=== PATIENT | male | born 1960 | race Caucasian/White ===

== ENCOUNTER 2017-05-15 17:47 | Emergency (ER) | payer MEDICARE, MEDICAID, SELFPAY ==
[2017-05-15 17:32] VITALS: BP 142/85; PULSE 79; RESP 18; O2SAT 99; BMI 23.6
--- NOTE | 2017-05-15 17:52 | XR_ITS ---
EXAM: XR cervical spine 5V HISTORY: Neck pain following injury ITS.REASON: fall ORDERING PHYSICIAN: Daneil Holman MD PATIENT AGE: 57 years COMPARISON: None FINDINGS: There is degenerative disc disease at C4-C5, C5-C6, and C6-C7. There is normal alignment. No fracture or dislocation. Foraminal narrowing is present on the left at C6-C7. Incidental carotid calcifications noted. IMPRESSION: 1. No acute fracture. 2. Cervical spondylosis with degenerative disc disease and foraminal narrowing
--- NOTE | 2017-05-15 17:52 | XR_ITS ---
XR shoulder RT min 2V HISTORY: Pain following injury ITS.REASON: fall ORDERING PHYSICIAN: Daniel Holman MD PATIENT AGE: 57 years COMPARISON: None FINDINGS: No fracture or dislocation. No lytic or blastic change. There is normal mineralization. The joint spaces are well-preserved. No significant degenerative/arthritic changes. No erosive changes evident. There is no fracture of the right fourth and fifth ribs posterior laterally IMPRESSION: No acute finding
--- NOTE | 2017-05-15 17:52 | XR_ITS ---
XR humerus RT CLINICAL INDICATION: Pain following injury ITS.REASON: fall ORDERING PHYSICIAN: Daniel Holman MD PATIENT AGE: 57 years COMPARISON: None FINDINGS: No fracture or dislocation IMPRESSION: Negative right humerus
--- NOTE | 2017-05-15 17:56 | HMH.EDFALL ---
ED Disposition Clinical Impression: Contusion of arm, right, Fall, DJD (degenerative joint disease) of cervical spine Disposition: Home, Self-Care Condition on Discharge: Fair Additional Instructions: 1- rest. 2- ice. 3- elevate. 4- use home pain medicine 5- follow up with pcp on final a xray reports. - Critical Care Critical Care Time: No Attestation: On , the high probability of a clinically significant, sudden or life threatening deterioration of the following system(s) required my full and direct attention, intervention and personal management. The time I documented below is in addition to time spent performing reported procedures but includes the following listed in this critical care notation. Medical Decision Making - Karel Inquiry Pt receiving controlled substance: No Karel was queried for this patient: No Vital Signs: 05/15/17 17:32 Temperature Source Oral Pulse Rate [Right Brachial] 79 Respiratory Rate 18 Blood Pressure [Right Arm] 142/85 Blood Pressure Mean [Right Arm] 104 Blood Pressure Source [Right Arm] Automatic Cuff Blood Pressure Position [Right Arm] Sitting 02 Sat by Pulse Oximetry 99 Oxygen Delivery Method Room Air Orders (Tests/Meds): ORDERS Category Date Time Status Cervical spine XR 5 views [XR cervical spine 5V] Stat Exams 05/15/17 17:52 Taken XR humerus RT Stat Exams 05/15/17 17:52 Taken XR shoulder RT min 2V Stat Exams 05/15/17 17:52 Taken - Radiology Data #1 Image(s): C-Spine, Shoulder, Humerus Image Reviewed: Yes I reviewed the patient's radiology image Preliminary Findings: Normal/NAD DJD of the cervical spine otherwise x-ray shows no fractures dislocation or subluxation. Fall HPI - General Chief Complaint: Fall Stated Complaint: fall with right arm injury Time Seen by Provider: 05/15/17 18:00 Mode of Arrival: EMS Limitations: No Limitations Description of Symptoms (Recalled from ER Triage Doc. by RN): fell yesterday and injured right elbow - History of Present Illness HPI Narrative: 57 years old male with history of coronary artery disease and chronic pain syndrome. Yesterday , the patient claims that he tripped over a box and hit his right arm on an arm chair. He denies being intoxicated, his right arm hurts when he uses it. He has a pain that radiates up to his right shoulder and tingling sensation that radiates down to the fourth and fifth digit. He has no loss of movement he has no loss of color or sensation. He denies loss of lower extremity power or loss of urine or bowel control. He denies head injury or neck pain. Onset (ago): day(s) (Fell yesterday.) Fall from: standing Fall witnessed: no Place fall occurred: home Loss of consciousness: none Prolonged down time: no Symptoms prior to fall: none Context: tripped/slipped Location of injury - extremities: Right: arm (Mid humerus pain and tenderness. ) Severity: mild Quality: dull Associated symptoms (after fall): denies - Related Data Allergies Allergy/AdvReac Type Severity Reaction Status Date / Time acetaminophen [From PERCOCET] Allergy Unknown Unverified 02/08/17 14:12 codeine [CODEINE] Allergy Unknown Unverified 02/08/17 14:12 meperidine [From DEMEROL] Allergy Unknown Unverified 02/08/17 14:12 oxycodone [From PERCOCET] Allergy Unknown Unverified 02/08/17 14:12 Penicillins [PENICILLINS] Allergy Unknown Unverified 02/08/17 14:12 sertraline [From ZOLOFT] Allergy Unknown Unverified 02/08/17 14:12 [facility] History I have reviewed the patient's past medical history: Yes - Social History Educational Level: Completed High School Smoking Status: Current some day smoker Alcohol Intake: never - Psychiatric History Expresses thoughts of harming self/others: None Suicide Plan Description: No Plan ROS Obtained: Yes All systems reviewed & no additional complaints Physical Exam - General General appearance: alert, in no apparent distress - Head Head exa
--- NOTE | 2017-05-15 17:59 | ED_ITS ---
ED Disposition Clinical Impression: Contusion of arm, right, Fall, DJD (degenerative joint disease) of cervical spine Disposition: Home, Self-Care Condition on Discharge: Fair Additional Instructions: 1- rest. 2- ice. 3- elevate. 4- use home pain medicine 5- follow up with pcp on final a xray reports. - Critical Care Critical Care Time: No Attestation: On , the high probability of a clinically significant, sudden or life threatening deterioration of the following system(s) required my full and direct attention, intervention and personal management. The time I documented below is in addition to time spent performing reported procedures but includes the following listed in this critical care notation. Medical Decision Making - Karel Inquiry Pt receiving controlled substance: No Karel was queried for this patient: No Vital Signs: 05/15/17 17:32 Temperature Source Oral Pulse Rate [Right Brachial] 79 Respiratory Rate 18 Blood Pressure [Right Arm] 142/85 Blood Pressure Mean [Right Arm] 104 Blood Pressure Source [Right Arm] Automatic Cuff Blood Pressure Position [Right Arm] Sitting 02 Sat by Pulse Oximetry 99 Oxygen Delivery Method Room Air Orders (Tests/Meds): ORDERS Category Date Time Status Cervical spine XR 5 views [XR cervical spine 5V] Stat Exams 05/15/17 17:52 Taken XR humerus RT Stat Exams 05/15/17 17:52 Taken XR shoulder RT min 2V Stat Exams 05/15/17 17:52 Taken - Radiology Data #1 Image(s): C-Spine, Shoulder, Humerus Image Reviewed: Yes I reviewed the patient's radiology image Preliminary Findings: Normal/NAD DJD of the cervical spine otherwise x-ray shows no fractures dislocation or subluxation. Fall HPI - General Chief Complaint: Fall Stated Complaint: fall with right arm injury Time Seen by Provider: 05/15/17 18:00 Mode of Arrival: EMS Limitations: No Limitations Description of Symptoms (Recalled from ER Triage Doc. by RN): fell yesterday and injured right elbow - History of Present Illness HPI Narrative: 57 years old male with history of coronary artery disease and chronic pain syndrome. Yesterday , the patient claims that he tripped over a box and hit his right arm on an arm chair. He denies being intoxicated, his right arm hurts when he uses it. He has a pain that radiates up to his right shoulder and tingling sensation that radiates down to the fourth and fifth digit. He has no loss of movement he has no loss of color or sensation. He denies loss of lower extremity power or loss of urine or bowel control. He denies head injury or neck pain. Onset (ago): day(s) (Fell yesterday.) Fall from: standing Fall witnessed: no Place fall occurred: home Loss of consciousness: none Prolonged down time: no Symptoms prior to fall: none Context: tripped/slipped Location of injury - extremities: Right: arm (Mid humerus pain and tenderness. ) Severity: mild Quality: dull Associated symptoms (after fall): denies - Related Data Allergies Allergy/AdvReac Type Severity Reaction Status Date / Time acetaminophen [From PERCOCET] Allergy Unknown Unverified 02/08/17 14:12 codeine [CODEINE] Allergy Unknown Unverified 02/08/17 14:12 meperidine [From DEMEROL] Allergy Unknown Unverified 02/08/17 14:12 oxycodone [From PERCOCET] Allergy Unknown Unverified 02/08/17 14
[2017-05-15 19:14] VITALS: BP 134/70; PULSE 80; RESP 20; TEMP 37.1; O2SAT 99
== END 2017-05-15 19:14 | disposition home or self-care (01) ==
PROVIDERS: Emergency Provider Emergency Medicine
DX: S40.021A Contusion of right upper arm, initial encounter (principal); Z88.6 Allergy status to analgesic agent; W01.0XXA Fall on same level from slipping, tripping and stumbling without subsequent striking against object, initial encounter
CPT/HCPCS: 72050; 73030; 73060; 99282

== ENCOUNTER 2017-11-13 23:34 | Observation (INO) ==
--- NOTE | 2017-11-14 03:11 | Emergency Department Note ---
ED Disposition Clinical Impression: Altered mental status, Dementia associated with alcoholism without behavioral disturbance Disposition: Admitted as Observation Condition on Discharge: Fair - Critical Care Critical Care Time: No Attestation: On 11/13/17, the high probability of a clinically significant, sudden or life threatening deterioration of the following system(s) required my full and direct attention, intervention and personal management. The time I documented below is in addition to time spent performing reported procedures but includes the following listed in this critical care notation. Comment: Patient discussed with Dr. Richards and admitted for further workup Medical Decision Making - Medical Records Medical records reviewed: Yes: I reviewed the patient's medical records. - Karel Inquiry Pt receiving controlled substance: No Karel was queried for this patient: No Vital Signs: 11/13/17 23:36 11/14/17 00:41 11/14/17 01:30 Temperature 97.9 F Temperature Source Oral Pulse Rate Pulse Rate [Right Brachial] 88 91 H 73 Respiratory Rate 18 18 14 Blood Pressure Blood Pressure [Right Arm] 169/101 160/90 148/99 Blood Pressure Mean [Right Arm] 123 113 115 Blood Pressure Source [Right Arm] Automatic Cuff Automatic Cuff Manual Cuff/ Doppler Blood Pressure Position [Right Arm] Sitting Sitting Sitting 02 Sat by Pulse Oximetry 100 95 100 Oxygen Delivery Method Room Air Room Air Room Air 11/14/17 03:30 11/14/17 06:57 Temperature 98.6 F Temperature Source Temporal Artery Scan Pulse Rate 85 Pulse Rate [Right Brachial] 70 Respiratory Rate 14 16 Blood Pressure 0/0 Blood Pressure [Right Arm] 150/70 Blood Pressure Mean [Right Arm] 96 Blood Pressure Source [Right Arm] Automatic Cuff Blood Pressure Position [Right Arm] Sitting 02 Sat by Pulse Oximetry 100 Oxygen Delivery Method Room Air - Lab Data Lab results reviewed: Yes: I reviewed the patient's lab results. Lab Results 11/14/17 00:38: POC Glucose 92 11/14/17 04:35: WBC 10.0, RBC 4.69, Hgb 14.5, Hct 45.3, MCV 96.5 H, MCH 31.0, MCHC 32.1, RDW 14.7, Plt Count 395, MPV 8.9, Neut % (Auto) 66.1, Lymph % (Auto) 23.1, [place] % (Auto) 7.3, Eos % (Auto) 2.4, Baso % (Auto) 1.1, Neut # (Auto) 6.6, Lymph # (Auto) 2.3, [place] # (Auto) 0.7, Eos # (Auto) 0.2, Baso # (Auto) 0.1 11/14/17 04:35: PT 10.7, INR 1.04, APTT 30.7 11/14/17 04:35: Sodium 144, Potassium 4.6, Chloride 107, Carbon Dioxide 30, Anion Gap 11.6, BUN 15, Creatinine 0.95, Estimated Creat Clear 94, Estimated GFR 82, Est GFR ( Amer) 99, Glucose 111 H, Calcium 9.4, Total Bilirubin 0.3, AST 16, ALT 24, Alkaline Phosphatase 86, Total Protein 7.2, Albumin 3.6, Globulin 3.6 H, Albumin/Globulin Ratio 1.0 L 11/14/17 05:30: Urine Opiates Screen Negative, Urine Methadone Screen Negative, Ur Barbituates Screen Negative, Ur Phencyclidine Scrn Negative, Ur Amphetamines Screen Negative, U Benzodiazepines Scrn Negative, Urine Cocaine Screen Negative, U Marijuana (THC) Screen Negative Result diagrams: 11/14/17 04:35 11/14/17 04:35 Orders (Tests/Meds): ED MEDICATIONS Generic Name Dose Route Start Last Admin Trade Name Freq PRN Reason Stop Dose Admin Diphenhydramine HCl 25 mg 11/14/17 06:49 Benadryl 50mg/1ml Vial IV 12/14/17 06:48 Q6 PRN Sleep Haloperidol Lactate 5 mg 11/14/17 06:49 Haldol 5mg/Ml Vial IV 12/14/17 06:48 Q4HP PRN Agitation Multivitamins 10 ml/ Thiamine 1,015 mls @ 125 mls/hr 11/14/17 09:00 HCl 100 mg/ Magnesium Sulfate IV 12/14/17 08:59 2 gm/ Lactated Ringer's DAILY KASH Lorazepam 4 mg 11/14/17 06:49 Ativan 2mg/Ml Vial IV 12/14/17 06:48 Q8 PRN Agitation Lorazepam 2 mg 11/14/17 06:49 Ativan 2mg/Ml Vial IV 12/14/17 06:48 Q6H PRN Agitation Discontinued Medications Generic Name Dose Route Start Last Admin Trade Name Freq PRN Reason Stop Dose Admin Diphenhydramine HCl 25 mg 11/14/17 06:15 11/14/17 06:17 Benadryl 50mg/1ml Vial IV 11/14/17 06:16 25 mg ONCE ONE Administration Folic Acid 1 mg 11/14/17 02:20 11/14/17 03:35 Folic Acid 1mg Tablet PO 11/14/17 02:21 Not Given ONCE ONE Haloperidol Lactate 5 mg 11/14/17 06:15 11/14/17 06:17 Haldol 5mg/Ml Vial IV 11/14/17 06:16 5 mg ONCE ONE Administration Multivitamins 10 ml/ Thiamine 1,015 mls @ 150 mls/hr 11/14/17 02:30 HCl 100 mg/ Magnesium Sulfate IV 11/14/17 09:15 2 gm/ Lactated Ringer's .Q6H46M KASH Lactated Ringer's 1,000 mls @ 999 mls/hr 11/14/17 04:30 11/14/17 04:27 Lactated Ringer's 1000 Ml Bag IV 11/14/17 05:30 999 mls/hr .Q1H1M KASH Administration Lorazepam 2 mg 11/14/17 04:25 11/14/17 04:27 Ativan 2mg/Ml Vial IV 11/14/17 04:26 2 mg ONCE ONE Administration Lorazepam 2 mg 11/14/17 06:15 11/14/17 06:17 Ativan 2mg/Ml Vial IV 11/14/17 06:16 2 mg ONCE ONE Administration Thiamine HCl 200 mg 11/14/17 03:27 11/14/17 03:28 Vitamin B-1 100mg Tablet PO 11/14/17 03:28 200 mg ONCE ONE Administration ORDERS Category Date Time Status CT head/brain wo con Stat Cat Scan 11/14/17 00:01 Taken Medical Decision Narrative: Confusion, dementia cannot rule out Wernicke's Korsakoff syndrome Patient continued to be confused pleasant but very forgetful unable to stay on the stretcher taking his clothes urinating on the floor. Patient clearly unable to take care of himself still disoriented to place and time. He will be admitted for further evaluation observation thiamine therapy. He needed a sedation with Ativan and Haldol Altered Mental Status HPI - General Chief Complaint: Overdose Stated Complaint: OD Time Seen by Provider: 11/13/17 23:40 Mode of Arrival: EMS Limitations: Altered Mental Status Description of Symptoms (Recalled from ER Triage Doc. by RN): Neighbors called 911 when the pt was found in the hallway and thought he was overdosing on drugs. - History of Present Illness HPI narrative: Patient is a well-known individual to this ER with history of multiple subdural hematomas altered mental status he was found laying outside and brought in patient is not in any acute distress but disoriented MD complaint: altered mental status - Related Data Home Medications Medication Instructions Recorded Confirmed Baclofen [Lioresal 10mg tablet] 10 mg PO BID 09/07/17 09/07/17 Butalb/Acetaminophen/Caffeine 1 each PO Q6 09/07/17 09/07/17 [Fiorcet Tablet] Cyclobenzaprine HCl [Flexeril 10mg 10 mg PO TID 09/07/17 09/07/17 tablet] Gabapentin [Neurontin 300mg 300 mg PO TID 09/07/17 09/07/17 capsule] Isosorbide Mononitrate [Imdur 30mg 30 mg PO DAILY 09/07/17 09/07/17 ER tablet] Quetiapine Fumarate [Seroquel 100 mg PO DAILY 09/07/17 09/07/17 100mg Tablet] RX: Bisoprolol Fumarate [Zebeta 5 mg PO DAILY 09/07/17 09/07/17 5mg tablet] buPROPion HCl [Wellbutrin Sr] 200 mg PO BID 09/07/17 09/07/17 Allergies Allergy/AdvReac Type Severity Reaction Status Date / Time acetaminophen [From PERCOCET] Allergy Unknown Verified 10/30/17 04:35 codeine [CODEINE] Allergy Unknown Verified 10/30/17 04:35 meperidine [From DEMEROL] Allergy Unknown Verified 10/30/17 04:35 oxycodone [From PERCOCET] Allergy Unknown Verified 10/30/17 04:35 Penicillins [PENICILLINS] Allergy Unknown Verified 10/30/17 04:35 sertraline [From ZOLOFT] Allergy Unknown Verified 10/30/17 04:35 [facility] History I have reviewed the patient's past medical history: Yes Medical History: Reports:: Dementia Denies:: Diabetes Mellitus Type 1, Diabetes Mellitus Type 2 Other Medical History: Reports: Other (alcoholism, bipora disorder) Amputation: No Fractures: No - Social History Smoking Status: Current every day smoker Tobacco Type: cigarettes Alcohol Intake: former Alcohol Intake Frequency:: a few times a month Substance Use Type: unknown - Psychiatric History Expresses thoughts of harming self/others: None Suicide Plan Description: No Plan ROS Obtained: Yes unobtainable due to mental status Patient is not a great historian is awake and alert but unable to give a good history Physical Exam - General General appearance: alert, in no apparent distress - Head Head exam: normocephalic, normal inspection, other (Multiple old scars of his f lucia and forehead) - Eye Eye exam: Present: normal appearance, PERRL, EOMI - ENT ENT exam: Present: normal exam, normal oropharynx, mucous membranes moist, TM's normal bilaterally, normal external ear exam - Neck Neck exam: Present: normal inspection, full ROM, trachea midline. Absent: meningismus, lymphadenopathy - Chest Chest inspection: Present: normal inspection, symmetric chest wall rise. Absent: tenderness - Respiratory Respiratory exam: Present: normal lung sounds bilaterally. Absent: respiratory distress - Cardiovascular Cardiovascular exam: Present: regular rate, normal rhythm. Absent: JVD - Abdominal Exam Abdominal exam: Present: soft, normal bowel sounds. Absent: distention, tenderness, guarding - Extremities Exam Extremities exam: Present: normal inspection, full ROM, normal capillary refill. Absent: calf tenderness - Back Exam Back exam: Present: normal inspection. Absent: tenderness - Neurological Exam Neurological exam: Present: alert, normal gait (Patient thinks he is at home but able to follow commands) - Psychiatric Psychiatric exam: Present: normal affect, normal mood - Skin Skin exam: Present: warm, dry, intact, normal color - Lymphatic Lymphatic Findings: no adenopathy
[2017-11-14 05:04] LABS: Activated Partial Thrombo Time 30.7 seconds (23.6-34.0); INR 1.04 (0.9-1.1); Prothrombin Time 10.7 seconds (9.4-11.8)
[2017-11-14 05:07] LABS: Albumin Level 3.6 gm/dL (3.4-5.0); Anion Gap 11.6 mEq/L (5-15); Bilirubin,Total 0.3 mg/dL (0.2-1.0); Calcium 9.4 mg/dL (8.5-10.1); Globulin 3.6 gm/dl (1.3-3.2); Potassium 4.6 mmoL/L (3.5-5.1); Total Protein,Serum 7.2 gm/dL (6.4-8.2)
[2017-11-14 05:10] LABS: Basophils # 0.1 K/mm3 (0-0.2); Basophils % 1.1 % (0.1-2.0); Eosinophils # 0.2 K/mm3 (0.0-0.4); Eosinophils % 2.4 % (0.1-12.0); Hematocrit 45.3 % (42.0-52.0); Hemoglobin 14.5 g/dL (14.1-18.0); Lymphocytes # 2.3 K/mm3 (0.7-4.5); Lymphocytes % 23.1 K/mm3 (10-50); Mean Corpuscular HGB Conc 32.1 g/dL (31.8-35.4); Mean Corpuscular Volume 96.5 fl (80-94); Mean Platelet Volume 8.9 fl (7.4-10.4); Monocytes # 0.7 K/mm3 (0.1-1.0); Monocytes % 7.3 % (1.7-9.3); Neutrophils # 6.6 K/mm3 (1.8-7.8); Neutrophils % 66.1 % (37.0-80.0); Platelet Count 395 K/mm3 (142-424); Red Blood Count 4.69 M/mm3 (4.60-6.20); Red Cell Distribution Width 14.7 % (11.5-17.5)
[2017-11-14 05:45] LABS: Amphetamine/Metha Screen,Urine Negative ng/mL (<1000); Barbiturates Screen,Urine Negative ng/mL (<200); Benzodiazepines Screen,Urine Negative ng/mL (<200); Cannabinoid Screen,Urine Negative ng/mL (<50); Cocaine Screen,Urine Negative ng/mL (<300); Methadone Screen,Urine Negative ng/mL (<300); Opiate Screen,Urine Negative ng/mL (<300); Phencyclidine Screen,Urine Negative ng/mL (<25)
--- NOTE | 2017-11-14 07:34 | Pharmacy Consult Notes ---
[facility] Pharmacy VTE Monitoring - Patient Demographics Admission date: 11/14/17 Report Date: 11/14/17 Time: 07:34 Allergies/Adverse Reactions: Patient Allergies acetaminophen [From PERCOCET] Allergy (Unknown, Verified 10/30/17 04:35) codeine [CODEINE] Allergy (Unknown, Verified 10/30/17 04:35) meperidine [From DEMEROL] Allergy (Unknown, Verified 10/30/17 04:35) oxycodone [From PERCOCET] Allergy (Unknown, Verified 10/30/17 04:35) Penicillins [PENICILLINS] Allergy (Unknown, Verified 10/30/17 04:35) sertraline [From ZOLOFT] Allergy (Unknown, Verified 10/30/17 04:35) Height: 1.8 m Weight: 77.111 kg Patient Problems: Current Active Problems Altered mental status (Acute) Dementia associated with alcoholism without behavioral disturbance (Acute) - VTE Risk Labs: VTE Related Lab Results Hgb 14.5 g/dL (14.1-18.0) 11/14/17 04:35 Hct 45.3 % (42.0-52.0) 11/14/17 04:35 Plt Count 395 K/mm3 (142-424) 11/14/17 04:35 PT 10.7 seconds (9.4-11.8) 11/14/17 04:35 INR 1.04 (0.9-1.1) 11/14/17 04:35 APTT 30.7 seconds (23.6-34.0) 11/14/17 04:35 BUN 15 mg/dL (7-18) 11/14/17 04:35 Creatinine 0.95 mg/dL (0.70-1.30) 11/14/17 04:35 Estimated Creat Clear 94 mL/min (0-300) 11/14/17 04:35 - Prophylaxis VTE Prophylaxis Ordered?: Yes Types of VTE Prophylaxis: TEDS Knee High Location of Applied Device: Bilateral Lower Extremeties - VTE Diagnosis Confirmed Treatment or plan recommended: Continue Current Treatment
--- NOTE | 2017-11-14 09:06 | History & Physical Report ---
*Admission Date: 11/14/17 <Alena Mccauley 11/14/17 09:13> *Chief complaint: Altered mental status <Alena Mccauley 11/14/17 09:13> *History of present illness: is a 57-year-old male with a history of psychiatric illness and subdural hematomas. He has had multiple ER visits in the past and was actually sent to [facility] after subdural hematomas. He was brought to the emergency room this a.m. after being found out of his room with altered mental status. In the emergency room he was agitated and restless and was given IV Ativan, Benadryl, and Haldol. After these medicines he became quite sedated. He was then admitted for further evaluation and treatment. Patient is unable to give history. There is no family/significant other available. Discussed with the ER physician who stated this happens quite frequently. He is usually assessed in the ER and observed and after becoming more mentally alert with no changes in head CT, he would be discharged to home. This a.m. at time of exam patient is restless and in constant motion in the bed. He occasionally rests his head on the side of the bed.. He does not answer questions but does follow some simple commands at times. <Alena Mccauley 11/14/17 11:27> [facility] History Medical History: Reports:: Dementia, Internal Pacemaker Denies:: Cancer, Diabetes Mellitus Type 1, Diabetes Mellitus Type 2, MRSA <Alena Mccauley 11/14/17 09:13> Other Medical History: Reports: Other (alcoholism, bipora disorder) <Alena Mccauley 11/14/17 09:13> Comment: He does have a psychiatric history <Alena Mccauley 11/14/17 09:13> Other Surgeries: Yes: Pacemaker <Alena Mccauley 11/14/17 09:13> Amputation: No <ParisaAlena 11/14/17 09:13> Fractures: No <Alena Mccauley 11/14/17 09:13> - *Social History Smoking Status: Current every day smoker <ParisaAlena 11/14/17 09:13> Tobacco Type: cigarettes <Alena Mccauley 11/14/17 09:13> Alcohol Intake: current <Alena Mccauley - 11/14/17 09:13> Alcohol Intake Frequency:: a few times a month <Alena Mccauley 11/14/17 09:13> Substance Use Type: unknown <Alena Mccauley 11/14/17 09:13> Occupational Status: disabled <Alena Mccauley 11/14/17 09:13> - Psychiatric History Expresses thoughts of harming self/others: None <Alena Mccauley 11/14/17 09:13> Suicide Plan Description: No Plan <Alena Mccauley 11/14/17 09:13> *Family Hx:: Unable to obtain <Alena Mccauley 11/14/17 09:13> Review of Systems - Review of Systems Review of systems:: unable to obtain <Alena Mccauley 11/14/17 09:13> Meds Home Medications Medication Instructions Recorded Confirmed Type Baclofen [Lioresal 10mg tablet] 10 mg PO TID 09/07/17 11/14/17 History Bisoprolol Fumarate [Zebeta 5mg 5 mg PO DAILY 09/07/17 11/14/17 History tablet] Butalb/Acetaminophen/Caffeine 1 each PO Q6H 09/07/17 11/14/17 History [Fiorcet Tablet] Cyclobenzaprine HCl [Flexeril 10mg 10 mg PO TID 09/07/17 11/14/17 History tablet] Gabapentin [Neurontin 300mg 300 mg PO TID 09/07/17 11/14/17 History capsule] Isosorbide Mononitrate [Imdur 30mg 30 mg PO DAILY 09/07/17 11/14/17 History ER tablet] Quetiapine Fumarate [Seroquel 100 mg PO DAILY 09/07/17 11/14/17 History 100mg Tablet] buPROPion HCl [Wellbutrin Sr] 200 mg PO BID 09/07/17 11/14/17 History <Judd Jerez - 11/14/17 11:47> Allergies Allergy/AdvReac Type Severity Reaction Status Date / Time codeine [CODEINE] Allergy Unknown Unknown Verified 11/14/17 11:42 allergy reaction meperidine [From DEMEROL] Allergy Unknown Unknown Verified 11/14/17 11:42 allergy reaction oxycodone [From PERCOCET] Allergy Unknown Unknown Verified 11/14/17 11:42 allergy reaction Penicillins [PENICILLINS] Allergy Unknown Unknown Verified 11/14/17 11:42 allergy reaction sertraline [From ZOLOFT] Allergy Unknown Unknown Verified 11/14/17 11:42 allergy reaction <Judd Jerez - 11/14/17 11:47> Exam Vital signs and Labs for Last 24 Hours: Temp Pulse Resp BP Pulse Ox 97.0 F L 86 14 129/78 85 L 11/14/17 08:00 11/14/17 08:00 11/14/17 08:00 11/14/17 08:00 11/14/17 08:00 Laboratory Results - last 24 hr 11/14/17 00:38: POC Glucose 92 11/14/17 04:35: WBC 10.0, RBC 4.69, Hgb 14.5, Hct 45.3, MCV 96.5 H, MCH 31.0, MCHC 32.1, RDW 14.7, Plt Count 395, MPV 8.9, Neut % (Auto) 66.1, Lymph % (Auto) 23.1, [place] % (Auto) 7.3, Eos % (Auto) 2.4, Baso % (Auto) 1.1, Neut # (Auto) 6.6, Lymph # (Auto) 2.3, [place] # (Auto) 0.7, Eos # (Auto) 0.2, Baso # (Auto) 0.1 11/14/17 04:35: PT 10.7, INR 1.04, APTT 30.7 11/14/17 04:35: Sodium 144, Potassium 4.6, Chloride 107, Carbon Dioxide 30, Anion Gap 11.6, BUN 15, Creatinine 0.95, Estimated Creat Clear 94, Estimated GFR 82, Est GFR ( Amer) 99, Glucose 111 H, Calcium 9.4, Total Bilirubin 0.3, AST 16, ALT 24, Alkaline Phosphatase 86, Total Protein 7.2, Albumin 3.6, Globulin 3.6 H, Albumin/Globulin Ratio 1.0 L 11/14/17 05:30: Urine Opiates Screen Negative, Urine Methadone Screen Negative, Ur Barbituates Screen Negative, Ur Phencyclidine Scrn Negative, Ur Amphetamines Screen Negative, U Benzodiazepines Scrn Negative, Urine Cocaine Screen Negative, U Marijuana (THC) Screen Negative 11/14/17 11:13: POC Glucose 90 <Judd Jerez - 11/14/17 11:47> Temp Pulse Resp BP Pulse Ox 97.0 F L 86 14 129/78 85 L 11/14/17 08:00 11/14/17 08:00 11/14/17 08:00 11/14/17 08:00 11/14/17 08:00 Laboratory Results - last 24 hr 11/14/17 00:38: POC Glucose 92 11/14/17 04:35: WBC 10.0, RBC 4.69, Hgb 14.5, Hct 45.3, MCV 96.5 H, MCH 31.0, MCHC 32.1, RDW 14.7, Plt Count 395, MPV 8.9, Neut % (Auto) 66.1, Lymph % (Auto) 23.1, [place] % (Auto) 7.3, Eos % (Auto) 2.4, Baso % (Auto) 1.1, Neut # (Auto) 6.6, Lymph # (Auto) 2.3, [place] # (Auto) 0.7, Eos # (Auto) 0.2, Baso # (Auto) 0.1 11/14/17 04:35: PT 10.7, INR 1.04, APTT 30.7 11/14/17 04:35: Sodium 144, Potassium 4.6, Chloride 107, Carbon Dioxide 30, Anion Gap 11.6, BUN 15, Creatinine 0.95, Estimated Creat Clear 94, Estimated GFR 82, Est GFR ( Amer) 99, Glucose 111 H, Calcium 9.4, Total Bilirubin 0.3, AST 16, ALT 24, Alkaline Phosphatase 86, Total Protein 7.2, Albumin 3.6, Globulin 3.6 H, Albumin/Globulin Ratio 1.0 L 11/14/17 05:30: Urine Opiates Screen Negative, Urine Methadone Screen Negative, Ur Barbituates Screen Negative, Ur Phencyclidine Scrn Negative, Ur Amphetamines Screen Negative, U Benzodiazepines Scrn Negative, Urine Cocaine Screen Negative, U Marijuana (THC) Screen Negative <Martha Mccauleyhy - 11/14/17 09:13> I & O for Last 24 hours: Intake & Output 09/11/12/17 11/13/17 11/14/17 11:59 11:59 11:59 11:59 Weight 131 lb 8 oz <Judd Jerez - 11/14/17 11:47> Intake & Output 11/11/17 11/12/17 11/13/17 11/14/17 11:59 11:59 11:59 11:59 Weight 131 lb 8 oz <Alena Mccauley 11/14/17 09:13> Radiology Reports for the Last 24 Hours: 11/14/17 IMPRESSION: No acute intracranial findings. Brain within normal limits. No significant change since previous study. <Alena Mccauley 11/14/17 11:31> - Constitutional thin, agitated <Alena Mccauley 11/14/17 09:13> Comments: Will not keep oxygen or gown on. Restless with almost constant movement in the bed going from position and rotating from head of bed to the foot of the bed. Occasionally will doze off for a few minutes. <Alena Mccauley 11/14/17 11:27> - *Routine HEENT Exam Head: Present: normocephalic, atraumatic <Alena Mccauley 11/14/17 09:13> Eye: Absent: conjunctival icterus, scleral injection <Alena Mccauley 11/14/17 11:27> - *Routine Respiratory Exam Comments: Poor inspiratory effort <Alena Mccauley 11/14/17 11:27> - *Routine Cardiovascular Exam Present: RRR <Alena Mccauley 11/14/17 11:27> Comments: Pacemaker noted in left upper chest <Alena Mccauley 11/14/17 09:13> - *Routine Abdominal Exam Present: soft, normoactive bowel sounds. Absent: tenderness, distended, guarding <Alena Mccauley 11/14/17 09:13> - *Routine Extremities Exam Absent: edema <Alena Mccauley 11/14/17 09:13> - *Routine Skin Exam Present: intact, dry, mottling (some of arms and legs) <Alena Mccauley 11/14/17 11:27> Comments: Some mildly of arms and legs. Skin is cool and dry. <Alena Mccauley 11/14/17 09:13> - *Routine Neurological Exam Present: altered mental status, moving all extremities <Alena Mccauley - 11/14/17 09:13> sedated and restless <Alena Mccauley 11/14/17 11:27> Assessment and Plan (1) Altered mental status Current visit: No Status: Acute Qualifiers: Altered mental status type: unspecified Qualified Code(s): R41.82 - Altered mental status, unspecified Category: Medical Code(s): R41.82 - Altered mental status, unspecified (2) Alcoholism Current visit: No Status: Chronic Category: Medical Code(s): F10.20 - Alcohol dependence, uncomplicated <uJdd Jerez - 11/14/17 11:47> (1) Altered mental status Current visit: No Status: Acute Qualifiers: Altered mental status type: unspecified Qualified Code(s): R41.82 - Altered mental status, unspecified Category: Medical Code(s): R41.82 - Altered mental status, unspecified (2) Alcoholism Current visit: No Status: Chronic Category: Medical Code(s): F10.20 - Alcohol dependence, uncomplicated <Alena Mccauley - 11/14/17 11:31> - Assessment and plan all Dx Assessment and Plan for all problems:: Saw patient, agree with above note. <Judd Jerez 11/14/17 11:47> Patient was given Ativan, Benadryl, and Haldol IV in the emergency room. He is somewhat sedated with decrease in response. We will need to continue to monitor him; Currently nursing has 1 on 1; with safety precautions . <Alena Mccauley 11/14/17 11:31>
--- NOTE | 2017-11-14 17:00 | Progress Note ---
Internal Medicine - PN: Subj *Date: 11/14/17 *Time: 16:57 Interval history: Patient eating a regular diet and wants to go home. Exam Vital signs and Labs for Last 24 Hours: Temp Pulse Resp BP Pulse Ox 98.3 F 91 H 16 158/80 100 11/14/17 15:49 11/14/17 15:49 11/14/17 15:49 11/14/17 15:49 11/14/17 15:49 Laboratory Results - last 24 hr 11/14/17 00:38: POC Glucose 92 11/14/17 04:35: WBC 10.0, RBC 4.69, Hgb 14.5, Hct 45.3, MCV 96.5 H, MCH 31.0, MCHC 32.1, RDW 14.7, Plt Count 395, MPV 8.9, Neut % (Auto) 66.1, Lymph % (Auto) 23.1, [place] % (Auto) 7.3, Eos % (Auto) 2.4, Baso % (Auto) 1.1, Neut # (Auto) 6.6, Lymph # (Auto) 2.3, [place] # (Auto) 0.7, Eos # (Auto) 0.2, Baso # (Auto) 0.1 11/14/17 04:35: PT 10.7, INR 1.04, APTT 30.7 11/14/17 04:35: Sodium 144, Potassium 4.6, Chloride 107, Carbon Dioxide 30, Anion Gap 11.6, BUN 15, Creatinine 0.95, Estimated Creat Clear 94, Estimated GFR 82, Est GFR ( Amer) 99, Glucose 111 H, Calcium 9.4, Total Bilirubin 0.3, AST 16, ALT 24, Alkaline Phosphatase 86, Total Protein 7.2, Albumin 3.6, Globulin 3.6 H, Albumin/Globulin Ratio 1.0 L 11/14/17 05:30: Urine Opiates Screen Negative, Urine Methadone Screen Negative, Ur Barbituates Screen Negative, Ur Phencyclidine Scrn Negative, Ur Amphetamines Screen Negative, U Benzodiazepines Scrn Negative, Urine Cocaine Screen Negative, U Marijuana (THC) Screen Negative 11/14/17 11:13: POC Glucose 90 11/14/17 16:42: POC Glucose 83 I & O for Last 24 hours: Intake & Output 11/12/17 11/13/17 11/14/17 11/15/17 11:59 11:59 11:59 11:59 Intake Total 240 / 240 Balance 240 / 240 Weight 131 lb 8 oz - Constitutional no acute distress (conversant) Assessment and Plan (1) Altered mental status Current visit: No Status: Acute Qualifiers: Altered mental status type: unspecified Qualified Code(s): R41.82 - Altered mental status, unspecified Category: Medical Code(s): R41.82 - Altered mental status, unspecified (2) Bipolar 1 disorder, manic, mild Current visit: No Status: Acute Category: Medical Code(s): F31.11 - Bipolar disorder, current episode manic without psychotic features, mild (3) Alcoholism Current visit: No Status: Chronic Category: Medical Code(s): F10.20 - Alcohol dependence, uncomplicated - Assessment and plan all Dx Assessment and Plan for all problems:: Discussed current treatment with Dr. Glenn Valentino, patient primary care provider, in [place], [place]. He agrees with discharge home and emphasizing medication compliance to patient. He would like to see patient in his office in the next week or so.
--- NOTE | 2017-11-15 18:26 | Discharge Summary ---
General - General Admission date:: 11/14/17 Discharge date: 11/14/17 HPI HPI: is a 57-year-old male with a history of psychiatric illness and subdural hematomas. He has had multiple ER visits in the past and was actually sent to [facility] for subdural hematomas. He was brought to the emergency room this a.m. after being found out of his room with altered mental status. In the emergency room he was agitated and restless and was given IV Ativan, Benadryl, and Haldol. After these medicines he became quite sedated. He was then admitted for further evaluation and treatment. Patient is unable to give history. There is no family/significant other available. Discussed with the ER physician who stated this happens quite frequently. He is usually assessed in the ER and observed and after becoming more mentally alert with no changes in head CT, he would be discharged to home. This a.m. at time of exam patient is restless and in constant motion in the bed. He occasionally rests his head on the side of the bed.. He does not answer questions but does follow some simple commands at times. Hospital Course Hospital Course: He was monitored with 1 on 1 care and safety precautions. He did become conversant and was able to eat normally. His care and treatment was discussed with Dr. Glenn Valentino, patient's primary care provider, in [place], [place]. He agreed with discharge home and emphasizing medication compliance to patient. He would like to see patient in his office in the next week or so. Objective Vital signs: Temp Pulse Resp BP Pulse Ox 98.3 F 91 H 16 158/80 100 11/14/17 15:49 11/14/17 15:49 11/14/17 15:49 11/14/17 15:49 11/14/17 15:49 Narrative: - Constitutional thin, agitated Comments: Will not keep oxygen or gown on. Restless with almost constant movement in the bed going from position and rotating from head of bed to the foot of the bed. Occasionally will doze off for a few minutes. - *Routine HEENT Exam Head: Present: normocephalic, atraumatic Eye: Absent: conjunctival icterus, scleral injection - *Routine Respiratory Exam Comments: Poor inspiratory effort - *Routine Cardiovascular Exam Present: RRR Comments: Pacemaker noted in left upper chest - *Routine Abdominal Exam Present: soft, normoactive bowel sounds. Absent: tenderness, distended, guarding - *Routine Extremities Exam Absent: edema - *Routine Skin Exam Present: intact, dry, mottling (some of arms and legs) Comments: Some mildly of arms and legs. Skin is cool and dry. - *Routine Neurological Exam Present: altered mental status, moving all extremities sedated and restless DS: Diagnosis - Discharge Diagnosis (1) Altered mental status Status: Acute (2) Bipolar 1 disorder, manic, mild Status: Acute (3) Alcoholism Status: Chronic Discharge Plan - Patient Discharge Instructions ACTIVITY: Continue current activity DIET: continue same diet Patient Instructions: Enhancing Memory and Mental Function (Alternative Therapy), Alcohol Use Disorder - Follow up Plan Unknown provider or service follow up:: Follow up with Dr. Glenn Valentino in [place] within the next week. Disposition: Home, Self-Nursing Home Medications: Home Medications Medication Instructions Recorded Confirmed Type Bisoprolol Fumarate [Zebeta 5mg 5 mg PO DAILY 09/07/17 11/14/17 History tablet] Gabapentin [Neurontin 300mg 300 mg PO TID 09/07/17 11/14/17 History capsule] Isosorbide Mononitrate [Imdur 30mg 30 mg PO DAILY 09/07/17 11/14/17 History ER tablet] Quetiapine Fumarate [Seroquel 100 mg PO DAILY 09/07/17 11/14/17 History 100mg Tablet] buPROPion HCl [Wellbutrin Sr] 200 mg PO BID 09/07/17 11/14/17 History Prescriptions/Medication Reconciliation: Continue Gabapentin [Neurontin 300mg capsule] 300 mg PO TID Quetiapine Fumarate [Seroquel 100mg Tablet] 100 mg PO DAILY Isosorbide Mononitrate [Imdur 30mg ER tablet] 30 mg PO DAILY buPROPion HCl [Wellbutrin Sr] 200 mg PO BID Bisoprolol Fumarate [Zebeta 5mg tablet] 5 mg PO DAILY Discontinued Cyclobenzaprine HCl [Flexeril 10mg tablet] 10 mg PO TID Butalb/Acetaminophen/Caffeine [Fiorcet Tablet] 1 each PO Q6H Baclofen [Lioresal 10mg tablet] 10 mg PO TID
== END 2017-11-14 18:11 | disposition home or self-care (01) ==
LOC: ER 23:34 → 2ND 23:34
PROVIDERS: ADMIT Family Medicine; ATTEND Family Medicine
CPT/HCPCS: 70450; 80053; 80305; 82962; 85025; 85610; 85730; 96365; 96375; 99284; G0378

== ENCOUNTER 2018-03-13 21:28 | Inpatient (IN) ==
[2018-03-13 22:06] LABS: Basophils # 0.1 K/mm3 (0-0.2); Basophils % 0.8 % (0.1-2.0); Eosinophils # 0.2 K/mm3 (0.0-0.4); Eosinophils % 1.5 % (0.1-12.0); Hematocrit 50.4 % (42.0-52.0); Hemoglobin 17.4 g/dL (14.1-18.0); Lymphocytes # 3.1 K/mm3 (0.7-4.5); Lymphocytes % 22.7 % (10-50); Mean Corpuscular HGB Conc 34.5 g/dL (31.8-35.4); Mean Corpuscular Hemoglobin 33.7 pg (27.0-31.2); Mean Corpuscular Volume 97.8 fl (80-94); Mean Platelet Volume 8.7 fl (7.4-10.4); Monocytes # 0.7 K/mm3 (0.1-1.0); Neutrophils # 9.6 K/mm3 (1.8-7.8); Neutrophils % 69.9 % (37.0-80.0); Platelet Count 324 K/mm3 (142-424); Red Blood Count 5.16 M/mm3 (4.60-6.20); Red Cell Distribution Width 14.4 % (11.5-17.5); White Blood Count 13.8 K/mm3 (4.8-10.8)
[2018-03-13 22:30] LABS: Albumin Level 4.7 gm/dL (3.4-5.0); Albumin/Globulin Ratio 1.2 (1.1-1.8); Anion Gap 21.3 mEq/L (5-15); Bilirubin,Total 0.6 mg/dL (0.2-1.0); Calcium 10.4 mg/dL (8.5-10.1); Potassium 5.3 mmoL/L (3.5-5.1); Salicylate 8.3 mg/dL (2.8-20.0); Total Protein,Serum 8.7 gm/dL (6.4-8.2)
--- NOTE | 2018-03-13 23:18 | Emergency Department Note ---
ED Disposition Clinical Impression: Altered mental status Qualifiers: Altered mental status type: unspecified Qualified Code(s): R41.82 - Altered mental status, unspecified Disposition: Admitted as Observation Condition on Discharge: Serious - Critical Care Critical Care Time: No Attestation: On 03/13/18, the high probability of a clinically significant, sudden or life threatening deterioration of the following system(s) required my full and direct attention, intervention and personal management. The time I documented below is in addition to time spent performing reported procedures but includes the following listed in this critical care notation. Medical Decision Making - Medical Records Medical records reviewed: Yes: I reviewed the patient's medical records. - Karel Inquiry Pt receiving controlled substance: No Vital Signs: 03/13/18 21:31 03/13/18 23:59 Temperature 97 F L Temperature Source Temporal Artery Scan Pulse Rate [Right Radial] 89 99 H Respiratory Rate 20 14 Blood Pressure [Right Arm] 148/70 H Blood Pressure Mean [Right Arm] 96 02 Sat by Pulse Oximetry 98 91 L - Lab Data Lab results reviewed: Yes: I reviewed the patient's lab results. Lab Results 03/13/18 22:00: WBC 13.8 H, RBC 5.16, Hgb 17.4, Hct 50.4, MCV 97.8 H, MCH 33.7 H , MCHC 34.5, RDW 14.4, Plt Count 324, MPV 8.7, Neut % (Auto) 69.9, Lymph % (Auto) 22.7, [place] % (Auto) 5.0, Eos % (Auto) 1.5, Baso % (Auto) 0.8, Neut # (Auto) 9.6 H, Lymph # (Auto) 3.1, [place] # (Auto) 0.7, Eos # (Auto) 0.2, Baso # (Auto) 0.1 03/13/18 22:00: Sodium 142, Potassium 5.3 H, Chloride 100, Carbon Dioxide 26, Anion Gap 21.3 H, BUN 16, Creatinine 1.43 H, Estimated Creat Clear 54, Estimated GFR 51 L, Est GFR ( Amer) 61, Glucose 122 H, Calcium 10.4 H, Total Bilirubin 0.6, AST 15, ALT 22, Alkaline Phosphatase 114, Total Protein 8.7 H, Albumin 4.7, Globulin 4.0 H, Albumin/Globulin Ratio 1.2, Salicylates 8.3, Acetaminophen 0 L, Plasma/Serum Alcohol 0 Result diagrams: 03/13/18 22:00 03/13/18 22:00 Orders (Tests/Meds): ED MEDICATIONS Generic Name Dose Route Start Last Admin Trade Name Margy PRN Reason Stop Dose Admin Sodium Chloride 10 ml 03/13/18 22:00 Saline Flush 10ml Syringe IV 04/12/18 21:59 NEEDED PRN Maintain IV Site Discontinued Medications Generic Name Dose Route Start Last Admin Trade Name Freq PRN Reason Stop Dose Admin Haloperidol Lactate 5 mg 03/13/18 22:07 03/13/18 22:10 Haldol 5mg/Ml Vial IM 03/13/18 22:08 5 mg ONCE ONE Administration Haloperidol Lactate 5 mg 03/13/18 22:57 03/13/18 23:07 Haldol 5mg/Ml Vial IM 03/13/18 22:58 5 mg ONCE ONE Administration Lorazepam 2 mg 03/13/18 23:29 03/13/18 23:29 Ativan 2mg/Ml Vial IM 03/13/18 23:30 2 mg ONCE ONE Administration ORDERS Category Date Time Status CT head/brain wo con Stat Cat Scan 03/13/18 22:00 Taken Drug Screen,Urine Stat Lab 03/13/18 21:43 Ordered Urinalysis and Microscopic Stat Lab 03/13/18 21:43 Ordered - CT Data CT Scan: Head Time Received: 01:[address] Reviewed: Yes: I have viewed the radiologist's interpretation Preliminary Findings: Normal/NAD - Physician Consults Physician Consulted: bene Reason -: Pt condition Additional Consult: sound Reason -: Admission Altered Mental Status HPI - General Chief Complaint: Altered Mental Status Stated Complaint: altered mental status Time Seen by Provider: 03/13/18 21:35 Mode of Arrival: EMS Source of Information: Patient, EMS, Medical Record Limitations: Altered Mental Status Description of Symptoms (Recalled from ER Triage Doc. by RN): ems responded to life alert call. found patient at home, throwing stuff, table turned over, broken glasses. pt has no complaints. - History of Present Illness HPI narrative: life alert called and ems found pt combative and uncontrolled behavior and has hx of pschy issues - pt with no trauma - no known fever but unable to give specific hx MD complaint: altered mental status Onset (ago): unknown Severity: similar to previous episodes Context: history of similar presentation Associated symptoms: denies other symptoms - Related Data Home Medications Medication Instructions Recorded Confirmed Bisoprolol Fumarate [Zebeta 5mg 5 mg PO DAILY 09/07/17 03/13/18 tablet] Gabapentin [Neurontin 300mg 300 mg PO TID 09/07/17 03/13/18 capsule] Isosorbide Mononitrate [Imdur 30mg 30 mg PO DAILY 09/07/17 03/13/18 ER tablet] Quetiapine Fumarate [Seroquel 100 mg PO DAILY 09/07/17 03/13/18 100mg Tablet] Baclofen [Lioresal 10mg tablet] 10 mg PO TID 03/14/18 03/14/18 Cyclobenzaprine HCl 5 mg PO TID 03/14/18 03/14/18 [Cyclobenzaprine 5mg Tab] Allergies Allergy/AdvReac Type Severity Reaction Status Date / Time codeine [CODEINE] Allergy Unknown Unknown Verified 03/13/18 21:43 allergy reaction meperidine [From DEMEROL] Allergy Unknown Unknown Verified 03/13/18 21:43 allergy reaction oxycodone [From PERCOCET] Allergy Unknown Unknown Verified 03/13/18 21:43 allergy reaction Penicillins [PENICILLINS] Allergy Unknown Unknown Verified 03/13/18 21:43 allergy reaction sertraline [From ZOLOFT] Allergy Unknown Unknown Verified 03/13/18 21:43 allergy reaction [facility] History - Hepatitis A Screen Drug use history?: Yes High risk sexual behaviors?: No History of sexually transmitted infection?: No Currently employed?: No Childcare worker?: No Do you have indoor plumbing?: Yes Do you have electricity?: Yes Attestation statement:: This patient has been screened for Hepatitis A risk factors. I have reviewed the patient's past medical history: Yes Medical History: Reports:: Dementia, Internal Pacemaker Denies:: Cancer, Diabetes Mellitus Type 1, Diabetes Mellitus Type 2, MRSA Other Medical History: Reports: Other (alcoholism, bipora disorder) Comment: He does have a psychiatric history Other Surgeries: Yes: Pacemaker Amputation: No Fractures: No - Social History Smoking Status: Current every day smoker Tobacco Type: cigarettes Alcohol Intake: never Alcohol Intake Frequency:: a few times a month Substance Use Type: unknown Occupational Status: disabled - Psychiatric History Expresses thoughts of harming self/others: None Suicide Plan Description: No Plan Family Hx:: Unable to obtain ROS Obtained: Yes unobtainable due to mental status Physical Exam - General General appearance: in no apparent distress - Head Head exam: atraumatic - Eye Eye exam: Present: PERRL, EOMI. Absent: scleral icterus - ENT ENT exam: Present: mucous membranes dry, other (no evid of tongue biting ) - Neck Neck exam: Present: trachea midline - Respiratory Respiratory exam: Present: normal lung sounds bilaterally. Absent: respiratory distress - Cardiovascular Cardiovascular exam: Present: regular rate, systolic murmur - Extremities Exam Extremities exam: Present: full ROM - Back Exam Back exam: Present: normal inspection - Neurological Exam Neurological exam: Present: alert, CN II-XII intact, other (no focal changes , no posturing ) - Psychiatric Psychiatric exam: Present: agitated - Skin Skin exam: Absent: rash
--- NOTE | 2018-03-14 07:37 | Pharmacy Consult Notes ---
[facility] Pharmacy VTE Monitoring - Patient Demographics Admission date: 03/14/18 Report Date: 03/14/18 Time: 07:37 Allergies/Adverse Reactions: Patient Allergies codeine [CODEINE] Allergy (Unknown, Verified 03/13/18 21:43) Unknown allergy reaction meperidine [From DEMEROL] Allergy (Unknown, Verified 03/13/18 21:43) Unknown allergy reaction oxycodone [From PERCOCET] Allergy (Unknown, Verified 03/13/18 21:43) Unknown allergy reaction Penicillins [PENICILLINS] Allergy (Unknown, Verified 03/13/18 21:43) Unknown allergy reaction sertraline [From ZOLOFT] Allergy (Unknown, Verified 03/13/18 21:43) Unknown allergy reaction Height: 1.83 m Weight: 65.799 kg Patient Problems: Current Active Problems (This Medical Record has been edited. Action required.) Altered mental status (Acute) - VTE Risk Labs: VTE Related Lab Results Hgb 17.4 g/dL (14.1-18.0) 03/13/18 22:00 Hct 50.4 % (42.0-52.0) 03/13/18 22:00 Plt Count 324 K/mm3 (142-424) 03/13/18 22:00 BUN 16 mg/dL (7-18) 03/13/18 22:00 Creatinine 1.43 mg/dL (0.70-1.30) H 03/13/18 22:00 Estimated Creat Clear 54 mL/min (50-200) 03/13/18 22:00 VTE Score: 2 VTE Risk Level: Very Low Risk - Prophylaxis VTE Prophylaxis Ordered?: Yes Types of VTE Prophylaxis: TEDS Knee High Location of Applied Device: Bilateral Lower Extremeties - VTE Diagnosis Confirmed Treatment or plan recommended: Continue Current Treatment
--- NOTE | 2018-03-14 09:05 | History & Physical Report ---
*Admission Date: 03/14/18 <Alena Mccauley 03/14/18 09:05> *Chief complaint: Altered mental status <Alena Mccauley 03/14/18 09:05> *History of present illness: Mr. Longo is a 58-year-old male with a history of psych illness and subdural hematomas who presented to the [facility] emergency room via EMS. EMS responded to life alert call and found the patient at home throwing objects with the table turned over and broken glasses. Patient was combative and with uncontrolled behavior. No trauma was noted. Patient was unable to give history. Patient was evaluated in the emergency room. He was given a total of 10 mg of Haldol IM and 2 mg of Ativan IM. he remained agitated and combative and was thus admitted. Patient is a known frequent visitor to the emergency room with combative/ agitated behavior. With his last visit in January 2018 he had head trauma and was transferred to the [facility]. At the time of this exam patient remains very restless and agitated. He is in constant motion moving from one end of the bed to the other. He has no family or significant other present. Patient with eyes closed and is nonverbal at this time. He does not follow verbal commands. History is obtained from records. <Alena Mccauley 03/14/18 09:37> [facility] History Medical History: Reports:: Dementia, Internal Pacemaker Denies:: Cancer, Diabetes Mellitus Type 1, Diabetes Mellitus Type 2, MRSA <ParisaAlena 03/14/18 09:05> Have you ever received a pneumonia vaccine?: No (unkwn - pt sedated) <MccauleyAelna 03/14/18 09:05> Have you received a flu vaccine this season?: No (unknown - pt sedated, no record found) <Mccauley,Alena 03/14/18 09:05> Other Medical History: Reports: Other (alcoholism, bipora disorder) <Mccauley,Alena 03/14/18 09:05> Comment:: Heart disease <ParisaAlena - 03/14/18 09:37> Other Surgeries: Yes: Pacemaker <Alena Mccauley 03/14/18 09:05> Amputation: No <Alena Mccauley 03/14/18 09:05> Fractures: No <Alena Mccauley 03/14/18 09:05> - *Social History Smoking Status: Current every day smoker <Alena Mccauley 03/14/18 09:05> Tobacco Type: cigarettes <Alena Mccauley 03/14/18 09:05> Alcohol Intake: never <Alena Mccauley 03/14/18 09:05> Alcohol Intake Frequency:: a few times a month <Alena Mccauley 03/14/18 09:05> Substance Use Type: unknown <Alena Mccauley 03/14/18 09:05> Last Used Substance: unknown <Alena Mccauley 03/14/18 09:05> Occupational Status: disabled <Alena Mccauley 03/14/18 09:05> Household Members: none <Alena Mccauley 03/14/18 09:05> Travel in the last 8 weeks: None <Alena Mccauley 03/14/18 09:05> - Psychiatric History Expresses thoughts of harming self/others: None <Alena Mccauley 03/14/18 09:05> Suicide Plan Description: No Plan <Alena Mccauley 03/14/18 09:05> *Family Hx:: Unable to obtain <Alena Mccauley 03/14/18 09:05> Review of Systems - Review of Systems Review of systems:: unable to obtain <Alena Mccauley 03/14/18 09:37> Meds Home Medications Medication Instructions Recorded Confirmed Type Bisoprolol Fumarate [Zebeta 5mg 5 mg PO DAILY 09/07/17 03/13/18 History tablet] Gabapentin [Neurontin 300mg 300 mg PO TID 09/07/17 03/13/18 History capsule] Isosorbide Mononitrate [Imdur 30mg 30 mg PO DAILY 09/07/17 03/13/18 History ER tablet] Quetiapine Fumarate [Seroquel 100 mg PO DAILY 09/07/17 03/13/18 History 100mg Tablet] Baclofen [Lioresal 10mg tablet] 10 mg PO TID 03/14/18 03/14/18 History Cyclobenzaprine HCl 5 mg PO TID 03/14/18 03/14/18 History [Cyclobenzaprine 5mg Tab] <Devika Meza - 03/15/18 10:37> Allergies Allergy/AdvReac Type Severity Reaction Status Date / Time codeine [CODEINE] Allergy Unknown Unknown Verified 03/13/18 21:43 allergy reaction meperidine [From DEMEROL] Allergy Unknown Unknown Verified 03/13/18 21:43 allergy reaction oxycodone [From PERCOCET] Allergy Unknown Unknown Verified 03/13/18 21:43 allergy reaction Penicillins [PENICILLINS] Allergy Unknown Unknown Verified 03/13/18 21:43 allergy reaction sertraline [From ZOLOFT] Allergy Unknown Unknown Verified 03/13/18 21:43 allergy reaction <Devika Meza - 03/15/18 10:37> Exam Vital signs and Labs for Last 24 Hours: Temp Pulse Resp BP Pulse Ox 97.0 F L 137 H 24 157/62 H 95 03/15/18 08:00 03/15/18 08:00 03/15/18 08:00 03/15/18 08:00 03/15/18 08:00 Laboratory Results - last 24 hr 03/13/18 11:40: Urine Color Yellow, Urine Appearance Clear, Urine pH 6.0, Ur Specific [place] 1.020, Urine Protein 1+, Urine Glucose (UA) Negative, Urine Ketones Negative, Urine Blood 1+, Urine Nitrate Negative, Urine Bilirubin Negative, Urine Urobilinogen 0.2, Ur Leukocyte Esterase Negative, Urine RBC Occasional, Urine WBC 3-5, Ur Squamous Epith Cells None, Urine Bacteria Trace 03/14/18 09:00: Total Counted 100, Neutrophils % (Manual) 84 H, Lymphocytes % (Manual) 11, Monocytes % (Manual) 5, Platelet Estimate Normal, RBC Morphology Normal 03/14/18 11:40: Urine Opiates Screen Negative, Urine Methadone Screen Negative, Ur Barbituates Screen Negative, Ur Phencyclidine Scrn Negative, Ur Amphetamines Screen Negative, U Benzodiazepines Scrn Negative, Urine Cocaine Screen Negative, U Marijuana (THC) Screen Negative 03/15/18 06:18: WBC 22.7 H*, RBC 4.84, Hgb 15.2, Hct 46.4, MCV 95.8 H, MCH 31.4 H, MCHC 32.7, RDW 14.4, Plt Count 304, MPV 8.8, Neut % (Auto) 85.4 H, Lymph % (Auto) 7.7 L, [place] % (Auto) 6.2, Eos % (Auto) 0.2, Baso % (Auto) 0.5, Neut # (Auto) 19.3 H, Lymph # (Auto) 1.8, [place] # (Auto) 1.4 H, Eos # (Auto) 0.1, Baso # (Auto) 0.1, Total Counted 100, Neutrophils % (Manual) 89 H, Lymphocytes % (Manual) 6 L, Atypical Lymphs % 2.0, Monocytes % (Manual) 3, Platelet Estimate Normal, RBC Morphology Normal 03/15/18 06:18: Sodium 147 H, Potassium 4.0, Chloride 110 H, Carbon Dioxide 17 L D, Anion Gap 24.0 H, BUN 26 H D, Creatinine 1.47 H, Estimated Creat Clear 51, Estimated GFR 49 L, Est GFR ( Amer) 60, Glucose 68 L D, Calcium 9.3 <Sound,Devika - 03/15/18 10:37> Temp Pulse Resp BP Pulse Ox 97.7 F 75 16 103/65 L 96 03/14/18 04:00 03/14/18 04:00 03/14/18 04:00 03/14/18 04:00 03/14/18 04:00 Laboratory Results - last 24 hr 03/13/18 22:00: WBC 13.8 H, RBC 5.16, Hgb 17.4, Hct 50.4, MCV 97.8 H, MCH 33.7 H , MCHC 34.5, RDW 14.4, Plt Count 324, MPV 8.7, Neut % (Auto) 69.9, Lymph % (Auto) 22.7, [place] % (Auto) 5.0, Eos % (Auto) 1.5, Baso % (Auto) 0.8, Neut # (Auto) 9.6 H, Lymph # (Auto) 3.1, [place] # (Auto) 0.7, Eos # (Auto) 0.2, Baso # (Auto) 0.1 03/13/18 22:00: Sodium 142, Potassium 5.3 H, Chloride 100, Carbon Dioxide 26, Anion Gap 21.3 H, BUN 16, Creatinine 1.43 H, Estimated Creat Clear 54, Estimated GFR 51 L, Est GFR ( Amer) 61, Glucose 122 H, Calcium 10.4 H, Total Bilirubin 0.6, AST 15, ALT 22, Alkaline Phosphatase 114, Total Protein 8.7 H, Albumin 4.7, Globulin 4.0 H, Albumin/Globulin Ratio 1.2, Salicylates 8.3, Acetaminophen 0 L, Plasma/Serum Alcohol 0 <Alena Mccauley 03/14/18 09:05> I & O for Last 24 hours: Intake & Output 03/12/18 03/13/18 03/14/18 03/15/18 11:59 11:59 11:59 11:59 Intake Total 0 / 0 2416 / 2416 Output Total 1000 / 1000 Balance 0 / 0 1416 / 1416 Weight 145 lb 1 oz 153 lb 4 oz <Devika Meza 03/15/18 10:37> Intake & Output 03/11/18 03/12/18 03/13/18 03/14/18 11:59 11:59 11:59 11:59 Weight 145 lb 1 oz <Alena Mccauley 03/14/18 09:05> Radiology Reports for the Last 24 Hours: 03/13/2018 CT of the head IMPRESSION: No acute intracranial findings <Alena Mccauley 03/14/18 09:37> - Constitutional combative, agitated (Restless and in constant motion) <Alena Mccauley 03/14/18 09:37> - *Routine HEENT Exam Head: Present: normocephalic, atraumatic <ParisaAlena 03/14/18 09:37> Eye: Present: PERRL. Absent: conjunctival icterus, scleral injection <ParisaAlena 03/14/18 09:37> ENT: Present: mucous membranes moist, oropharynx clear <MccauleyAlena 03/14/18 09:37> - *Routine Neck Exam Present: supple, full ROM. Absent: lymphadenopathy, thyromegaly <MccauleyAlena 03/14/18 09:37> - Routine Chest/Breast/Axilla Exam Chest wall: Present: pacemaker <MccauleyAlena 03/14/18 09:37> Comments: Midsternal chest ecchymosis <ParisaAlena - 01/22/19 09:37> - *Routine Respiratory Exam Present: CTA bilaterally <Alena Mccauley 03/14/18 09:37> Comments: Brief periods of apnea; good air exchange <Alena Mccauley 03/14/18 09:37> - *Routine Cardiovascular Exam Present: RRR, tachycardia <Alena Mccauley 03/14/18 09:37> - *Routine Abdominal Exam Present: soft, normoactive bowel sounds. Absent: distended <Alena Mccauley 03/14/18 09:37> - *Routine Extremities Exam Absent: edema <Alena Mccauley 03/14/18 09:37> - *Routine Neurological Exam Present: moving all extremities <Alena Mccauley 03/14/18 09:37> Nonverbal; restless/combative; moves all extremities well with good strength of all extremities <Alena Mccauley 03/14/18 09:37> Assessment and Plan (1) Altered mental status Current visit: Yes Status: Acute Qualifiers: Altered mental status type: unspecified Qualified Code(s): R41.82 - Altered mental status, unspecified Category: Medical Code(s): R41.82 - Altered mental status, unspecified (2) Acute delirium Current visit: No Status: Acute Category: Medical Code(s): R41.0 - Disorientation, unspecified (3) Agitation Current visit: No Status: Acute Category: Medical Code(s): R45.1 - Restlessness and agitation (4) Bipolar 1 disorder, manic, mild Current visit: No Status: Acute Category: Medical Code(s): F31.11 - Bipolar disorder, current episode manic without psychotic features, mild (5) Poor social situation Current visit: No Status: Acute Category: Social Hx Code(s): Z65.9 - Problem related to unspecified psychosocial circumstances (6) History of subdural hematoma Current visit: Yes Status: Acute Category: Medical Code(s): Z86.79 - Personal history of other diseases of the circulatory system (7) Leukocytosis (8) Renal insufficiency <Alena Mccauley 03/14/18 09:18> (1) Altered mental status Current visit: Yes Status: Acute Qualifiers: Altered mental status type: unspecified Qualified Code(s): R41.82 - Altered mental status, unspecified Category: Medical Code(s): R41.82 - Altered mental status, unspecified (2) Acute delirium Current visit: No Status: Acute Category: Medical Code(s): R41.0 - Disorientation, unspecified (3) Agitation Current visit: No Status: Acute Category: Medical Code(s): R45.1 - Restlessness and agitation (4) Bipolar 1 disorder, manic, mild Current visit: No Status: Acute Category: Medical Code(s): F31.11 - Bipolar disorder, current episode manic without psychotic features, mild (5) Poor social situation Current visit: No Status: Acute Category: Social Hx Code(s): Z65.9 - Problem related to unspecified psychosocial circumstances (6) History of subdural hematoma Current visit: Yes Status: Acute Category: Medical Code(s): Z86.79 - Personal history of other diseases of the circulatory system (7) Leukocytosis Current visit: Yes Status: Acute Category: Medical Code(s): D72.829 - Elevated white blood cell count, unspecified (8) Renal insufficiency Current visit: Yes Status: Acute Category: Medical Code(s): N28.9 - Disorder of kidney and ureter, unspecified <Devika Meza - 03/15/18 10:37> - Assessment and plan all Dx Assessment and Plan for all problems:: agree with above. <Devika Meza - 03/15/18 10:37> Continue with restraints until patient is no longer a harm to himself or others. We will continue with Haldol and Ativan for now. Zyprexa ordered today for tomorrow. White blood cell count is slightly elevated. He has a bruise noted on his anterior chest wall. Will obtain a portable chest x-ray. <Alena Mccauley - 03/14/18 09:37>
[2018-03-14 09:15] LABS: Basophils # 0.1 K/mm3 (0-0.2); Basophils % 0.5 % (0.1-2.0); Eosinophils # 0.1 K/mm3 (0.0-0.4); Eosinophils % 0.4 % (0.1-12.0); Hematocrit 47.1 % (42.0-52.0); Hemoglobin 15.8 g/dL (14.1-18.0); Lymphocytes # 1.8 K/mm3 (0.7-4.5); Lymphocytes % 9.1 % (10-50); Mean Corpuscular HGB Conc 33.5 g/dL (31.8-35.4); Mean Corpuscular Volume 95.6 fl (80-94); Mean Platelet Volume 8.6 fl (7.4-10.4); Monocytes # 1.3 K/mm3 (0.1-1.0); Monocytes % 6.9 % (1.7-9.3); Neutrophils # 16.1 K/mm3 (1.8-7.8); Neutrophils % 83.1 % (37.0-80.0); Platelet Count 305 K/mm3 (142-424); Red Blood Count 4.93 M/mm3 (4.60-6.20); Red Cell Distribution Width 14.6 % (11.5-17.5); White Blood Count 19.4 K/mm3 (4.8-10.8)
[2018-03-14 09:20] LABS: Anion Gap 17.6 mEq/L (5-15); Calcium 9.6 mg/dL (8.5-10.1); Potassium 3.6 mmoL/L (3.5-5.1)
[2018-03-14 11:21] LABS: Lymphocytes % 11 % (10-50); Monocytes % 5 % (2-9); Neutrophils % 84 % (42-76); RBC Morphology Normal; Total Cells Counted 100
[2018-03-14 11:52] LABS: Microscopic, Urine URINE MICROSCOPIC (MICROSCOPIC)
[2018-03-14 11:58] LABS: Appearance,Urine CLEAR (Clear); Bilirubin,Urine Negative (Negative); Blood, Urine 1+ (Negative); Color,Urine YELLOW (Yellow); Glucose,Urine (UA) Negative (Negative); Ketones,Urine Negative (Negative); Leukocyte Esterase,Urine Negative (Negative); Protein,Urine 1+ (Negative); Urobilinogen,Urine 0.2 EU/dl (0.2)
[2018-03-14 12:12] LABS: Bacteria,Urine Trace /lpf; RBC,Urine Occasional #/hpf (0-3)
[2018-03-14 12:20] LABS: Amphetamine/Metha Screen,Urine Negative ng/mL (<1000); Barbiturates Screen,Urine Negative ng/mL (<200); Benzodiazepines Screen,Urine Negative ng/mL (<200); Cannabinoid Screen,Urine Negative ng/mL (<50); Cocaine Screen,Urine Negative ng/mL (<300); Methadone Screen,Urine Negative ng/mL (<300); Opiate Screen,Urine Negative ng/mL (<300); Phencyclidine Screen,Urine Negative ng/mL (<25)
--- NOTE | 2018-03-14 16:34 | Progress Note ---
<Alena Mccauley - Last Filed: 03/14/18 17:07> Internal Medicine - PN: Subj Interval history: Patient remains restless with constant motion, nonverbal, and unable to follow commands. He has been a one-to-one care throughout the day. He has received a total of 20 mg of Haldol IM and 10 mg of Ativan IM . He took 120 of water but then bit the mouth swab and half. He remains in three-point restraints to prevent harm to himself and others. He periodically lifts himself up with movement around in the bed. He does not open his eyes. He does rest for approximately 5 minutes on occasion. Heart rate has been 140 and of course he has not been able to take any of his blood pressure/heart medicines. He now has a Dunham catheter to bedside drainage and has had minimal dark urinary output. He does have a rare cough. White blood cell count is elevated. Urinalysis and chest x-ray showed no acute infection. Exam Vital signs and Labs for Last 24 Hours: Temp Pulse Resp BP Pulse Ox 97.0 F L 140 H 24 176/93 H 93 L 03/14/18 16:00 03/14/18 16:00 03/14/18 16:00 03/14/18 16:00 03/14/18 16:00 Laboratory Results - last 24 hr 03/13/18 11:40: Urine Color Yellow, Urine Appearance Clear, Urine pH 6.0, Ur Specific [place] 1.020, Urine Protein 1+, Urine Glucose (UA) Negative, Urine Ketones Negative, Urine Blood 1+, Urine Nitrate Negative, Urine Bilirubin Negative, Urine Urobilinogen 0.2, Ur Leukocyte Esterase Negative, Urine RBC Occasional, Urine WBC 3-5, Ur Squamous Epith Cells None, Urine Bacteria Trace 03/13/18 22:00: WBC 13.8 H, RBC 5.16, Hgb 17.4, Hct 50.4, MCV 97.8 H, MCH 33.7 H , MCHC 34.5, RDW 14.4, Plt Count 324, MPV 8.7, Neut % (Auto) 69.9, Lymph % (Auto) 22.7, [place] % (Auto) 5.0, Eos % (Auto) 1.5, Baso % (Auto) 0.8, Neut # (Au to) 9.6 H, Lymph # (Auto) 3.1, [place] # (Auto) 0.7, Eos # (Auto) 0.2, Baso # (Auto) 0.1 03/13/18 22:00: Sodium 142, Potassium 5.3 H, Chloride 100, Carbon Dioxide 26, Anion Gap 21.3 H, BUN 16, Creatinine 1.43 H, Estimated Creat Clear 54, Estimated GFR 51 L, Est GFR ( Amer) 61, Glucose 122 H, Calcium 10.4 H, Total Bilirubin 0.6, AST 15, ALT 22, Alkaline Phosphatase 114, Total Protein 8.7 H, Albumin 4.7, Globulin 4.0 H, Albumin/Globulin Ratio 1.2, Salicylates 8.3, Acetaminophen 0 L, Plasma/Serum Alcohol 0 03/14/18 09:00: WBC 19.4 H D, RBC 4.93, Hgb 15.8, Hct 47.1, MCV 95.6 H, MCH 32.0 H, MCHC 33.5, RDW 14.6, Plt Count 305, MPV 8.6, Neut % (Auto) 83.1 H, Lymph % (Auto) 9.1 L, [place] % (Auto) 6.9, Eos % (Auto) 0.4, Baso % (Auto) 0.5, Neut # (Auto) 16.1 H, Lymph # (Auto) 1.8, [place] # (Auto) 1.3 H, Eos # (Auto) 0.1, Baso # (Auto) 0.1, Total Counted 100, Neutrophils % (Manual) 84 H, Lymphocytes % (Manual) 11, Monocytes % (Manual) 5, Platelet Estimate Normal, RBC Morphology Normal 03/14/18 09:00: Sodium 141, Potassium 3.6 D, Chloride 105, Carbon Dioxide 22, Anion Gap 17.6 H, BUN 17, Creatinine 1.55 H, Estimated Creat Clear 48, Estimated GFR 46 L, Est GFR ( Amer) 56 L, Glucose 132 H, Calcium 9.6, Magnesium 2.0 03/14/18 11:40: Urine Opiates Screen Negative, Urine Methadone Screen Negative, Ur Barbituates Screen Negative, Ur Phencyclidine Scrn Negative, Ur Amphetamines Screen Negative, U Benzodiazepines Scrn Negative, Urine Cocaine Screen Negative, U Marijuana (THC) Screen Negative I & O for Last 24 hours: Intake & Output 03/12/18 03/13/18 03/14/18 03/15/18 11:59 11:59 11:59 11:59 Intake Total 0 / 0 240 / 240 Balance 0 / 0 240 / 240 Weight 145 lb 1 oz Radiology Reports for the Last 24 Hours: Chest x-ray 03/13/2018 IMPRESSION: No change with no acute finding. - Constitutional thin, agitated (And restless; constant motion with rare 5-minute rests) - *Routine HEENT Exam Eye: Present: PERRL - *Routine Respiratory Exam Present: CTA bilaterally - *Routine Cardiovascular Exam Present: RRR, tachycardia - *Routine Extremities Exam Present: full ROM - *Routine Neurological Exam Present: altered mental status, moving all extremities Assessment and Plan (1) Altered mental status Current visit: Yes Status: Acute Qualifiers: Altered mental status type: unspecified Qualified Code(s): R41.82 - Altered mental status, unspecified Category: Medical Code(s): R41.82 - Altered mental status, unspecified (2) Acute delirium Current visit: No Status: Acute Category: Medical Code(s): R41.0 - Disorientation, unspecified (3) Agitation Current visit: No Status: Acute Category: Medical Code(s): R45.1 - Restlessness and agitation (4) Bipolar 1 disorder, manic, mild Current visit: No Status: Acute Category: Medical Code(s): F31.11 - Bipolar disorder, current episode manic without psychotic features, mild (5) Poor social situation Current visit: No Status: Acute Category: Social Hx Code(s): Z65.9 - Problem related to unspecified psychosocial circumstances (6) History of subdural hematoma Current visit: Yes Status: Acute Category: Medical Code(s): Z86.79 - Personal history of other diseases of the circulatory system - Assessment and plan all Dx Assessment and Plan for all problems:: Care management has spoken with his worker at the adult protective agency. The worker states she saw him last week and he was cognition was normal. She stated that he was not a candidate to become a [facility] of the [facility] at this time. His friend was also contacted who saw him over the weekend and he also stated that he was in a good state of mind. He has an appointment with his family doctor to discuss the baclofen which she is on. Patient will need to be restrained until he is no longer thought to be a threat to himself or others. Patient will be started on IV fluids. He will need to be remain in restraints. 8 hours restraint assessment completed at 1700. ER physician will be asked to assess him in 8 hours. <Rodolfo Alvares - Last Filed: 03/14/18 17:18> Exam Vital signs and Labs for Last 24 Hours: Temp Pulse Resp BP Pulse Ox 97.0 F L 140 H 24 176/93 H 93 L 03/14/18 16:00 03/14/18 16:00 03/14/18 16:00 03/14/18 16:00 03/14/18 16:00 Laboratory Results - last 24 hr 03/13/18 11:40: Urine Color Yellow, Urine Appearance Clear, Urine pH 6.0, Ur Specific [place] 1.020, Urine Protein 1+, Urine Glucose (UA) Negative, Urine Ketones Negative, Urine Blood 1+, Urine Nitrate Negative, Urine Bilirubin Negative, Urine Urobilinogen 0.2, Ur Leukocyte Esterase Negative, Urine RBC Occasional, Urine WBC 3-5, Ur Squamous Epith Cells None, Urine Bacteria Trace 03/13/18 22:00: WBC 13.8 H, RBC 5.16, Hgb 17.4, Hct 50.4, MCV 97.8 H, MCH 33.7 H , MCHC 34.5, RDW 14.4, Plt Count 324, MPV 8.7, Neut % (Auto) 69.9, Lymph % (Auto) 22.7, [place] % (Auto) 5.0, Eos % (Auto) 1.5, Baso % (Auto) 0.8, Neut # (Auto) 9.6 H, Lymph # (Auto) 3.1, [place] # (Auto) 0.7, Eos # (Auto) 0.2, Baso # (Auto) 0.1 03/13/18 22:00: Sodium 142, Potassium 5.3 H, Chloride 100, Carbon Dioxide 26, Anion Gap 21.3 H, BUN 16, Creatinine 1.43 H, Estimated Creat Clear 54, Estimated GFR 51 L, Est GFR ( Amer) 61, Glucose 122 H, Calcium 10.4 H, Total Bilirubin 0.6, AST 15, ALT 22, Alkaline Phosphatase 114, Total Protein 8.7 H, Albumin 4.7, Globulin 4.0 H, Albumin/Globulin Ratio 1.2, Salicylates 8.3, Acetaminophen 0 L, Plasma/Serum Alcohol 0 03/14/18 09:00: WBC 19.4 H D, RBC 4.93, Hgb 15.8, Hct 47.1, MCV 95.6 H, MCH 32.0 H, MCHC 33.5, RDW 14.6, Plt Count 305, MPV 8.6, Neut % (Auto) 83.1 H, Lymph % (Auto) 9.1 L, [place] % (Auto) 6.9, Eos % (Auto) 0.4, Baso % (Auto) 0.5, Neut # (Auto) 16.1 H, Lymph # (Auto) 1.8, [place] # (Auto) 1.3 H, Eos # (Auto) 0.1, Baso # (Auto) 0.1, Total Counted 100, Neutrophils % (Manual) 84 H, Lymphocytes % (Man ual) 11, Monocytes % (Manual) 5, Platelet Estimate Normal, RBC Morphology Normal 03/14/18 09:00: Sodium 141, Potassium 3.6 D, Chloride 105, Carbon Dioxide 22, Anion Gap 17.6 H, BUN 17, Creatinine 1.55 H, Estimated Creat Clear 48, Estimated GFR 46 L, Est GFR ( Amer) 56 L, Glucose 132 H, Calcium 9.6, Magnesium 2.0 03/14/18 11:40: Urine Opiates Screen Negative, Urine Methadone Screen Negative, Ur Barbituates Screen Negative, Ur Phencyclidine Scrn Negative, Ur Amphetamines Screen Negative, U Benzodiazepines Scrn Negative, Urine Cocaine Screen Negative, U Marijuana (THC) Screen Negative I & O for Last 24 hours: Intake & Output 03/12/18 03/13/18 03/14/18 03/15/18 11:59 11:59 11:59 11:59 Intake Total 0 / 0 240 / 240 Balance 0 / 0 240 / 240 Weight 145 lb 1 oz Assessment and Plan (1) Altered mental status Current visit: Yes Status: Acute Qualifiers: Altered mental status type: unspecified Qualified Code(s): R41.82 - Altered mental status, unspecified Category: Medical Code(s): R41.82 - Altered mental status, unspecified (2) Acute delirium Current visit: No Status: Acute Category: Medical Code(s): R41.0 - Disorientation, unspecified (3) Agitation Current visit: No Status: Acute Category: Medical Code(s): R45.1 - Restlessness and agitation (4) Bipolar 1 disorder, manic, mild Current visit: No Status: Acute Category: Medical Code(s): F31.11 - Bipolar disorder, current episode manic without psychotic features, mild (5) Poor social situation Current visit: No Status: Acute Category: Social Hx Code(s): Z65.9 - Problem related to unspecified psychosocial circumstances (6) History of subdural hematoma Current visit: Yes Status: Acute Category: Medical Code(s): Z86.79 - Personal history of other diseases of the circulatory system - Assessment and plan all Dx Assessment and Plan for all problems:: Patient seen and assessed. He remains aggitated and combative and not following commands. Clearly needs continued restraints for his safety and safety of staff.
--- NOTE | 2018-03-15 01:19 | Progress Note ---
Internal Medicine - PN: Subj *Date: 03/15/18 *Time: 01:00 Interval history: restraint eval- pt unable to give hx and is awake and in 4 pt restraint with one- on one care and is noncommunicable when asked questions and has gibson and iv - pt vss are stable and no acute changes in physical exam - medical awake and no focal neuro changes and behav has uncontrolled movement and not responsive to questions - pt needs restraints to facilitate medical care and his safety and staff safety - pt will need to continue restraints and re-eval in 8 hrs Exam Vital signs and Labs for Last 24 Hours: Temp Pulse Resp BP Pulse Ox 97.2 F L 109 H 20 145/59 H 90 L 03/14/18 20:00 03/14/18 20:00 03/14/18 20:00 03/14/18 20:00 03/14/18 20:00 Laboratory Results - last 24 hr 03/13/18 11:40: Urine Color Yellow, Urine Appearance Clear, Urine pH 6.0, Ur Specific [place] 1.020, Urine Protein 1+, Urine Glucose (UA) Negative, Urine Ketones Negative, Urine Blood 1+, Urine Nitrate Negative, Urine Bilirubin Negative, Urine Urobilinogen 0.2, Ur Leukocyte Esterase Negative, Urine RBC Occasional, Urine WBC 3-5, Ur Squamous Epith Cells None, Urine Bacteria Trace 03/14/18 09:00: WBC 19.4 H D, RBC 4.93, Hgb 15.8, Hct 47.1, MCV 95.6 H, MCH 32.0 H, MCHC 33.5, RDW 14.6, Plt Count 305, MPV 8.6, Neut % (Auto) 83.1 H, Lymph % (Auto) 9.1 L, [place] % (Auto) 6.9, Eos % (Auto) 0.4, Baso % (Auto) 0.5, Neut # (Auto) 16.1 H, Lymph # (Auto) 1.8, [place] # (Auto) 1.3 H, Eos # (Auto) 0.1, Baso # (Auto) 0.1, Total Counted 100, Neutrophils % (Manual) 84 H, Lymphocytes % (Manual) 11, Monocytes % (Manual) 5, Platelet Estimate Normal, RBC Morphology Normal 03/14/18 09:00: Sodium 141, Potassium 3.6 D, Chloride 105, Carbon Dioxide 22, Anion Gap 17.6 H, BUN 17, Creatinine 1.55 H, Estimated Creat Clear 48, Estimated GFR 46 L, Est GFR ( Amer) 56 L, Glucose 132 H, Calcium 9.6, Magnesium 2.0 03/14/18 11:40: Urine Opiates Screen Negative, Urine Methadone Screen Negative, Ur Barbituates Screen Negative, Ur Phencyclidine Scrn Negative, Ur Amphetamines Screen Negative, U Benzodiazepines Scrn Negative, Urine Cocaine Screen Negative, U Marijuana (THC) Screen Negative I & O for Last 24 hours: Intake & Output 03/12/18 03/13/18 03/14/18 03/15/18 11:59 11:59 11:59 11:59 Intake Total 0 / 0 1126 / 1126 Output Total 600 / 600 Balance 0 / 0 526 / 526 Weight 145 lb 1 oz - Constitutional no acute distress, combative - *Routine HEENT Exam Head: Present: normocephalic Eye: Present: EOMI, PERRL ENT: Present: mucous membranes dry - *Routine Neck Exam Present: supple - *Routine Respiratory Exam Present: CTA bilaterally - *Routine Cardiovascular Exam Present: RRR - *Routine Abdominal Exam Present: soft - *Routine Extremities Exam Present: full ROM - *Routine Skin Exam Present: intact - *Routine Neurological Exam Present: altered mental status - Routine Psychiatric Exam Present: unable to assess Assessment and Plan (1) Altered mental status Current visit: Yes Status: Acute Qualifiers: Altered mental status type: unspecified Qualified Code(s): R41.82 - Altered mental status, unspecified Category: Medical Code(s): R41.82 - Altered mental status, unspecified (2) Acute delirium Current visit: No Status: Acute Category: Medical Code(s): R41.0 - Disorientation, unspecified (3) Agitation Current visit: No Status: Acute Category: Medical Code(s): R45.1 - Restlessness and agitation (4) Bipolar 1 disorder, manic, mild Current visit: No Status: Acute Category: Medical Code(s): F31.11 - Bipolar disorder, current episode manic without psychotic features, mild (5) Poor social situation Current visit: No Status: Acute Category: Social Hx Code(s): Z65.9 - Problem related to unspecified psychosocial circumstances (6) History of subdural hematoma Current visit: Yes Status: Acute Category: Medical Code(s): Z86.79 - Personal history of other diseases of the circulatory system
[2018-03-15 06:57] LABS: Basophils # 0.1 K/mm3 (0-0.2); Basophils % 0.5 % (0.1-2.0); Eosinophils # 0.1 K/mm3 (0.0-0.4); Eosinophils % 0.2 % (0.1-12.0); Hematocrit 46.4 % (42.0-52.0); Hemoglobin 15.2 g/dL (14.1-18.0); Lymphocytes # 1.8 K/mm3 (0.7-4.5); Lymphocytes % 7.7 % (10-50); Mean Corpuscular HGB Conc 32.7 g/dL (31.8-35.4); Mean Corpuscular Hemoglobin 31.4 pg (27.0-31.2); Mean Corpuscular Volume 95.8 fl (80-94); Mean Platelet Volume 8.8 fl (7.4-10.4); Monocytes # 1.4 K/mm3 (0.1-1.0); Monocytes % 6.2 % (1.7-9.3); Neutrophils # 19.3 K/mm3 (1.8-7.8); Neutrophils % 85.4 % (37.0-80.0); Platelet Count 304 K/mm3 (142-424); Red Blood Count 4.84 M/mm3 (4.60-6.20); Red Cell Distribution Width 14.4 % (11.5-17.5); White Blood Count 22.7 K/mm3 (4.8-10.8)
[2018-03-15 07:06] LABS: Calcium 9.3 mg/dL (8.5-10.1)
--- NOTE | 2018-03-15 08:22 | Progress Note ---
<Alena Mccauley - Last Filed: 03/15/18 09:38> Internal Medicine - PN: Subj Interval history: Patient remains nonverbal. He does not respond to any type communication. Per nursing patient has remained restless/agitated throughout the night. As mostly remain closed. He has remained in four-point restraints. They have maintaining IV with fluids at [address] Worrell accepts the patient at 12 midnight for restraint protocol. He will take fluids and swallows without difficulty. Blood cell count has increased to 22.7. He has had no fever. Kidney function show BUN of 26 and creatinine of 1.47. He continues to have a Dunham catheter with an adequate urinary output. Blood pressure and heart rate remain elevated. During the night and thus far this a.m. he has received 50 mg of ketamine IV, 2 mg of Ativan, 50 mg of Haldol. Exam Vital signs and Labs for Last 24 Hours: Temp Pulse Resp BP Pulse Ox 97.9 F 124 H 18 157/66 H 100 03/15/18 04:00 03/15/18 04:00 03/15/18 04:00 03/15/18 04:00 03/15/18 04:00 Laboratory Results - last 24 hr 03/13/18 11:40: Urine Color Yellow, Urine Appearance Clear, Urine pH 6.0, Ur Specific [place] 1.020, Urine Protein 1+, Urine Glucose (UA) Negative, Urine Ketones Negative, Urine Blood 1+, Urine Nitrate Negative, Urine Bilirubin Negative, Urine Urobilinogen 0.2, Ur Leukocyte Esterase Negative, Urine RBC Occasional, Urine WBC 3-5, Ur Squamous Epith Cells None, Urine Bacteria Trace 03/14/18 09:00: WBC 19.4 H D, RBC 4.93, Hgb 15.8, Hct 47.1, MCV 95.6 H, MCH 32.0 H, MCHC 33.5, RDW 14.6, Plt Count 305, MPV 8.6, Neut % (Auto) 83.1 H, Lymph % (Auto) 9.1 L, [place] % (Auto) 6.9, Eos % (Auto) 0.4, Baso % (Auto) 0.5, Neut # (Auto) 16.1 H, Lymph # (Auto) 1.8, [place] # (Auto) 1.3 H, Eos # (Auto) 0.1, Baso # (Auto) 0.1, Total Counted 100, Neutrophils % (Manual) 84 H, Lymphocytes % (Man ual) 11, Monocytes % (Manual) 5, Platelet Estimate Normal, RBC Morphology Normal 03/14/18 09:00: Sodium 141, Potassium 3.6 D, Chloride 105, Carbon Dioxide 22, Anion Gap 17.6 H, BUN 17, Creatinine 1.55 H, Estimated Creat Clear 48, Estimated GFR 46 L, Est GFR ( Amer) 56 L, Glucose 132 H, Calcium 9.6, Magnesium 2.0 03/14/18 11:40: Urine Opiates Screen Negative, Urine Methadone Screen Negative, Ur Barbituates Screen Negative, Ur Phencyclidine Scrn Negative, Ur Amphetamines Screen Negative, U Benzodiazepines Scrn Negative, Urine Cocaine Screen Negative, U Marijuana (THC) Screen Negative 03/15/18 06:18: WBC 22.7 H*, RBC 4.84, Hgb 15.2, Hct 46.4, MCV 95.8 H, MCH 31.4 H, MCHC 32.7, RDW 14.4, Plt Count 304, MPV 8.8, Neut % (Auto) 85.4 H, Lymph % (Auto) 7.7 L, [place] % (Auto) 6.2, Eos % (Auto) 0.2, Baso % (Auto) 0.5, Neut # (Auto) 19.3 H, Lymph # (Auto) 1.8, [place] # (Auto) 1.4 H, Eos # (Auto) 0.1, Baso # (Auto) 0.1 03/15/18 06:18: Sodium 147 H, Potassium 4.0, Chloride 110 H, Carbon Dioxide 17 L D, Anion Gap 24.0 H, BUN 26 H D, Creatinine 1.47 H, Estimated Creat Clear 51, Estimated GFR 49 L, Est GFR ( Amer) 60, Glucose 68 L D, Calcium 9.3 I & O for Last 24 hours: Intake & Output 03/12/18 03/13/18 03/14/18 03/15/18 11:59 11:59 11:59 11:59 Intake Total 0 / 0 2176 / 2176 Output Total 1000 / 1000 Balance 0 / 0 1176 / 1176 Weight 145 lb 1 oz 153 lb 4 oz - Constitutional agitated (And restless. Cannot follow directions.) - *Routine Respiratory Exam Present: CTA bilaterally (Anteriorly and posteriorly) - *Routine Cardiovascular Exam Present: RRR, tachycardia (Heart rate 120-140) - *Routine Abdominal Exam Present: soft, normoactive bowel sounds. Absent: tenderness - *Routine Extremities Exam Comments: Almost constant motion. No edema - *Routine Neurological Exam Nonverbal; pupils equal and reactive to light. Assessment and Plan (1) Altered mental status Current visit: Yes Status: Acute Qualifiers: Altered mental status type: unspecified Qualified Code(s): R41.82 - Altered mental status, unspecified Category: Medical Code(s): R41.82 - Altered mental status, unspecified (2) Acute delirium Current visit: No Status: Acute Category: Medical Code(s): R41.0 - Disorientation, unspecified (3) Agitation Current visit: No Status: Acute Category: Medical Code(s): R45.1 - Restlessness and agitation (4) Bipolar 1 disorder, manic, mild Current visit: No Status: Acute Category: Medical Code(s): F31.11 - Bipolar disorder, current episode manic without psychotic features, mild (5) Poor social situation Current visit: No Status: Acute Category: Social Hx Code(s): Z65.9 - Problem related to unspecified psychosocial circumstances (6) History of subdural hematoma Current visit: Yes Status: Acute Category: Medical Code(s): Z86.79 - Personal history of other diseases of the circulatory system (7) Leukocytosis Current visit: Yes Status: Acute Category: Medical Code(s): D72.829 - Elevated white blood cell count, unspecified (8) Renal insufficiency Current visit: Yes Status: Acute Category: Medical Code(s): N28.9 - Disorder of kidney and ureter, unspecified - Assessment and plan all Dx Assessment and Plan for all problems:: discussed with Dr. Meza; pt will be started on an Ativan gtt. and receive Zyprexa when it arrives this AM. Pt will need to remain in restraints for his own safety. Nursing will continue with care as per restraint policies/procedures <Devika Meza - Last Filed: 03/15/18 11:31> Internal Medicine - PN: Subj *Date: 03/15/18 *Time: 08:45 Exam Vital signs and Labs for Last 24 Hours: Temp Pulse Resp BP Pulse Ox 97.0 F L 137 H 24 157/62 H 95 03/15/18 08:00 03/15/18 08:00 03/15/18 08:00 03/15/18 08:00 03/15/18 08:00 Laboratory Results - last 24 hr 03/13/18 11:40: Urine Color Yellow, Urine Appearance Clear, Urine pH 6.0, Ur Specific [place] 1.020, Urine Protein 1+, Urine Glucose (UA) Negative, Urine Ketones Negative, Urine Blood 1+, Urine Nitrate Negative, Urine Bilirubin Negative, Urine Urobilinogen 0.2, Ur Leukocyte Esterase Negative, Urine RBC Occasional, Urine WBC 3-5, Ur Squamous Epith Cells None, Urine Bacteria Trace 03/14/18 11:40: Urine Opiates Screen Negative, Urine Methadone Screen Negative, Ur Barbituates Screen Negative, Ur Phencyclidine Scrn Negative, Ur Amphetamines Screen Negative, U Benzodiazepines Scrn Negative, Urine Cocaine Screen Negative, U Marijuana (THC) Screen Negative 03/15/18 06:18: WBC 22.7 H*, RBC 4.84, Hgb 15.2, Hct 46.4, MCV 95.8 H, MCH 31.4 H, MCHC 32.7, RDW 14.4, Plt Count 304, MPV 8.8, Neut % (Auto) 85.4 H, Lymph % (Auto) 7.7 L, [place] % (Auto) 6.2, Eos % (Auto) 0.2, Baso % (Auto) 0.5, Neut # (Auto) 19.3 H, Lymph # (Auto) 1.8, [place] # (Auto) 1.4 H, Eos # (Auto) 0.1, Baso # (Auto) 0.1, Total Counted 100, Neutrophils % (Manual) 89 H, Lymphocytes % (Manual) 6 L, Atypical Lymphs % 2.0, Monocytes % (Manual) 3, Platelet Estimate Normal, RBC Morphology Normal 03/15/18 06:18: Sodium 147 H, Potassium 4.0, Chloride 110 H, Carbon Dioxide 17 L D, Anion Gap 24.0 H, BUN 26 H D, Creatinine 1.47 H, Estimated Creat Clear 51, Estimated GFR 49 L, Est GFR ( Amer) 60, Glucose 68 L D, Calcium 9.3 I & O for Last 24 hours: Intake & Output 03/12/18 03/13/18 03/14/18 03/15/18 11:59 11:59 11:59 11:59 Intake Total 0 / 0 2416 / 2416 Output Total 1000 / 1000 Balance 0 / 0 1416 / 1416 Weight 145 lb 1 oz 153 lb 4 oz Assessment and Plan (1) Altered mental status Current visit: Yes Status: Acute Qualifiers: Altered mental status type: unspecified Qualified Code(s): R41.82 - Altered mental status, unspecified Category: Medical Code(s): R41.82 - Altered mental status, unspecified (2) Acute delirium Current visit: No Status: Acute Category: Medical Code(s): R41.0 - Disorientation, unspecified (3) Agitation Current visit: No Status: Acute Category: Medical Code(s): R45.1 - Restlessness and agitation (4) Bipolar 1 disorder, manic, mild Current visit: No Status: Acute Category: Medical Code(s): F31.11 - Bipolar disorder, current episode manic without psychotic features, mild (5) Poor social situation Current visit: No Status: Acute Category: Social Hx Code(s): Z65.9 - Problem related to unspecified psychosocial circumstances (6) History of subdural hematoma Current visit: Yes Status: Acute Category: Medical Code(s): Z86.79 - Personal history of other diseases of the circulatory system (7) Leukocytosis Current visit: Yes Status: Acute Category: Medical Code(s): D72.829 - Elevated white blood cell count, unspecified (8) Renal insufficiency Current visit: Yes Status: Acute Category: Medical Code(s): N28.9 - Disorder of kidney and ureter, unspecified - Assessment and plan all Dx Assessment and Plan for all problems:: agree with above, secondary to not having ativan drip protocol here, will give scheduled ativan at this time as patient is going thru possible delirum tremens and withdrawal synthetic marijuana. will hold haldol for now and continue zyprexa. patient to remain on restraints.
[2018-03-15 09:22] LABS: Lymphocytes % 6 % (10-50); Monocytes % 3 % (2-9); Neutrophils % 89 % (42-76); RBC Morphology Normal; Total Cells Counted 100
--- NOTE | 2018-03-15 20:45 | Progress Note ---
Internal Medicine - PN: Subj *Date: 03/15/18 *Time: 20:00 Interval history: Nursing requested assessment since the patient was in restraints. He is actively calm at the present time. He does have his unpurposeful movements when hit the restraints were released. He has no respiratory distress. He only vaguely responds to his name being called. He scores 8 on the Cornelius Coma Scale. His rate is regular, his lungs are clear, his abdomen is soft. No edema. Exam Vital signs and Labs for Last 24 Hours: Temp Pulse Resp BP Pulse Ox 100.4 F H 108 H 17 121/70 96 03/15/18 20:00 03/15/18 20:00 03/15/18 20:00 03/15/18 20:00 03/15/18 20:00 Laboratory Results - last 24 hr 03/15/18 06:18: WBC 22.7 H*, RBC 4.84, Hgb 15.2, Hct 46.4, MCV 95.8 H, MCH 31.4 H, MCHC 32.7, RDW 14.4, Plt Count 304, MPV 8.8, Neut % (Auto) 85.4 H, Lymph % (Auto) 7.7 L, [place] % (Auto) 6.2, Eos % (Auto) 0.2, Baso % (Auto) 0.5, Neut # (Auto) 19.3 H, Lymph # (Auto) 1.8, [place] # (Auto) 1.4 H, Eos # (Auto) 0.1, Baso # (Auto) 0.1, Total Counted 100, Neutrophils % (Manual) 89 H, Lymphocytes % (Manual) 6 L, Atypical Lymphs % 2.0, Monocytes % (Manual) 3, Platelet Estimate Normal, RBC Morphology Normal 03/15/18 06:18: Sodium 147 H, Potassium 4.0, Chloride 110 H, Carbon Dioxide 17 L D, Anion Gap 24.0 H, BUN 26 H D, Creatinine 1.47 H, Estimated Creat Clear 51, Estimated GFR 49 L, Est GFR ( Amer) 60, Glucose 68 L D, Calcium 9.3 I & O for Last 24 hours: Intake & Output 03/13/18 03/14/18 03/15/18 03/16/18 11:59 11:59 11:59 11:59 Intake Total 0 / 0 2416 / 2416 2553 / 2553 Output Total 1000 / 1000 Balance 0 / 0 1416 / 1416 2553 / 2553 Weight 145 lb 1 oz 153 lb 4 oz - Constitutional obtunded - *Routine Respiratory Exam Present: CTA bilaterally. Absent: respiratory distress - *Routine Cardiovascular Exam Present: RRR - *Routine Abdominal Exam Present: soft. Absent: tenderness - *Routine Extremities Exam Absent: edema - *Routine Neurological Exam Obtunded. He moves his arms and legs without purpose. Tries to open his eyes when his name is called. Assessment and Plan (1) Altered mental status Current visit: Yes Status: Acute Qualifiers: Altered mental status type: unspecified Qualified Code(s): R41.82 - Altered mental status, unspecified Category: Medical Code(s): R41.82 - Altered mental status, unspecified (2) Acute delirium Current visit: No Status: Acute Category: Medical Code(s): R41.0 - Disorientation, unspecified (3) Agitation Current visit: No Status: Acute Category: Medical Code(s): R45.1 - Restlessness and agitation (4) Bipolar 1 disorder, manic, mild Current visit: No Status: Acute Category: Medical Code(s): F31.11 - Bipolar disorder, current episode manic without psychotic features, mild (5) Poor social situation Current visit: No Status: Acute Category: Social Hx Code(s): Z65.9 - Problem related to unspecified psychosocial circumstances (6) History of subdural hematoma Current visit: Yes Status: Acute Category: Medical Code(s): Z86.79 - Perso nal history of other diseases of the circulatory system (7) Leukocytosis Current visit: Yes Status: Acute Category: Medical Code(s): D72.829 - Elevated white blood cell count, unspecified (8) Renal insufficiency Current visit: Yes Status: Acute Category: Medical Code(s): N28.9 - Disorder of kidney and ureter, unspecified - Assessment and plan all Dx Assessment and Plan for all problems:: Medicine list is reviewed. He has been loaded with phenytoin, which I think is a good idea. Around midnight he should be started on a maintenance dose: 100mg IV every 6 hours. Blood cultures are ordered due to elevated white count.
--- NOTE | 2018-03-16 08:33 | Progress Note ---
<Nathaly Clemente - Last Filed: 03/16/18 08:30> Internal Medicine - PN: Subj *Date: 03/16/18 *Time: 08:30 Interval history: Patient is out of four-point restraints. Nursing staff says that he does follow some simple commands and is able to eat this morning. Dr. Alexandra did order a maintenance dose of phenytoin last night. Exam Vital signs and Labs for Last 24 Hours: Temp Pulse Resp BP Pulse Ox 97.8 F 111 H 20 119/86 100 03/16/18 08:00 03/16/18 08:00 03/16/18 08:00 03/16/18 08:00 03/16/18 08:00 Laboratory Results - last 24 hr 03/15/18 06:18: Total Counted 100, Neutrophils % (Manual) 89 H, Lymphocytes % (Manual) 6 L, Atypical Lymphs % 2.0, Monocytes % (Manual) 3, Platelet Estimate Normal, RBC Morphology Normal I & O for Last 24 hours: Intake & Output 03/13/18 03/14/18 03/15/18 03/16/18 11:59 11:59 11:59 11:59 Intake Total 0 / 0 2416 / 2416 5157 / 5157 Output Total 1000 / 1000 1650 / 1650 Balance 0 / 0 1416 / 1416 3507 / 3507 Weight 145 lb 1 oz 153 lb 4 oz - Constitutional no acute distress (Does not speak today) - *Routine Respiratory Exam Present: CTA bilaterally - *Routine Cardiovascular Exam Present: RRR - *Routine Abdominal Exam Present: soft, normoactive bowel sounds. Absent: tenderness - *Routine Extremities Exam Absent: cyanosis, clubbing, edema - *Routine Neurological Exam Does follow commands and is trying to eat Assessment and Plan (1) Altered mental status Current visit: Yes Status: Acute Qualifiers: Altered mental status type: unspecified Qualified Code(s): R41.82 - Altered mental status, unspecified Category: Medical Code(s): R41.82 - Altered mental status, unspecified (2) Acute delirium Current visit: No Status: Acute Category: Medical Code(s): R41.0 - Disorientation, unspecified (3) Agitation Current visit: No Status: Acute Category: Medical Code(s): R45.1 - Restlessness and agitation (4) Bipolar 1 disorder, manic, mild Current visit: No Status: Acute Category: Medical Code(s): F31.11 - Bipolar disorder, current episode manic without psychotic features, mild (5) Poor social situation Current visit: No Status: Acute Category: Social Hx Code(s): Z65.9 - Problem related to unspecified psychosocial circumstances (6) History of subdural hematoma Current visit: Yes Status: Acute Category: Medical Code(s): Z86.79 - Personal history of other diseases of the circulatory system (7) Leukocytosis Current visit: Yes Status: Acute Category: Medical Code(s): D72.829 - Elevated white blood cell count, unspecified (8) Renal insufficiency Current visit: Yes Status: Acute Category: Medical Code(s): N28.9 - Disorder of kidney and ureter, unspecified - Assessment and plan all Dx Assessment and Plan for all problems:: Blood cell count was elevated yesterday. Blood cultures are still pending. Will repeat labs this morning. Will discuss further care with Dr. solares. <Devika Solares - Last Filed: 03/16/18 09:05> Exam Vital signs and Labs for Last 24 Hours: Temp Pulse Resp BP Pulse Ox 97.8 F 111 H 20 119/86 100 03/16/18 08:00 03/16/18 08:00 03/16/18 08:00 03/16/18 08:00 03/16/18 08:00 Laboratory Results - last 24 hr 03/15/18 06:18: Total Counted 100, Neutrophils % (Manual) 89 H, Lymphocytes % (Manual) 6 L, Atypical Lymphs % 2.0, Monocytes % (Manual) 3, Platelet Estimate Normal, RBC Morphology Normal I & O for Last 24 hours: Intake & Output 03/13/18 03/14/18 03/15/18 03/16/18 11:59 11:59 11:59 11:59 Intake Total 0 / 0 2416 / 2416 5157 / 5157 Output Total 1000 / 1000 1650 / 1650 Balance 0 / 0 1416 / 1416 3507 / 3507 Weight 145 lb 1 oz 153 lb 4 oz Assessment and Plan (1) Altered mental status Current visit: Yes Status: Acute Qualifiers: Altered mental status type: unspecified Qualified Code(s): R41.82 - Altered mental status, unspecified Category: Medical Code(s): R41.82 - Altered mental status, unspecified (2) Acute delirium Current visit: No Status: Acute Category: Medical Code(s): R41.0 - Disorientation, unspecified (3) Agitation Current visit: No Status: Acute Category: Medical Code(s): R45.1 - Restlessness and agitation (4) Bipolar 1 disorder, manic, mild Current visit: No Status: Acute Category: Medical Code(s): F31.11 - Bipolar disorder, current episode manic without psychotic features, mild (5) Poor social situation Current visit: No Status: Acute Category: Social Hx Code(s): Z65.9 - Probl em related to unspecified psychosocial circumstances (6) History of subdural hematoma Current visit: Yes Status: Acute Category: Medical Code(s): Z86.79 - Personal history of other diseases of the circulatory system (7) Leukocytosis Current visit: Yes Status: Acute Category: Medical Code(s): D72.829 - Elevated white blood cell count, unspecified (8) Renal insufficiency Current visit: Yes Status: Acute Category: Medical Code(s): N28.9 - Disorder of kidney and ureter, unspecified - Assessment and plan all Dx Assessment and Plan for all problems:: Agree with above with my following assessment and plan Patient was responsive to his name and is able to follow simple commands. He does open his eyes to speech. He is however confused and is not able to tell me where he is. His GCS this am is 13 and is he out of four point restraints at this time. He got zyprexa and I believe that this had helped him a lot. So I will continue this scheduled for now. D/C ativan. Will keep him on haldol prn. Hold phenytoin and reassess this afternoon the need to restart this. 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 We will also get another CBC today to assess the elevated WBC s this could be part of delirium or stress response. We did try to transfer him to yesterday and they declined transfer as they requested him to provide informed consent for transfer. However, I do not believe patient is in the right state of mind at this time to provide any informed consent at this time. We will continue to provide care here and if clinically necessary, we will apply for petition to [facility] as that would be the next step if patient fails to continue to improve.
[2018-03-16 09:53] LABS: Basophils # 0.1 K/mm3 (0-0.2); Basophils % 0.8 % (0.1-2.0); Eosinophils # 0.2 K/mm3 (0.0-0.4); Eosinophils % 1.5 % (0.1-12.0); Hematocrit 44.4 % (42.0-52.0); Hemoglobin 14.5 g/dL (14.1-18.0); Lymphocytes # 2.2 K/mm3 (0.7-4.5); Lymphocytes % 16.4 % (10-50); Mean Corpuscular HGB Conc 32.7 g/dL (31.8-35.4); Mean Corpuscular Hemoglobin 31.4 pg (27.0-31.2); Mean Platelet Volume 9.5 fl (7.4-10.4); Monocytes # 0.9 K/mm3 (0.1-1.0); Neutrophils # 9.8 K/mm3 (1.8-7.8); Neutrophils % 74.3 % (37.0-80.0); Platelet Count 250 K/mm3 (142-424); Red Blood Count 4.62 M/mm3 (4.60-6.20); Red Cell Distribution Width 14.3 % (11.5-17.5); White Blood Count 13.2 K/mm3 (4.8-10.8)
[2018-03-16 10:16] LABS: Albumin Level 3.4 gm/dL (3.4-5.0); Anion Gap 15.8 mEq/L (5-15); Bilirubin,Total 0.9 mg/dL (0.2-1.0); Calcium 8.9 mg/dL (8.5-10.1); Globulin 3.4 gm/dl (1.3-3.2); Potassium 3.8 mmoL/L (3.5-5.1); Total Protein,Serum 6.8 gm/dL (6.4-8.2)
--- NOTE | 2018-03-17 08:29 | Progress Note ---
<Nathaly Clemente - Last Filed: 03/17/18 08:27> Internal Medicine - PN: Subj *Date: 03/17/18 *Time: 08:27 Interval history: The patient is actually awake and coherent this morning. He is able to answer questions. He states he sees a physician in [place] and the only medications that he takes are for his heart. He states he is smoker but he denies any drug use. He states he only has alcohol on special occasions. He is still unsure exactly what happened before admission to the hospital. He denies any pain today other than a headache. Exam Vital signs and Labs for Last 24 Hours: Temp Pulse Resp BP Pulse Ox 97.8 F 101 H 18 118/80 95 03/17/18 07:29 03/17/18 07:29 03/17/18 07:29 03/17/18 07:29 03/17/18 07:29 Laboratory Results - last 24 hr 03/16/18 08:54: WBC 13.2 H D, RBC 4.62, Hgb 14.5, Hct 44.4, MCV 96.0 H, MCH 31.4 H, MCHC 32.7, RDW 14.3, Plt Count 250, MPV 9.5, Neut % (Auto) 74.3, Lymph % (Auto) 16.4, [place] % (Auto) 7.0, Eos % (Auto) 1.5, Baso % (Auto) 0.8, Neut # (Auto) 9.8 H, Lymph # (Auto) 2.2, [place] # (Auto) 0.9, Eos # (Auto) 0.2, Baso # (Auto) 0.1 03/16/18 08:54: Sodium 142, Potassium 3.8, Chloride 109 H, Carbon Dioxide 21 D, Anion Gap 15.8 H, BUN 23 H, Creatinine 1.15 D, Estimated Creat Clear 69, Estimated GFR 65, Est GFR ( Amer) 79 D, Glucose 140 H, Calcium 8.9, Total Bilirubin 0.9, AST 324 H* D, ALT 75 D, Alkaline Phosphatase 88, Total Protein 6.8, Albumin 3.4, Globulin 3.4 H, Albumin/Globulin Ratio 1.0 L 03/16/18 08:54: Plasma/Serum Alcohol < 3 I & O for Last 24 hours: Intake & Output 03/14/18 03/15/18 03/16/18 03/17/18 11:59 11:59 11:59 11:59 Intake Total 0 / 0 2416 / 2416 5157 / 5157 3127 / 3127 Output Total 1000 / 1000 1650 / 1650 1800 / 1800 Balance 0 / 0 1416 / 1416 3507 / 3507 1327 / 1327 Weight 145 lb 1 oz 153 lb 4 oz 153 lb 6 oz - Constitutional no acute distress - *Routine Respiratory Exam Present: wheezes. Absent: rales - *Routine Cardiovascular Exam Present: RRR - *Routine Abdominal Exam Present: soft, normoactive bowel sounds. Absent: tenderness - *Routine Extremities Exam Absent: cyanosis, clubbing, edema Assessment and Plan (1) Altered mental status Current visit: Yes Status: Acute Qualifiers: Altered mental status type: unspecified Qualified Code(s): R41.82 - Altered mental status, unspecified Category: Medical Code(s): R41.82 - Altered mental status, unspecified (2) Acute delirium Current visit: No Status: Acute Category: Medical Code(s): R41.0 - Disorientation, unspecified (3) Agitation Current visit: No Status: Acute Category: Medical Code(s): R45.1 - Restlessness and agitation (4) Bipolar 1 disorder, manic, mild Current visit: No Status: Acute Category: Medical Code(s): F31.11 - Bipolar disorder, current episode manic without psychotic features, mild (5) Poor social situation Current visit: No Status: Acute Category: Social Hx Code(s): Z65.9 - Problem related to unspecified psychosocial circumstances (6) History of subdural hematoma Current visit: Yes Status: Acute Category: Medical Code(s): Z86.79 - Personal history of other diseases of the circulatory system (7) Leukocytosis Current visit: Yes Status: Acute Category: Medical Code(s): D72.829 - Elevated white blood cell count, unspecified (8) Renal insufficiency Current visit: Yes Status: Acute Category: Medical Code(s): N28.9 - Disorder of kidney and ureter, unspecified - Assessment and plan all Dx Assessment and Plan for all problems:: Patient's mental status is much improved. Will discuss further care with Dr. solares. <Devika Solares - Last Filed: 03/17/18 09:57> Exam Vital signs and Labs for Last 24 Hours: Temp Pulse Resp BP Pulse Ox 97.8 F 116 H 20 118/80 97 03/17/18 07:29 03/17/18 08:00 03/17/18 08:00 03/17/18 07:29 03/17/18 08:00 Laboratory Results - last 24 hr 03/16/18 08:54: WBC 13.2 H D, RBC 4.62, Hgb 14.5, Hct 44.4, MCV 96.0 H, MCH 31.4 H, MCHC 32.7, RDW 14.3, Plt Count 250, MPV 9.5, Neut % (Auto) 74.3, Lymph % (Auto) 16.4, [place] % (Auto) 7.0, Eos % (Auto) 1.5, Baso % (Auto) 0.8, Neut # (Auto) 9.8 H, Lymph # (Auto) 2.2, [place] # (Auto) 0.9, Eos # (Auto) 0.2, Baso # (Auto) 0.1 03/16/18 08:54: Sodium 142, Potassium 3.8, Chloride 109 H, Carbon Dioxide 21 D, Anion Gap 15.8 H, BUN 23 H, Creatinine 1.15 D, Estimated Creat Clear 69, Estimated GFR 65, Est GFR ( Amer) 79 D, Glucose 140 H, Calcium 8.9, Total Bilirubin 0.9, AST 324 H* D, ALT 75 D, Alkaline Phosphatase 88, Total Protein 6.8, Albumin 3.4, Globulin 3.4 H, Albumin/Globulin Ratio 1.0 L 03/16/18 08:54: Plasma/Serum Alcohol < 3 I & O for Last 24 hours: Intake & Output 03/14/18 03/15/18 03/16/18 03/17/18 11:59 11:59 11:59 11:59 Intake Total 0 / 0 2416 / 2416 5157 / 5157 3127 / 3127 Output Total 1000 / 1000 1650 / 1650 1800 / 1800 Balance 0 / 0 1416 / 1416 3507 / 3507 1327 / 1327 Weight 145 lb 1 oz 153 lb 4 oz 153 lb 6 oz Assessment and Plan (1) Altered mental status Current visit: Yes Status: Acute Qualifiers: Altered mental status type: unspecified Qualified Code(s): R41.82 - Altered mental status, unspecified Category: Medical Code(s): R41.82 - Altered mental status, unspecified (2) Acute delirium Current visit: No Status: Acute Category: Medical Code(s): R41.0 - Disorientation, unspecified (3) Agitation Current visit: No Status: Acute Category: Medical Code(s): R45.1 - Restlessness and agitation (4) Bipolar 1 disorder, manic, mild Current visit: No Status: Acute Category: Medical Code(s): F31.11 - Bipolar disorder, current episode manic without psychotic features, mild (5) Poor social situation Current visit: No Status: Acute Category: Social Hx Code(s): Z65.9 - Problem related to unspecified psychosocial circumstances (6) History of subdural hematoma Current visit: Yes Status: Acute Category: Medical Code(s): Z86.79 - Personal history of other diseases of the circulatory system (7) Leukocytosis Current visit: Yes Status: Acute Category: Medical Code(s): D72.829 - Elevated white blood cell count, unspecified (8) Renal insufficiency Current visit: Yes Status: Acute Category: Medical Code(s): N28.9 - Disorder of kidney and ureter, unspecified - Assessment and plan all Dx Assessment and Plan for all problems:: Agree with above; Patient mentioned that he felt some chest pain prior to his admission and was having spams on his right hand. So he took 3-4 baclofen to stop his spasm. He also mentioned that he was an alcoholic and drug abuser. He is coherent today and was able to tell me what happened and expressed his wishes of wanted to go to a home to get therapy and monthly injections. Will work with case management for placement and approval of his monthly zyprexa given his non- compliance and high risk for overdose behavior.
[2018-03-17 08:30] LABS: Hepatitis B Core Antibody IgM Negative (Negative); Hepatitis B Surface Antigen Negative (Negative)
[2018-03-17 17:15] LABS: Hepatitis C Antibody 0.3 s/co ratio (0.0-0.9)
--- NOTE | 2018-03-18 10:56 | Progress Note ---
Internal Medicine - PN: Subj *Date: 03/18/18 *Time: 08:40 Interval history: Patient doing better today and was able to communicate with me today. Voiced understanding that he needs a good placement. Exam Vital signs and Labs for Last 24 Hours: Temp Pulse Resp BP Pulse Ox 99.1 F 97 H 18 112/64 100 03/18/18 08:00 03/18/18 08:00 03/18/18 08:00 03/18/18 08:00 03/18/18 08:00 Laboratory Results - last 24 hr 03/16/18 11:20: Hepatitis A IgM Ab Negative, Hep Bs Antigen Negative, Hep B Core IgM Ab Negative, Hepatitis C Antibody 0.3 I & O for Last 24 hours: Intake & Output 03/15/18 03/16/18 03/17/18 03/18/18 11:59 11:59 11:59 11:59 Intake Total 2416 / 2416 5157 / 5157 3127 / 3127 720 / 720 Output Total 1000 / 1000 1650 / 1650 1800 / 1800 1500 / 1500 Balance 1416 / 1416 3507 / 3507 1327 / 1327 -780 / -780 Weight 153 lb 4 oz 153 lb 6 oz 149 lb 8 oz Microbiology Reports for the Last 24 Hours: Microbiology 03/15/18 19:13 Blood Blood Culture - Preliminary NO GROWTH AFTER 48 HOURS 03/15/18 19:13 Blood Blood Culture - Preliminary NO GROWTH AFTER 48 HOURS - *Routine HEENT Exam Head: Present: normocephalic Eye: Present: EOMI ENT: Present: mucous membranes moist - *Routine Neck Exam Present: supple, full ROM - *Routine Respiratory Exam Present: CTA bilaterally. Absent: accessory muscle use - *Routine Cardiovascular Exam Present: RRR - *Routine Abdominal Exam Present: soft, normoactive bowel sounds - *Routine Extremities Exam Absent: edema - *Routine Skin Exam Present: intact - *Routine Neurological Exam Present: alert, oriented X3 - Routine Psychiatric Exam Present: normal affect, normal thought process. Absent: suicidal ideation Assessment and Plan (1) Schizophrenia Current visit: Yes Status: Acute Category: Medical Code(s): F20.9 - Schizophrenia, unspecified (2) Altered mental status Current visit: Yes Status: Resolved Qualifiers: Altered mental status type: unspecified Qualified Code(s): R41.82 - Altered mental status, unspecified Category: Medical Code(s): R41.82 - Altered mental status, unspecified (3) Acute delirium Current visit: No Status: Acute Category: Medical Code(s): R41.0 - Disorientation, unspecified (4) Agitation Current visit: No Status: Acute Category: Medical Code(s): R45.1 - Restlessness and agitation (5) Poor social situation Current visit: No Status: Acute Category: Social Hx Code(s): Z65.9 - Problem related to unspecified psychosocial circumstances (6) History of subdural hematoma Current visit: Yes Status: Acute Category: Medical Code(s): Z86.79 - Personal history of other diseases of the circulatory system (7) Renal insufficiency Current visit: Yes Status: Acute Category: Medical Code(s): N28.9 - Disorder of kidney and ureter, unspecified (8) Non compliance w medication regimen Current visit: Yes Status: Acute Category: Medical Code(s): Z91.14 - Patient's other noncompliance with medication regimen - Assessment and plan all Dx Assessment and Plan for all problems:: will work on placement and get his zyprexa approved.
--- NOTE | 2018-03-19 09:45 | Progress Note ---
Internal Medicine - PN: Subj *Date: 03/19/18 *Time: 08:33 Interval history: Is doing a lot better compared to yesterday. He expressed his wishes of wanting to go home. Exam Vital signs and Labs for Last 24 Hours: Temp Pulse Resp BP Pulse Ox 98.7 F 86 24 118/74 96 03/19/18 08:00 03/19/18 08:00 03/19/18 08:00 03/19/18 08:00 03/19/18 08:00 I & O for Last 24 hours: Intake & Output 03/16/18 03/17/18 03/18/18 03/19/18 11:59 11:59 11:59 11:59 Intake Total 5157 / 5157 3127 / 3127 720 / 720 2460 / 2460 Output Total 1650 / 1650 1800 / 1800 1500 / 1500 200 / 200 Balance 3507 / 3507 1327 / 1327 -780 / -780 2260 / 2260 Weight 153 lb 6 oz 149 lb 8 oz 146 lb - *Routine HEENT Exam Head: Present: normocephalic Eye: Present: EOMI ENT: Present: mucous membranes moist - *Routine Neck Exam Present: supple, full ROM - *Routine Respiratory Exam Present: CTA bilaterally - *Routine Cardiovascular Exam Present: RRR - *Routine Abdominal Exam Present: soft, normoactive bowel sounds - *Routine Extremities Exam Absent: edema - *Routine Skin Exam Present: intact - *Routine Neurological Exam Present: alert, oriented X3 - Routine Psychiatric Exam Present: normal affect Assessment and Plan (1) Schizophrenia Current visit: Yes Status: Acute Category: Medical Code(s): F20.9 - Schizophrenia, unspecified (2) Altered mental status Current visit: Yes Status: Resolved Qualifiers: Altered mental status type: unspecified Qualified Code(s): R41.82 - Altered mental status, unspecified Category: Medical Code(s): R41.82 - Altered mental status, unspecified (3) Acute delirium Current visit: No Status: Acute Category: Medical Code(s): R41.0 - Disorientation, unspecified (4) Agitation Current visit: No Status: Acute Category: Medical Code(s): R45.1 - Restlessness and agitation (5) Poor social situation Current visit: No Status: Acute Category: Social Hx Code(s): Z65.9 - Problem related to unspecified psychosocial circumstances (6) History of subdural hematoma Current visit: Yes Status: Acute Category: Medical Code(s): Z86.79 - Personal history of other diseases of the circulatory system (7) Renal insufficiency Current visit: Yes Status: Acute Category: Medical Code(s): N28.9 - Disorder of kidney and ureter, unspecified (8) Non compliance w medication regimen Current visit: Yes Status: Acute Category: Medical Code(s): Z91.14 - Patient's other noncompliance with medication regimen - Assessment and plan all Dx Assessment and Plan for all problems:: I had an extensive talk with the patient about the need of his placement and to get his IM injections every month for his schizophrenia. After my discussion with them patient had agreed to stay here until he has right placement set up for him. Possible discharge tomorrow or Tuesday depending on his placement and approval of his medication.
--- NOTE | 2018-03-20 09:15 | Progress Note ---
Addendum entered and electronically signed by Alena Mccauley APRN 03/21/18 05:01: Original Note: <ParisaAlena - Last Filed: 03/20/18 09:12> Internal Medicine - PN: Subj *Date: 03/20/18 *Time: 09:12 Interval history: Patient is anxious to be discharged so that he may attend court which is scheduled for 1:00 PM today. He states he has no transportation and [facility] He was unable to eat breakfast this a.m. due to heartburn. He denies chest pain and shortness of breath. Exam Vital signs and Labs for Last 24 Hours: Temp Pulse Resp BP Pulse Ox 98.4 F 107 H 16 120/86 96 03/20/18 07:39 03/20/18 07:39 03/20/18 07:39 03/20/18 07:39 03/20/18 07:39 I & O for Last 24 hours: Intake & Output 03/17/18 03/18/18 03/19/18 03/20/18 11:59 11:59 11:59 11:59 Intake Total 3127 / 3127 720 / 720 2460 / 2460 1620 / 1620 Output Total 1800 / 1800 1500 / 1500 200 / 200 Balance 1327 / 1327 -780 / -780 2260 / 2260 1620 / 1620 Weight 153 lb 6 oz 149 lb 8 oz 146 lb 142 lb 2 oz - Constitutional no acute distress Comments: Sitting up in the bed watching TV. Legs are crossed - *Routine Respiratory Exam Present: CTA bilaterally (Anteriorly and posteriorly) - *Routine Cardiovascular Exam Present: RRR - *Routine Abdominal Exam Present: soft, normoactive bowel sounds. Absent: tenderness - *Routine Extremities Exam Absent: edema - *Routine Neurological Exam Present: alert, oriented X3 Assessment and Plan (1) Schizophrenia Status: Acute Category: Medical Code(s): F20.9 - Schizophrenia, unspecified (2) Altered mental status Status: Resolved Qualifiers: Altered mental status type: unspecified Qualified Code(s): R41.82 - Altered mental status, unspecified Category: Medical Code(s): R41.82 - Altered mental status, unspecified (3) Acute delirium Status: Acute Category: Medical Code(s): R41.0 - Disorientation, unspecified (4) Agitation Status: Acute Category: Medical Code(s): R45.1 - Restlessness and agitation (5) Poor social situation Status: Acute Category: Social Hx Code(s): Z65.9 - Problem related to unspecified psychosocial circumstances (6) History of subdural hematoma Status: Acute Category: Medical Code(s): Z86.79 - Personal history of other diseases of the circulatory system (7) Renal insufficiency Status: Acute Category: Medical Code(s): N28.9 - Disorder of kidney and ureter, unspecified (8) Non compliance w medication regimen Status: Acute Category: Medical Code(s): Z91.14 - Patient's other noncompliance with medication regimen - Assessment and plan all Dx Assessment and Plan for all problems:: Patient will be discharged today. He will need to follow-up with his family physician for his Celexa. Care management is arranging for transportation home so that he may attend court this p.m. <Devika Meza - Last Filed: 03/20/18 11:45> Exam Vital signs and Labs for Last 24 Hours: Temp Pulse Resp BP Pulse Ox 98.4 F 107 H 16 120/86 96 03/20/18 07:39 03/20/18 07:39 03/20/18 07:39 03/20/18 07:39 03/20/18 07:39 I & O for Last 24 hours: Intake & Output 03/17/18 03/18/18 03/19/18 03/20/18 11:59 11:59 11:59 11:59 Intake Total 3127 / 3127 720 / 720 2460 / 2460 1620 / 1620 Output Total 1800 / 1800 1500 / 1500 200 / 200 Balance 1327 / 1327 -780 / -780 2260 / 2260 1620 / 1620 Weight 153 lb 6 oz 149 lb 8 oz 146 lb 142 lb 2 oz Assessment and Plan (1) Schizophrenia Status: Acute Category: Medical Code(s): F20.9 - Schizophrenia, unspecified (2) Altered mental status Status: Resolved Qualifiers: Altered mental status type: unspecified Qualified Code(s): R41.82 - Altered mental status, unspecified Category: Medical Code(s): R41.82 - Altered mental status, unspecified (3) Acute delirium Status: Acute Category: Medical Code(s): R41.0 - Disorientation, unspecified (4) Agitation Status: Acute Category: Medical Code(s): R45.1 - Restlessness and agitation (5) Poor social situation Status: Acute Category: Social Hx Code(s): Z65.9 - Problem related to unspecified psychosocial circumstances (6) History of subdural hematoma Status: Acute Category: Medical Code(s): Z86.79 - Personal history of other diseases of the circulatory system (7) Renal insufficiency Status: Acute Category: Medical Code(s): N28.9 - Disorder of kidney and ureter, unspecified (8) Non compliance w medication regimen Status: Acute Category: Medical Code(s): Z91.14 - Patient's other noncompliance with medication regimen - Assessment and plan all Dx Assessment and Plan for all problems:: Patient is discharged today as he is stable medically and that he has a court date to attend this PM. He was advised to f/u with his family doctor within 1 week to get his zyprexa ER (once a month shot) for his schizophrenia. I did not prescribe him any anti-psychotics as he is not to be trusted with lot of PO medications with his overdose history. Case management was also in the process of getting him into rehab facilities, however, this is upto the patient to pursue this at this time.
--- NOTE | 2018-03-20 14:21 | Discharge Summary ---
General - General Admission date:: 03/14/18 Discharge date: 03/20/18 HPI HPI: Mr. Longo is a 58-year-old male with a history of psych illness and subdural hematomas who presented to the emergency room via EMS. EMS responded to his life alert call and found the patient at home throwing objects with the table turned over and broken glasses. Patient was combative and with uncontrolled behavior. No trauma was noted. Patient was unable to give history. Patient was evaluated in the emergency room. He was given a total of 10 mg of Haldol IM and 2 mg of Ativan IM. He remained agitated and combative and was thus admitted. Patient was a known frequent visitor to the emergency room with combative/ agitated behavior. With his last visit in January 2018 he had head trauma and was transferred to the [facility]. At the time of exam patient remained very restless and agitated. He was in constant motion moving from one end of the bed to the other. He had no family or significant other present. Patient with eyes closed and was nonverbal. He did not follow verbal commands. History was obtained from records. Hospital Course Hospital Course: Initially after admission patient continued to receive Haldol and Ativan IM for ongoing agitation and combativeness. He was in four-point restraints with one-to-one care by nursing staff. He eventually had an IV and Dunham cath inserted. He did receive IV fluids until he pulled the IV out 2 days later. By this time he was able to eat and drink without problems. He remained in restraints until 03/16/2018. The previous night he became calm although he still continued with unpurposeful movements. He had been on Ativan scheduled every 2 hours and Haldol as needed. He did receive a dose of ketamine and loading dose of phenytoin. He was started also on IM Zyprexa which he received daily until discharged. Effort was made to transfer him to the [facility] but they would not accept him because he could not give his consent. By 03/17/2018 he became more awake and was coherent. He admitted to drug and alcohol abuse. Case management was consulted for disposition and for approval of monthly injections of Zyprexa. He continued to improve daily and by 03/20/2018 he was stable medically for discharge. On this date he stated that he had to be in court at 1 PM or else he would [facility] to [facility]. Case management continued to work on getting him into a rehab facility and for approval of his Zyprexa. He was stable to be discharged and case management arranged transportation to his home. He was not given any further psychiatric drugs for his schizophrenia due to his illicit abuses, overdosing and medical noncompliance. He was to follow-up with his family doctor in [place] within the week at which time he was to get Zyprexa for his schizophrenia approved. Case management was to continue to work on a rehab facility. See discharge orders. At time of discharge the condition of the patient was stable and satisfactory. Objective Vital signs: Temp Pulse Resp BP Pulse Ox 98.4 F 107 H 16 120/86 96 03/20/18 07:39 03/20/18 07:39 03/20/18 07:39 03/20/18 07:39 03/20/18 07:39 Narrative: General: Patient was alert and oriented and in no acute distress lying comfortably in the bed. He was anxious to be discharged so he could make his court date. Lungs: Clear to auscultation bilaterally A&P Heart: Regular rate and rhythm Abdomen: Soft nontender nondistended with positive bowel sounds. Extremities: No edema Results Labs on day of discharge: Preliminary micro results at discharge 03/15/18 19:13 Blood Culture - Preliminary Blood NO GROWTH AFTER 48 HOURS 03/15/18 19:13 Blood Culture - Preliminary Blood NO GROWTH AFTER 48 HOURS - Impressions 03/13/2018 CT of the head IMPRESSION: No acute intracranial findings 03/14/2018 chest x-ray IMPRESSION: No change with no acute finding. DS: Diagnosis - Discharge Diagnosis (1) Schizophrenia Status: Acute (2) Altered mental status Status: Resolved (3) Acute delirium Status: Resolved (4) Agitation Status: Resolved (5) Poor social situation Status: Chronic (6) History of subdural hematoma Status: Chronic (7) Renal insufficiency Status: Chronic (8) Non compliance w medication regimen Status: Chronic (9) Alcohol use disorder Status: Chronic Discharge Plan - Patient Discharge Instructions ACTIVITY: Continue current activity DIET: continue same diet Patient Instructions: DI for Altered Mental Status, DI for Leukocytosis - Follow up Plan Follow up with: Provider,Referral, MD [Primary Care Provider] - Disposition: Home, Self-Half-Way Medications: Home Medications Medication Instructions Recorded Confirmed Type Bisoprolol Fumarate [Zebeta 5mg 5 mg PO DAILY 09/07/17 03/13/18 History tablet] Isosorbide Mononitrate [Imdur 30mg 30 mg PO DAILY 09/07/17 03/13/18 History ER tablet] Prescriptions/Medication Reconciliation: Continue Isosorbide Mononitrate [Imdur 30mg ER tablet] 30 mg PO DAILY Bisoprolol Fumarate [Zebeta 5mg tablet] 5 mg PO DAILY Discontinued Gabapentin [Neurontin 300mg capsule] 300 mg PO TID Quetiapine Fumarate [Seroquel 100mg Tablet] 100 mg PO DAILY Cyclobenzaprine HCl [Cyclobenzaprine 5mg Tab] 5 mg PO TID Baclofen [Lioresal 10mg tablet] 10 mg PO TID
== END 2018-03-20 10:11 | disposition home or self-care (01) | DRG 885 ==
LOC: 2ND 21:28 → ER 21:28 → OBSVTOIN 03-14 01:30 → 2ND 03-14 01:35
PROVIDERS: ADMIT Emergency Medicine; ATTEND Emergency Medicine

== ENCOUNTER 2018-04-07 08:20 | Observation (INO) ==
--- NOTE | 2018-04-07 08:31 | Emergency Department Note ---
ED Disposition Clinical Impression: Healthcare-associated pneumonia Schizophrenia Qualifiers: Schizophrenia type: unspecified Qualified Code(s): F20.9 - Schizophrenia, unspecified Altered mental status Qualifiers: Altered mental status type: unspecified Qualified Code(s): R41.82 - Altered m ental status, unspecified Disposition: Admitted as Observation Condition on Discharge: Fair Referrals: Provider,Referral, [Primary Care Provider] - - Critical Care Critical Care Time: No Attestation: On , the high probability of a clinically significant, sudden or life threatening deterioration of the following system(s) required my full and direct attention, intervention and personal management. The time I documented below is in addition to time spent performing reported procedures but includes the following listed in this critical care notation. Medical Decision Making - Karel Inquiry Pt receiving controlled substance: No Vital Signs: 04/07/18 08:22 04/07/18 08:32 04/07/18 09:58 Temperature 97.9 F 97.9 F Temperature Source Oral Oral Pulse Rate [Left Radial] 91 H 91 H 119 H Respiratory Rate 18 18 Blood Pressure [Right Arm] 159/103 H 159/103 H 157/103 H Blood Pressure Mean [Right Arm] 121 121 121 Blood Pressure Source [Right Arm] Automatic Cuff Automatic Cuff Automatic Cuff Blood Pressure Position [Right Arm] Sitting Sitting Supine 02 Sat by Pulse Oximetry 98 98 98 Oxygen Delivery Method Room Air Room Air - Lab Data Lab Results 04/07/18 08:55: Urine Opiates Screen Negative, Urine Methadone Screen Negative, Ur Barbituates Screen Negative, Ur Phencyclidine Scrn Negative, Ur Amphetamines Screen Negative, U Benzodiazepines Scrn Negative, Urine Cocaine Screen Negative, U Marijuana (THC) Screen Negative 04/07/18 08:55: Urine Color Yellow, Urine Appearance Clear, Urine pH 6.5, Ur Specific [place] <= 1.005, Urine Protein Negative, Urine Glucose (UA) Negative, Urine Ketones Negative, Urine Blood Trace-i, Urine Nitrate Negative, Urine Bilirubin Negative, Urine Urobilinogen 0.2, Ur Leukocyte Esterase 2+ A, Urine RBC Occasional, Urine WBC 20-50, Ur Squamous Epith Cells 3-5, Urine Bacteria 1+, Urine Mucus Trace 04/07/18 08:57: WBC 12.1 H, RBC 4.93, Hgb 15.6, Hct 47.6, MCV 96.5 H, MCH 31.6 H , MCHC 32.8, RDW 14.3, Plt Count 423, MPV 7.9, Neut % (Auto) 74.6, Lymph % (Auto) 16.7, Hayes % (Auto) 5.7, Eos % (Auto) 1.6, Baso % (Auto) 1.3, Neut # (Auto) 9.0 H, Lymph # (Auto) 2.0, Hayes # (Auto) 0.7, Eos # (Auto) 0.2, Baso # (Auto) 0.2 04/07/18 09:50: Sodium 136, Potassium 4.8, Chloride 98, Carbon Dioxide 29, Anion Gap 13.8, BUN 10, Creatinine 1.28, Estimated Creat Clear 65, Estimated GFR 58 L, Est GFR ( Amer) 70, Glucose 104, Calcium 9.5, Total Bilirubin 0.3, AST 8 L, ALT 15, Alkaline Phosphatase 95, Total Creatine Kinase 67, CK-MB (CK-2) 2.1 D, CK-MB (CK-2) Rel Index 3.1, Troponin I < 0.02, Total Protein 7.5, Albumin 3.8, Globulin 3.7 H, Albumin/Globulin Ratio 1.0 L, Plasma/Serum Alcohol 0 04/07/18 10:12: Lactate 1.7 Result diagrams: 04/07/18 08:57 04/07/18 09:50 Orders (Tests/Meds): ED MEDICATIONS Generic Name Dose Route Start Last Admin Trade Name Freq PRN Reason Stop Dose Admin Ceftriaxone Sodium 1 gm/ 50 mls @ 100 mls/hr 04/07/18 09:45 04/07/18 09:46 Sodium Chloride IV 04/21/18 09:44 100 mls/hr Q24H KASH Administration Protocol Levofloxacin/Dextrose 750 mg in 150 mls @ 100 mls/hr 04/07/18 10:00 04/07/18 10:02 Levofloxacin 750mg/150ml Premix IV 04/21/18 09:59 100 mls/hr Q24H KASH Administration Protocol Vancomycin HCl 1,500 mg/ 250 mls @ 125 mls/hr 04/07/18 11:00 04/07/18 10:17 Sodium Chloride IV 04/21/18 10:59 125 mls/hr Q18H KASH Administration Olanzapine 10 mg 04/07/18 10:18 02/15/19 10:30 Zyprexa 10mg Vial IM 10 mg Q2HP PRN Administration Agitation Sodium Chloride 10 ml 04/07/18 08:38 Saline Flush 10ml Syringe IV 05/07/18 08:37 NEEDED PRN Maintain IV Site Sodium Chloride 10 ml 04/07/18 10:31 Saline Flush 10ml Syringe IV 05/07/18 10:30 NEEDED PRN Maintain IV Site Sodium Chloride 3 ml 04/07/18 11:00 Sodium Chloride 3% 15ml Neb IH 05/07/18 10:59 ONCE PRN INDUCE SPUTUM COLLECTION Discontinued Medications Generic Name Dose Route Start Last Admin Trade Name Freq PRN Reason Stop Dose Admin Azithromycin 500 mg/ Sodium 250 mls @ 250 mls/hr 04/07/18 10:00 Chloride IV 04/21/18 09:59 Q24H [facility] Protocol Miscellaneous 1 each 04/07/18 10:00 04/07/18 10:03 Vancomycin Consult Request NOTAPPLIC 04/07/18 21:57 1 each CONSULT PHARMACY KASH Administration ORDERS Category Date Time Status Urinalysis and Microscopic Stat Lab 04/07/18 08:55 Ordered Blood Culture Stat Micro 04/07/18 09:59 Received Sputum Culture & Gram Stain Stat Micro 04/07/18 11:00 Ordered Urine Culture Stat Micro 04/07/18 08:55 Received - Radiology Data #1 Image(s): Chest Image Reviewed: Yes I reviewed the patient's radiology image, Yes I discussed the image results w/the radiologist RLL infiltrate - CT Data CT Scan: Head Time Received: 09:[address] Reviewed: Yes: I discussed the CT results w/the radiologist Preliminary Findings: Normal/NAD - ECG Data Tracing #1 EKG interpreted by Shaka Stanford MD: Rhythm: sinus tachycardia Rate: 108 [place]: normal Ectopy: none Conduction: normal ST Segment Changes: none T Wave Changes: none Q Waves: Anterior septal, old No evidence of acute ischemia or injury Prior electrocardiagrams reviewed. No change from prior tracings. - Physician Consults Physician Consulted: Jasiel Time: 11:01 Reason -: Admission Comment/Response: Agrees to admit the patient to the hospital. We discussed the patient's clinical information, including history, exam, laboratory and radiology results and ED course. Per hospital procedure, I will write temporary bridge inpatient orders on the patient. Specific orders requested by the admitting physician: Change antibiotics to cefepime and vancomycin. Continue Zyprexa. Sputum culture. - Reevaluation(s) Time: 10:35 Reevaluation #1: Has become very restless. Nonverbal, but trying to get out of bed, trying to pull IV out. Intramuscular Zyprexa administered. Medical Decision Narrative: Prior medication administration record reviewed, has had Rocephin several times in the past. No reported reaction. General Adult HPI - General Chief complaint: Altered Mental Status Stated complaint: AMS Time Seen by Provider: 04/07/18 08:30 Mode of Arrival: Ambulatory Limitations: No Limitations Description of Symptoms (Recalled from ER Triage Doc. by RN): Patient brought to Ed related to patient breaking glass in his apartment. No injury note at this time. Patient very sleepy. States he is tired. - History of Present Illness HPI narrative: Brought in by ambulance for evaluation. The patient has no complaints himself. He was apparently working windows around his residence. He is under arrest. Police officers presented here as well as a renal social worker from the police department who states that she will follow-up with the patient once he is home. Patient is a known alcohol and drug abuser and schizophrenic. He has presented to this emergency room multiple times with altered mental status, suspected to be drug related. He has also had subdural hematomas in the past. Most recently admitted for 6 days in February. Discharge summary indicates that he was to follow-up with his primary care provider in [place] and begin receiving intramuscular injections of Zyprexa. The patient is unable to tell me whether he has seen his primary care doctor or whether he is receiving injections. Personnel familiar with his last inpatient visit state that the only medication that seemed to help his behavioral/psychiatric condition and agitation was intramuscular Zyprexa. He currently denies any pain. He knows his name, but does not know where he is or the date. He cannot tell me any specifics about why he is here. He denies current alcohol or drug use. Records review shows that he was to have a new patient visit with Dr. Worrell 04/05, but I see not note indicating that he actually showed up. - Related Data Home Medications Medication Instructions Recorded Confirmed Bisoprolol Fumarate [Zebeta 5mg 5 mg PO DAILY 09/07/17 04/07/18 tablet] Isosorbide Mononitrate [Imdur 30mg 30 mg PO DAILY 09/07/17 04/07/18 ER tablet] Allergies Allergy/AdvReac Type Severity Reaction Status Date / Time codeine [CODEINE] Allergy Unknown Unknown Verified 03/13/18 21:43 allergy reaction meperidine [From DEMEROL] Allergy Unknown Unknown Verified 03/13/18 21:43 allergy reaction oxycodone [From PERCOCET] Allergy Unknown Unknown Verified 03/13/18 21:43 allergy reaction Penicillins [PENICILLINS] Allergy Unknown Unknown Verified 03/13/18 21:43 allergy reaction sertraline [From ZOLOFT] Allergy Unknown Unknown Verified 03/13/18 21:43 allergy reaction [facility] History - Hepatitis A Screen Drug use history?: Yes High risk sexual behaviors?: No History of sexually transmitted infection?: No Currently employed?: No Childcare worker?: No Do you have indoor plumbing?: Yes Do you have electricity?: Yes Attestation statement:: This patient has been screened for Hepatitis A risk factors. I have reviewed the patient's past medical history: Yes Medical History: Reports:: Dementia, Internal Pacemaker Denies:: Cancer, Diabetes Mellitus Type 1, Diabetes Mellitus Type 2, MRSA Other Medical History: Reports: Other (alcoholism, bipora disorder) Comment: Heart disease Other Surgeries: Yes: Pacemaker Amputation: No Fractures: No - Social History Smoking Status: Current every day smoker Tobacco Type: cigarettes # Packs/Day (cigarettes): 1 Alcohol Intake: former Alcohol Intake Frequency:: other Substance Use Type: denies use Last Used Substance: unknown Occupational Status: disabled Housing: apartment Household Members: none - Psychiatric History Expresses thoughts of harming self/others: None Suicide Plan Description: No Plan Family Hx:: Unable to obtain ROS Obtained: Yes unobtainable due to mental status, Yes unobtainable due to mental condition Physical Exam - General General appearance: other Comment: Drowsy. When spoken to he will sit up in bed and answer some brief questions. However he will then almost immediately lay back down and drift off to sleep. Has some intermittent twitching, myoclonic type of movements when he is sleeping. - Head Head exam: atraumatic, normocephalic - Eye Eye exam: Present: PERRL, EOMI - ENT ENT exam: Present: mucous membranes moist - Neck Neck exam: Present: normal inspection, trachea midline - Chest Chest inspection: Present: normal inspection, symmetric chest wall rise - Respiratory Respiratory exam: Present: other (Audible rattling sound with respirations) - Cardiovascular Cardiovascular exam: Present: regular rate, normal rhythm, normal heart sounds - Abdominal Exam Abdominal exam: Present: soft. Absent: distention, tenderness - Extremities Exam Extremities exam: Present: normal inspection, full ROM - Neurological Exam Neurological exam: Present: CN II-XII intact, other (Oriented to person only. Drowsy. He did ambulate independently into the emergency department.). Absent: motor sensory deficit - Psychiatric Psychiatric exam: Present: flat affect - Skin Skin exam: Present: warm, dry
[2018-04-07 09:14] LABS: Basophils # 0.2 K/mm3 (0-0.2); Basophils % 1.3 % (0.1-2.0); Eosinophils # 0.2 K/mm3 (0.0-0.4); Eosinophils % 1.6 % (0.1-12.0); Hematocrit 47.6 % (42.0-52.0); Hemoglobin 15.6 g/dL (14.1-18.0); Lymphocytes % 16.7 % (10-50); Mean Corpuscular HGB Conc 32.8 g/dL (31.8-35.4); Mean Corpuscular Hemoglobin 31.6 pg (27.0-31.2); Mean Corpuscular Volume 96.5 fl (80-94); Mean Platelet Volume 7.9 fl (7.4-10.4); Monocytes # 0.7 K/mm3 (0.1-1.0); Monocytes % 5.7 % (1.7-9.3); Neutrophils % 74.6 % (37.0-80.0); Platelet Count 423 K/mm3 (142-424); Red Blood Count 4.93 M/mm3 (4.60-6.20); Red Cell Distribution Width 14.3 % (11.5-17.5); White Blood Count 12.1 K/mm3 (4.8-10.8)
[2018-04-07 09:15] LABS: Microscopic, Urine URINE MICROSCOPIC (MICROSCOPIC)
[2018-04-07 09:16] LABS: Appearance,Urine CLEAR (Clear); Bilirubin,Urine Negative (Negative); Blood, Urine TRACE-I (Negative); Color,Urine YELLOW (Yellow); Glucose,Urine (UA) Negative (Negative); Ketones,Urine Negative (Negative); Leukocyte Esterase,Urine 2+ (Negative); PH,Urine 6.5 (5.0-8.5); Protein,Urine Negative (Negative); Specific Gravity, Urine <= 1.005 (1.005-1.030); Urobilinogen,Urine 0.2 EU/dl (0.2)
[2018-04-07 09:24] LABS: Amphetamine/Metha Screen,Urine Negative ng/mL (<1000); Barbiturates Screen,Urine Negative ng/mL (<200); Benzodiazepines Screen,Urine Negative ng/mL (<200); Cannabinoid Screen,Urine Negative ng/mL (<50); Cocaine Screen,Urine Negative ng/mL (<300); Methadone Screen,Urine Negative ng/mL (<300); Opiate Screen,Urine Negative ng/mL (<300); Phencyclidine Screen,Urine Negative ng/mL (<25)
[2018-04-07 09:26] LABS: WBC,Urine 20-50 #/hpf (0-3)
[2018-04-07 09:27] LABS: Bacteria,Urine 1+ /lpf; Mucus,Urine Trace /lpf; RBC,Urine Occasional #/hpf (0-3)
[2018-04-07 10:36] LABS: Alanine Aminotransferase 15 U/L (12-78); Albumin Level 3.8 gm/dL (3.4-5.0); Alkaline Phosphatase 95 U/L (46-116); Anion Gap 13.8 mEq/L (5-15); Aspartate Amino Transferase 8 U/L (15-37); Bilirubin,Total 0.3 mg/dL (0.2-1.0); Blood Urea Nitrogen 10 mg/dL (7-18); Calcium 9.5 mg/dL (8.5-10.1); Carbon Dioxide 29 mmol/L (21.0-32.0); Chloride 98 mmol/L (98-107); Creatine Kinase 67 U/L (39-308); Ethyl Alcohol 0 mg/dL (0-99); Globulin 3.7 gm/dl (1.3-3.2); Glucose 104 mg/dL (74-106); Potassium 4.8 mmoL/L (3.5-5.1); Sodium 136 mmol/L (136-145); Total Protein,Serum 7.5 gm/dL (6.4-8.2)
--- NOTE | 2018-04-07 10:45 | Pharmacy Consult Notes ---
- Pharmacy Consult Date: 04/07/18 Time: 10:43 Referring provider: DR. MIRZA Reason for Consult:: VANCOMYCIN DOSING Allergies and ADEs:: Allergies Allergy/AdvReac Type Severity Reaction Status Date / Time codeine [CODEINE] Allergy Unknown Unknown Verified 03/13/18 21:43 allergy reaction meperidine [From DEMEROL] Allergy Unknown Unknown Verified 03/13/18 21:43 allergy reaction oxycodone [From PERCOCET] Allergy Unknown Unknown Verified 03/13/18 21:43 allergy reaction Penicillins [PENICILLINS] Allergy Unknown Unknown Verified 03/13/18 21:43 allergy reaction sertraline [From ZOLOFT] Allergy Unknown Unknown Verified 03/13/18 21:43 allergy reaction Home Medications:: Home Medications Medication Instructions Recorded Confirmed Type Bisoprolol Fumarate [Zebeta 5mg 5 mg PO DAILY 09/07/17 04/07/18 History tablet] Isosorbide Mononitrate [Imdur 30mg 30 mg PO DAILY 09/07/17 04/07/18 History ER tablet] Height: 1.83 m Weight: 72.575 kg Laboratory Results:: Laboratory Results - last 24 hr 04/07/18 08:55: Urine Opiates Screen Negative, Urine Methadone Screen Negative, Ur Barbituates Screen Negative, Ur Phencyclidine Scrn Negative, Ur Amphetamines Screen Negative, U Benzodiazepines Scrn Negative, Urine Cocaine Screen Negative, U Marijuana (THC) Screen Negative 04/07/18 08:55: Urine Color Yellow, Urine Appearance Clear, Urine pH 6.5, Ur Specific [place] <= 1.005, Urine Protein Negative, Urine Glucose (UA) Negative, Urine Ketones Negative, Urine Blood Trace-i, Urine Nitrate Negative, Urine Bilirubin Negative, Urine Urobilinogen 0.2, Ur Leukocyte Esterase 2+ A, Urine RBC Occasional, Urine WBC 20-50, Ur Squamous Epith Cells 3-5, Urine Bacteria 1+, Urine Mucus Trace 04/07/18 08:57: WBC 12.1 H, RBC 4.93, Hgb 15.6, Hct 47.6, MCV 96.5 H, MCH 31.6 H , MCHC 32.8, RDW 14.3, Plt Count 423, MPV 7.9, Neut % (Auto) 74.6, Lymph % (Auto) 16.7, [place] % (Auto) 5.7, Eos % (Auto) 1.6, Baso % (Auto) 1.3, Neut # (Auto) 9.0 H, Lymph # (Auto) 2.0, [place] # (Auto) 0.7, Eos # (Auto) 0.2, Baso # (Auto) 0.2 04/07/18 09:50: Sodium 136, Potassium 4.8, Chloride 98, Carbon Dioxide 29, Anion Gap 13.8, BUN 10, Creatinine 1.28, Estimated Creat Clear 65, Estimated GFR 58 L, Est GFR ( Amer) 70, Glucose 104, Calcium 9.5, Total Bilirubin 0.3, AST 8 L, ALT 15, Alkaline Phosphatase 95, Total Creatine Kinase 67, CK-MB (CK-2) 2.1 D, CK-MB (CK-2) Rel Index 3.1, Troponin I < 0.02, Total Protein 7.5, Albumin 3.8, Globulin 3.7 H, Albumin/Globulin Ratio 1.0 L, Plasma/Serum Alcohol 0 Medical History: Reports:: Dementia, Internal Pacemaker Denies:: Cancer, Diabetes Mellitus Type 1, Diabetes Mellitus Type 2, MRSA Assessment and Plan - Assessment and plan all Dx Assessment and Plan for all problems:: BASED ON PATIENT'S FACTORS, RECOMMEND STARTING WITH VANCOMYCIN 1500 MG Q18H AT THIS TIME. PHARMACY WILL FOLLOW DAILY AND ADJUST APPROPRIATE. BENJAMÍN DUDLEY, TOMASD
--- NOTE | 2018-04-07 14:18 | History & Physical Report ---
*Admission Date: 04/07/18 *Chief complaint: pneumonia, UTI, AMS *History of present illness: Per ER note as unable to obtain information from patient due to AMS. "Brought in by ambulance for evaluation. The patient has no complaints himself. He was apparently working windows around his residence. He is under arrest. Police officers presented here as well as a social science teacher from the police department who states that she will follow-up with the patient once he is home. Patient is a known alcohol and drug abuser and schizophrenic. He has presented to this emergency room multiple times with altered mental status, suspected to be drug related. He has also had subdural hematomas in the past. Most recently admitted for 6 days in February. Discharge summary indicates that he was to follow-up with his primary care provider in [place] and begin receiving intramuscular injections of Zyprexa. The patient is unable to tell me whether he has seen his primary care doctor or whether he is receiving injections. Personnel familiar with his last inpatient visit state that the only medication that seemed to help his behavioral/psychiatric condition and agitation was intramuscular Zyprexa. He currently denies any pain. He knows his name, but does not know where he is or the date. He cannot tell me any specifics about why he is here. He denies current alcohol or drug use.." On my interview, patient made no eye contact, did not respond to verbal stimuli. followed no commands. Was awake but not responsive to external stimuli. Non verbal. He was in 4 point restraints with rhythmic flexing trying to get out of restraints. No Posturing or tonic/clonic spells. [facility] History I have reviewed the patient's past medical history: Yes Medical History: Reports:: Dementia, Internal Pacemaker Denies:: Cancer, Diabetes Mellitus Type 1, Diabetes Mellitus Type 2, MRSA *Have you ever received a pneumonia vaccine?: (UNABLE TO ANSWER) *Have you received a flu vaccine this season?: (UNABLE TO ANSWER) Other Medical History: Reports: Other (alcoholism, bipora disorder) Other Surgeries: Yes: Pacemaker Amputation: No Fractures: No - *Social History Smoking Status: Current every day smoker Tobacco Type: cigarettes # Packs/Day (cigarettes): 0 Alcohol Intake: current Alcohol Intake Frequency:: other Substance Use Type: denies use Last Used Substance: unknown *Occupational Status:: disabled Housing: apartment Household Members: none *Travel in the last 8 weeks: None - Psychiatric History Expresses thoughts of harming self/others: Harm to Others Suicide Plan Description: No Plan Family Hx:: Unable to obtain Review of Systems - Review of Systems Review of systems:: unable to obtain Meds Home Medications Medication Instructions Recorded Confirmed Type Bisoprolol Fumarate [Zebeta 5mg 5 mg PO DAILY 09/07/17 04/07/18 History tablet] Isosorbide Mononitrate [Imdur 30mg 30 mg PO DAILY 09/07/17 04/07/18 History ER tablet] Allergies Allergy/AdvReac Type Severity Reaction Status Date / Time codeine [CODEINE] Allergy Unknown Unknown Verified 03/13/18 21:43 allergy reaction meperidine [From DEMEROL] Allergy Unknown Unknown Verified 03/13/18 21:43 allergy reaction oxycodone [From PERCOCET] Allergy Unknown Unknown Verified 03/13/18 21:43 allergy reaction Penicillins [PENICILLINS] Allergy Unknown Unknown Verified 03/13/18 21:43 allergy reaction sertraline [From ZOLOFT] Allergy Unknown Unknown Verified 03/13/18 21:43 allergy reaction Exam Vital signs and Labs for Last 24 Hours: Temp Pulse Resp BP Pulse Ox 98.6 F 80 20 128/78 96 04/07/18 12:36 04/07/18 12:36 04/07/18 12:36 04/07/18 12:36 04/07/18 12:31 Laboratory Results - last 24 hr 04/07/18 08:55: Urine Opiates Screen Negative, Urine Methadone Screen Negative, Ur Barbituates Screen Negative, Ur Phencyclidine Scrn Negative, Ur Amphetamines Screen Negative, U Benzodiazepines Scrn Negative, Urine Cocaine Screen Negative, U Marijuana (THC) Screen Negative 04/07/18 08:55: Urine Color Yellow, Urine Appearance Clear, Urine pH 6.5, Ur Specific [place] <= 1.005, Urine Protein Negative, Urine Glucose (UA) Negative, Urine Ketones Negative, Urine Blood Trace-i, Urine Nitrate Negative, Urine Haroon irubin Negative, Urine Urobilinogen 0.2, Ur Leukocyte Esterase 2+ A, Urine RBC Occasional, Urine WBC 20-50, Ur Squamous Epith Cells 3-5, Urine Bacteria 1+, Urine Mucus Trace 04/07/18 08:57: WBC 12.1 H, RBC 4.93, Hgb 15.6, Hct 47.6, MCV 96.5 H, MCH 31.6 H , MCHC 32.8, RDW 14.3, Plt Count 423, MPV 7.9, Neut % (Auto) 74.6, Lymph % (Auto) 16.7, [place] % (Auto) 5.7, Eos % (Auto) 1.6, Baso % (Auto) 1.3, Neut # (Auto) 9.0 H, Lymph # (Auto) 2.0, [place] # (Auto) 0.7, Eos # (Auto) 0.2, Baso # (Auto) 0.2 04/07/18 09:50: Sodium 136, Potassium 4.8, Chloride 98, Carbon Dioxide 29, Anion Gap 13.8, BUN 10, Creatinine 1.28, Estimated Creat Clear 65, Estimated GFR 58 L, Est GFR ( Amer) 70, Glucose 104, Calcium 9.5, Total Bilirubin 0.3, AST 8 L, ALT 15, Alkaline Phosphatase 95, Total Creatine Kinase 67, CK-MB (CK-2) 2.1 D, CK-MB (CK-2) Rel Index 3.1, Troponin I < 0.02, Total Protein 7.5, Albumin 3.8, Globulin 3.7 H, Albumin/Globulin Ratio 1.0 L, Plasma/Serum Alcohol 0 04/07/18 10:12: Lactate 1.7 I & O for Last 24 hours: Intake & Output 04/04/18 04/05/18 04/06/18 04/07/18 23:59 23:59 23:59 23:59 Weight 70.108 kg - *Routine HEENT Exam Head: Present: normocephalic, atraumatic ENT: Present: mucous membranes moist Comments: Pupils pinpoint, reactive to light, poor dentition - *Routine Neck Exam Present: supple. Absent: JVD - *Routine Respiratory Exam Present: crackles. Absent: rales, wheezes Comments: Crackles right lower base - *Routine Cardiovascular Exam Present: Normal S1, Normal S2, tachycardia. Absent: murmur - *Routine Abdominal Exam Present: soft, normoactive bowel sounds - *Routine Rectal Exam Patient deferred: visual exam - *Routine Exam Comments: Dunham in place - *Routine Extremities Exam Absent: cyanosis, clubbing, edema - *Routine Skin Exam Present: intact, warm. Absent: cyanosis, erythema - *Routine Neurological Exam Present: altered mental status, normal tone. Absent: clonus, fasciculations, tremors Reflexes brisk, no cogwheeling. Not following hands or orienting to void. - Routine Psychiatric Exam Present: unable to assess Assessment and Plan (1) Urinary tract infection Current visit: Yes Status: Acute Qualifiers: Urinary tract infection type: acute cystitis Category: Medical Code(s): N39.0 - Urinary tract infection, site not specified Based on UA, patient has urinary tract infection. Covering with antibiotics for pneumonia as they give coverage for UTI. Urine culture pending. Will narrow antibiotics based on 70s (2) Altered mental status Current visit: Yes Status: Acute Qualifiers: Altered mental status type: unspecified Qualified Code(s): R41.82 - Altered mental status, unspecified Category: Medical Code(s): R41.82 - Altered mental status, unspecified Patient frankly encephalopathic. No response to verbal stimuli, not following commands. At this time unclear as to allergy. History of schizophrenia and on several medications that could be altering and abnormal doses. Tox screen negative, serum alcohol level negative. Ammonia level pending. Concern possible an allergic effect than urinary reaction, tachycardia. At them treating acute encephalopathy with IV Zyprexa and Ativan. Patient has calmed with use of 2 mg of Ativan. Will order as needed every 6 for agitation (3) Healthcare-associated pneumonia Current visit: Yes Status: Acute Category: Medical Code(s): J18.9 - Pneumonia, unspecified organism Cefepime and vancomycin, de-escalate based on clinical response (4) Acute urinary retention Current visit: No Status: Acute Category: Medical Code(s): R33.8 - Other retention of urine - Assessment and plan all Dx Assessment and Plan for all problems:: At this time patient required medical restraints due to encephalopathy and danger to self. Patient has been combative and tried to remove IVs and Dunham. Does not respond to commands or verbal stimuli. Reorientation, quiet environment, minimizing emboli, one-on-one sitter has not resolved or decreased pain agitation. Continues to require medical restraints at this time. We will continue to relate per protocol
--- NOTE | 2018-04-07 18:45 | Procedure Note ---
[facility] Procedure Note Procedure Note:: Reassessed patient at 1830 for medical necessity of restraints. Patient continues to require restraint use as he is frankly altered, combative, not following directions, trying to bite out his IV and pull out his Dunham. Due to danger to self risk for self harm, continues to require restraints. Will reeval uate per protocol. No concern for compromised blood flow distally to restraints in hands or feet. No irritation from restraints at this time.
--- NOTE | 2018-04-07 21:41 | Discharge Summary ---
General - General Admission date:: 04/07/18 Discharge date: 04/07/18 HPI HPI: Per ER note as unable to obtain information from patient due to AMS. "Brought in by ambulance for evaluation. The patient has no complaints himself. He was apparently working windows around his residence. He is under arrest. Police officers presented here as well as a social director from the police department who states that she will follow-up with the patient once he is home. Patient is a known alcohol and drug abuser and schizophrenic. He has presented to this emergency room multiple times with altered mental status, suspected to be drug related. He has also had subdural hematomas in the past. Most recently admitted for 6 days in February. Discharge summary indicates that he was to follow-up with his primary care provider in [place] and begin receiving intramuscular injections of Zyprexa. The patient is unable to tell me whether he has seen his primary care doctor or whether he is receiving injections. Personnel familiar with his last inpatient visit state that the only medication that seemed to help his behavioral/psychiatric condition and agitation was intramuscular Zyprexa. He currently denies any pain. He knows his name, but does not know where he is or the date. He cannot tell me any specifics about why he is here. He denies current alcohol or drug use.." On my interview, patient made no eye contact, did not respond to verbal stimuli. followed no commands. Was awake but not responsive to external stimuli. Non verbal. He was in 4 point restraints with rhythmic flexing trying to get out of restraints. No Posturing or tonic/clonic spells. Hospital Course Hospital Course: Patient admitted to Medicine for man of pneumonia and urinary tract infection. Initiated on cefepime and vancomycin due to readmission last month with similar presentation and concern for healthcare acquired pneumonia. Prior to transfer to the floor patient became altered, combative, necessitating placement of restraints. He was initiated on Zyprexa with benefit after the first dose. Vision to treat Rexer was based on review of hospitalization were patient had no response to Haldol and Ativan combo, he responded to Zyprexa during that admission. Patient remained tachycardic and hypertensive. He unfortunately had concern for dystonic reaction after subsequent doses of Zyprexa. His second dose caused him to become more agitated, tachycardic, hypertensive. He was treated with which helped to relax him. Was not IV fluids due to his tachycardia as he had not received any IV fluids since admission. Received 2 1L boluses of lactated Ringer's with significant improvement in his tachycardia. As patient became more agitated during admission after being on the floor for greater than 8 hours, he received his third dose of Zyprexa causing him to become agitated yet again. It was at this time the patient was treated with a dose of Benadryl due to concern for dystonic reaction to agitation, myosis, and tachycardia and hypertension. Agitation/AMS: Patient has 2 feeding infections with urinary tract infection and pneumonia. Patient also has underlying psychiatric diagnosis of schizophrenia. Ammonia level checked normal. Electrolytes essentially normal. Able to perform EEG due to time of admission and limited resources. EEGs not performed during the weekend at our institution. Given patient's antipsychotics that he takes in the outpatient setting (quetiapine and olanzapine), along with baclofen and Flexeril, patient at risk for various syndromes including anticholinergic, ser otonin, dopaminergic, dystonic reactions. Patient's clinical picture is mixed with mental status, suspected urinary retention on admission, mild, tachycardia hypertension. Clinical picture did not fit neatly into single diagnosis. Early in admission, contacted for transfer due to concern that patient needs the services of neurology psychiatry pending his clinical improvement. As the services are not offered at [facility], [facility] contacted for [facility]. Patient for transfer by [facility]. Due to hemodynamic instability patient to be transferred to higher level of care (progressive care) for further management. Objective Vital signs: Temp Pulse Resp BP Pulse Ox 98.2 F 160 H 22 142/81 H 100 04/07/18 16:04 04/07/18 16:04 04/07/18 18:47 04/07/18 18:47 04/07/18 16:04 Narrative: - *Routine HEENT Exam Head: Present: normocephalic, atraumatic ENT: Present: mucous membranes moist Comments: Pupils pinpoint, reactive to light, poor dentition - *Routine Neck Exam Present: supple. Absent: JVD - *Routine Respiratory Exam Present: crackles. Absent: rales, wheezes Comments: Crackles right lower base - *Routine Cardiovascular Exam Present: Normal S1, Normal S2, tachycardia. Absent: murmur - *Routine Abdominal Exam Present: soft, normoactive bowel sounds - *Routine Rectal Exam Patient deferred: visual exam - *Routine Exam Comments: Dunham in place - *Routine Extremities Exam Absent: cyanosis, clubbing, edema - *Routine Skin Exam Present: intact, warm. Absent: cyanosis, erythema - *Routine Neurological Exam Present: altered mental status, normal tone. Absent: clonus, fasciculations, tremors Reflexes brisk, no cogwheeling. Not following hands or orienting to void. - Routine Psychiatric Exam Present: unable to assess. Results Labs on day of discharge: Labs from last 24 hours 04/07/18 04/07/18 04/07/18 18:11 16:18 10:12 WBC RBC Hgb Hct MCV MCH MCHC RDW Plt Count MPV Neut % (Auto) Lymph % (Auto) Nuckolls % (Auto) Eos % (Auto) Baso % (Auto) Neut # (Auto) Lymph # (Auto) Nuckolls # (Auto) Eos # (Auto) Baso # (Auto) Sodium Potassium Chloride Carbon Dioxide Anion Gap BUN Creatinine Estimated Creat Clear Estimated GFR Est GFR ( Amer) Glucose POC Glucose 111 H Lactate 1.7 Calcium Total Bilirubin AST ALT Alkaline Phosphatase Ammonia 10 L Total Creatine Kinase CK-MB (CK-2) CK-MB (CK-2) Rel Index Troponin I Total Protein Albumin Globulin Albumin/Globulin Ratio Urine Color Urine Appearance Urine pH Ur Specific Bishop Urine Protein Urine Glucose (UA) Urine Ketones Urine Blood Urine Nitrate Urine Bilirubin Urine Urobilinogen Ur Leukocyte Esterase Urine RBC Urine WBC Ur Squamous Epith Cells Urine Bacteria Urine Mucus Urine Opiates Screen Urine Methadone Screen Ur Barbituates Screen Ur Phencyclidine Scrn Ur Amphetamines Screen U Benzodiazepines Scrn Urine Cocaine Screen U Marijuana (THC) Screen Plasma/Serum Alcohol 04/07/18 04/07/18 04/07/18 09:50 08:57 08:55 WBC 12.1 H RBC 4.93 Hgb 15.6 Hct 47.6 MCV 96.5 H MCH 31.6 H MCHC 32.8 RDW 14.3 Plt Count 423 MPV 7.9 Neut % (Auto) 74.6 Lymph % (Auto) 16.7 Nuckolls % (Auto) 5.7 Eos % (Auto) 1.6 Baso % (Auto) 1.3 Neut # (Auto) 9.0 H Lymph # (Auto) 2.0 Nuckolls # (Auto) 0.7 Eos # (Auto) 0.2 Baso # (Auto) 0.2 Sodium 136 Potassium 4.8 Chloride 98 Carbon Dioxide 29 Anion Gap 13.8 BUN 10 Creatinine 1.28 Estimated Creat Clear 65 Estimated GFR 58 L Est GFR ( Amer) 70 Glucose 104 POC Glucose Lactate Calcium 9.5 Total Bilirubin 0.3 AST 8 L ALT 15 Alkaline Phosphatase 95 Ammonia Total Creatine Kinase 67 CK-MB (CK-2) 2.1 D CK-MB (CK-2) Rel Index 3.1 Troponin I < 0.02 Total Protein 7.5 Albumin 3.8 Globulin 3.7 H Albumin/Globulin Ratio 1.0 L Urine Color Yellow Urine Appearance Clear Urine pH 6.5 Ur Specific Bishop <= 1.005 Urine Protein Negative Urine Glucose (UA) Negative Urine Ketones Negative Urine Blood Trace-i Urine Nitrate Negative Urine Bilirubin Negative Urine Urobilinogen 0.2 Ur Leukocyte Esterase 2+ A Urine RBC Occasional Urine WBC 20-50 Ur Squamous Epith Cells 3-5 Urine Bacteria 1+ Urine Mucus Trace Urine Opiates Screen Urine Methadone Screen Ur Barbituates Screen Ur Phencyclidine Scrn Ur Amphetamines Screen U Benzodiazepines Scrn Urine Cocaine Screen U Marijuana (THC) Screen Plasma/Serum Alcohol 0 04/07/18 08:55 WBC RBC Hgb Hct MCV MCH MCHC RDW Plt Count MPV Neut % (Auto) Lymph % (Auto) Nuckolls % (Auto) Eos % (Auto) Baso % (Auto) Neut # (Auto) Lymph # (Auto) Nuckolls # (Auto) Eos # (Auto) Baso # (Auto) Sodium Potassium Chloride Carbon Dioxide Anion Gap BUN Creatinine Estimated Creat Clear Estimated GFR Est GFR ( Amer) Glucose POC Glucose Lactate Calcium Total Bilirubin AST ALT Alkaline Phosphatase Ammonia Total Creatine Kinase CK-MB (CK-2) CK-MB (CK-2) Rel Index Troponin I Total Protein Albumin Globulin Albumin/Globulin Ratio Urine Color Urine Appearance Urine pH Ur Specific Bishop Urine Protein Urine Glucose (UA) Urine Ketones Urine Blood Urine Nitrate Urine Bilirubin Urine Urobilinogen Ur Leukocyte Esterase Urine RBC Urine WBC Ur Squamous Epith Cells Urine Bacteria Urine Mucus Urine Opiates Screen Negative Urine Methadone Screen Negative Ur Barbituates Screen Negative Ur Phencyclidine Scrn Negative Ur Amphetamines Screen Negative U Benzodiazepines Scrn Negative Urine Cocaine Screen Negative U Marijuana (THC) Screen Negative Plasma/Serum Alcohol DS: Diagnosis - Discharge Diagnosis (1) Urinary tract infection Status: Acute (2) Altered mental status Status: Acute (3) Healthcare-associated pneumonia Status: Acute (4) Acute urinary retention Status: Acute Discharge Plan - Patient Discharge Instructions ACTIVITY: Bed rest DIET: continue same diet Patient Instructions: DI for Pneumonia -- Adult, DI for Urinary Tract Infection (UTI), DI for Altered Mental Status - Follow up Plan Disposition: Xfer Short-Term Hosp Home Medications: Home Medications Medication Instructions Recorded Confirmed Type Bisoprolol Fumarate [Zebeta 5mg 5 mg PO DAILY 09/07/17 04/07/18 History tablet] Isosorbide Mononitrate [Imdur 30mg 30 mg PO DAILY 09/07/17 04/07/18 History ER tablet] Prescriptions/Medication Reconciliation: New LORazepam [Ativan 2mg/mL vial] 1 mg IV Q6HP PRN vial PRN Reason: Agitation Quetiapine Fumarate [Seroquel 100mg Tablet] 100 mg PO HS tablet Cefepime HCl [Maxipime 2gm Vial] 2 gm IV Q12H vial Azithromycin [Zithromax 500mg ADV] 500 mg IV Q24H vial.port Vancomycin HCl [Vancomycin 1000mg Vial] 1,500 mg IV Q18H vial Continue Isosorbide Mononitrate [Imdur 30mg ER tablet] 30 mg PO DAILY Bisoprolol Fumarate [Zebeta 5mg tablet] 5 mg PO DAILY
== END 2018-04-07 22:45 | disposition short-term general hospital (02) ==
LOC: ER 08:20 → 2ND 08:20
PROVIDERS: ADMIT Internal Medicine Adolescent Medicine; ATTEND Internal Medicine Adolescent Medicine
DX: R41.82 Altered mental status, unspecified; R00.0 Tachycardia, unspecified; J18.9 Pneumonia, unspecified organism; I10 Essential (primary) hypertension; Z02.89 Encounter for other administrative examinations; Z72.0 Tobacco use; R33.8 Other retention of urine; Z88.0 Allergy status to penicillin; Z88.6 Allergy status to analgesic agent; F20.9 Schizophrenia, unspecified; Z88.8 Allergy status to other drugs, medicaments and biological substances; Z79.899 Other long term (current) drug therapy; N39.0 Urinary tract infection, site not specified; Z95.0 Presence of cardiac pacemaker
CPT/HCPCS: 36415; 70450; 71010; 71045; 80053; 80305; 81001; 82140; 82550; 82553; 82962; 83605; 84484; 85025; 87040; 87086; 87491; 87591; 93005; 96365; 96366; 96372; 96375; 96376; 99285; G0378; J1956; J3370

== ENCOUNTER 2018-06-06 19:43 | Observation (INO) | payer MEDICARE, MEDICAID, SELFPAY ==
[2018-06-06 19:44] VITALS: BP 125/79; PULSE 78; RESP 18; O2SAT 98; BMI 19.2
[2018-06-06 19:54] VITALS: PULSE 135; O2SAT 96
[2018-06-06 20:15] LABS: Basophils # 0.1 K/mm3 (0-0.2); Basophils % 0.7 % (0.1-2.0); Eosinophils # 0.2 K/mm3 (0.0-0.4); Eosinophils % 1.8 % (0.1-12.0); Hematocrit 45.9 % (42.0-52.0); Hemoglobin 15.5 g/dL (14.1-18.0); Lymphocytes # 1.7 K/mm3 (0.7-4.5); Lymphocytes % 18.6 % (10-50); Mean Corpuscular HGB Conc 33.7 g/dL (31.8-35.4); Mean Corpuscular Hemoglobin 32.2 pg (27.0-31.2); Mean Corpuscular Volume 95.6 fl (80-94); Mean Platelet Volume 8.6 fl (7.4-10.4); Monocytes # 0.6 K/mm3 (0.1-1.0); Monocytes % 6.5 % (1.7-9.3); Neutrophils # 6.5 K/mm3 (1.8-7.8); Neutrophils % 72.4 % (37.0-80.0); Platelet Count 243 K/mm3 (142-424); Red Cell Distribution Width 14.4 % (11.5-17.5)
[2018-06-06 20:36] LABS: Alanine Aminotransferase 16 U/L (12-78); Albumin/Globulin Ratio 1.1 (1.1-1.8); Alkaline Phosphatase 78 U/L (46-116); Anion Gap 15.1 mEq/L (5-15); Aspartate Amino Transferase 7 U/L (15-37); Bilirubin,Total 0.4 mg/dL (0.2-1.0); Blood Urea Nitrogen 12 mg/dL (7-18); Calcium 9.6 mg/dL (8.5-10.1); Carbon Dioxide 26 mmol/L (21.0-32.0); Chloride 102 mmol/L (98-107); Creatinine Clearance Estimated 57 mL/min (50-200); Creatinine,Serum 1.18 mg/dL (0.70-1.30); Estimated Glomerular Filt Rate 63 ml/min (>60); Ethyl Alcohol 0 mg/dL (0-99); GFR (African American) 77 ML/MIN (>60); Globulin 3.7 gm/dl (1.3-3.2); Glucose 101 mg/dL (74-106); Potassium 4.1 mmoL/L (3.5-5.1); Sodium 139 mmol/L (136-145); Total Protein,Serum 7.7 gm/dL (6.4-8.2)
[2018-06-06 20:43] VITALS: PULSE 154; O2SAT 98
--- NOTE | 2018-06-06 20:53 | PC.NURSE ---
pt placed 1x1
--- NOTE | 2018-06-06 21:30 | PC.NURSE ---
Pt still 1x1 with staff. pt at this time has mittens in place d/t attempting to rip his hair out. continues to be fairly agitated, but cooperative with staff at bedside. aware.
--- NOTE | 2018-06-06 21:36 | HMH.EDGENADL ---
ED Disposition Condition on Discharge: Serious - Critical Care Critical Care Time: Yes Total Critical Care Time: 40 Vital system(s) involved:: Central Nervous System My critical care processes included: Assessment & monitoring of V/S, Initial and Re-exams, Data Review/Interpretation, Coordinating Care, Medication Orders and management, Documentation <Shaka Stanford - Last Filed: 06/07/18 08:18> <Nahid Oseguera - Last Filed: 06/07/18 09:56> Clinical Impression: Acute delirium Disposition: Still a Patient Referrals: Provider,Referral, MD [Primary Care Provider] - Forms: Transfer Record - ED Attestation: On 06/06/18, the high probability of a clinically significant, sudden or life threatening deterioration of the following system(s) required my full and direct attention, intervention and personal management. The time I documented below is in addition to time spent performing reported procedures but includes the following listed in this critical care notation. Medical Decision Making - Karel Inquiry Pt receiving controlled substance: Yes Karel was queried for this patient: No Reason not queried -: Emergent pt cond-no time Risks and benefits of using a controlled substance: were not discussed with pt by me - Lab Data Result diagrams: 06/06/18 20:00 06/06/18 20:00 - CT Data CT Scan: Head, C-Spine Time Received: 03:[address] Reviewed: Yes: I have viewed the radiologist's interpretation - Physician Consults Physician Consulted: [facility] Time: 02:55 Reason -: Transfer to another facilty Comment/Response: On diversion, unable to accept Additional Consult: Prakash More Time: 03:15 Reason -: Transfer to another facilty Comment/Response: Refuses to accept patient for transfer because they do not have psychiatric services there. Additional [facility] Time: 03:31 Reason -: Transfer to another facilty Comment/Response: Declines to accept. Feels he would need ICU at their facility. Recommends speaking with their lunchroom worker. <Shaka Stanford - Last Filed: 06/07/18 08:18> - Lab Data Result diagrams: 06/06/18 20:00 06/06/18 20:00 - Restraint Evaluation Restraint Start Date: 06/07/18 Behavior Requiring Restraints: Banging Head, Kicking, Combative Type of restraints in use: Velcro Limb, Siderails Alternatives Attempted to Avoid Restraints: Medication Indications for removing restraints: Pt calm/oriented/alert, No longer combative, No signs of threat to others, No indication of self harm, No longer pulling tubes/lines Patient's current condition/response: agitated upon awakening Medical Behavior/Plan: Continue current protocol <Ana RosaNahid - Last Filed: 06/07/18 09:56> Vital Signs: 06/06/18 19:44 06/06/18 19:54 06/06/18 20:43 Temperature Temperature Source Oral Pulse Rate [Right Radial] 78 135 H 154 H Respiratory Rate 18 Blood Pressure [Right Arm] 125/79 Blood Pressure Mean [Right Arm] 94 Blood Pressure Source [Right Arm] Blood Pressure Position [Right Arm] 02 Sat by Pulse Oximetry 98 96 98 Oxygen Delivery Method Room Air Oxygen Flow Rate (LPM) 06/06/18 21:43 06/06/18 22:43 06/07/18 00:20 Temperature Temperature Source Pulse Rate [Right Radial] 145 H 164 H 153 H Respiratory Rate 18 Blood Pressure [Right Arm] 104/89 L Blood Pressure Mean [Right Arm] 94 Blood Pressure Source [Right Arm] Blood Pressure Position [Right Arm] 02 Sat by Pulse Oximetry 99 96 99 Oxygen Delivery Method Room Air Room Air Room Air Oxygen Flow Rate (LPM) 06/07/18 01:30 06/07/18 02:26 06/07/18 03:00 Temperature 98.1 F Temperature Source Temporal Artery Scan Pulse Rate [Right Radial] 154 H 148 H 145 H Respiratory Rate 19 17 Blood Pressure [Right Arm] 110/73 103/59 L 101/53 L Blood Pressure Mean [Right Arm] 85 73 69 Blood Pressure Source [Right Arm] Blood Pressure Position [Right Arm] 02 Sat by Pulse Oximetry 100 100 100 Oxyg
[2018-06-06 21:43] VITALS: PULSE 145; O2SAT 99
--- NOTE | 2018-06-06 22:30 | PC.NURSE ---
Pt remains 1x1 for his safety. asleep at this time
[2018-06-06 22:43] VITALS: PULSE 164; O2SAT 96
--- NOTE | 2018-06-06 23:14 | PC.NURSE ---
pt continues to attempt to pull mits off. pt is 1x1 with staff. pt now hollering at staff and being combative. notified.
[2018-06-07] VITALS (39 sets, daily range): BP systolic 84–152; BP diastolic 45–107; PULSE 109–154; RESP 16–22; TEMP 36.6–36.9; O2SAT 92–100; BMI 21.9
--- NOTE | 2018-06-07 00:01 | PC.NURSE ---
spoke to pharmacy as there is no olazipine im in the [facility]. connor in pharmacy stated she would come in to see if there was this medication available in the pharmacy unit.
--- NOTE | 2018-06-07 00:01 | PC.NURSE ---
pt still continues to be combative with staff and a danger to hisself.
--- NOTE | 2018-06-07 00:04 | PC.NURSE ---
ct scan delayed d/t patient behavior
--- NOTE | 2018-06-07 00:16 | PC.NURSE ---
pt has calmed down some, but is still attempting to get out of bed.
--- NOTE | 2018-06-07 00:22 | PC.NURSE ---
Per pharmacy, no IM or IV Olanzipine or Jono in houseMD speaking with pharmacy at this time.
--- NOTE | 2018-06-07 00:33 | PC.NURSE ---
pt continues to be restless and agitated. remains 1x1 with rn at bedside. md ordered 5mg IV haldol, given at this time. pt not answering questions at this time, or following commands.
--- NOTE | 2018-06-07 00:43 | CT_ITS ---
CT CERVICAL SPINE WITHOUT CONTRAST CT RECONSTRUCTIONS HISTORY:Fall with injury and pain ORDERING PHYSICIAN: Shaka Stanford MD PATIENT AGE: 58 years COMPARISON: None Technique: All CT scans at the facility use one or more dose reduction, viz: automated exposure control, ma/kV adjustment per patient size (including targeted exams where dose is matched to indication, i.e. head), or iterative reconstruction technique PROCEDURE: Axial spiral CT scanning performed of the cervical spine beginning at the base of the skull and continuing to the upper T-spine. 3-D multiplanar reconstruction with 3-D manipulation of volumetric data set in image rendering was completed by the radiologist and/or technologist with the supervision of the radiologist on independent workstation. FINDINGS: There is considerable motion artifact which does obscure fine detail. Suspicious especially prominent at the C2 level. There is mild cervical curvature convex right. No definite acute fracture or dislocation. There is degenerative disc disease at C4-C5 C5-C6 and C6-C7. There are paraseptal and centrilobular emphysematous changes in lung apices. IMPRESSION: 1. Limited evaluation due to motion artifact. Consider repeating exam pain persists 2. Normal alignment with no obvious acute fracture apparent. 3. Cervical spondylosis
--- NOTE | 2018-06-07 00:43 | CT_ITS ---
CT head/brain wo con HISTORY: Blunt trauma with contusion or hematoma, severe altered mental status, confusion, altered level consciousness ITS.REASON: head injury ORDERING PHYSICIAN: Shaka Stanford MD PATIENT AGE: 58 years COMPARISON: 05/09/2018 TECHNIQUE: Helical images obtained without contrast. Brain and bone windows reviewed. All CT scans at the facility use one or more dose reduction, viz: automated exposure control, ma/kV adjustment per patient size (including targeted exams where dose is matched to indication, i.e. head), or iterative reconstruction technique. FINDINGS: No midline shift, mass effect, intracranial hemorrhage, hydrocephalus, or extra-axial fluid collection is evident. The calvarium has an unremarkable appearance. No mastoid effusion. No sinus air-fluid levels.. IMPRESSION: No acute finding
--- NOTE | 2018-06-07 00:43 | PC.NURSE ---
md ordered another dose of ativan at this time. pt continues to fight and be agitated/worked up. md aware. md stated to attempt to perform ct of head, notified radiology
[2018-06-07 00:58] LABS: Magnesium 1.9 mg/dL (1.4-2.2)
--- NOTE | 2018-06-07 01:34 | PC.NURSE ---
pt still restless and agitated, still not verbally responding or following commands but is awake. staff remains at bedside 1x1
--- NOTE | 2018-06-07 01:41 | PC.NURSE ---
Pt transported to radiology accompanied with RN and Medic for patient/staff safety at this time.
--- NOTE | 2018-06-07 02:25 | PC.NURSE ---
Pt IV went bad while trying to move him from the CT bed back to the stretcher. New IV started at this time per Jono Roman. Pt returned back to room escorted by ER staff. Pt remains 1x1.
--- NOTE | 2018-06-07 02:42 | PC.NURSE ---
ct results received at this time
--- NOTE | 2018-06-07 02:43 | PC.NURSE ---
[facility] contacted at this time to attempt to get patient transferred to another facility.
--- NOTE | 2018-06-07 02:53 | PC.NURSE ---
[facility] stated they were on divert, and since patient was not surgical or trauma he could not be accepted at this time.
--- NOTE | 2018-06-07 02:55 | PC.NURSE ---
Contacting [facility] for possible transfer to [facility] at this time
--- NOTE | 2018-06-07 02:56 | PC.NURSE ---
[facility] stated they would have a physician/hospitalist contact us back.
[2018-06-07 02:59] LABS: Appearance,Urine CLEAR (Clear); Blood, Urine Negative (Negative); Color,Urine YELLOW (Yellow); Glucose,Urine (UA) Negative (Negative); Ketones,Urine TRACE (Negative); Leukocyte Esterase,Urine Negative (Negative); Microscopic, Urine URINE MICROSCOPIC (MICROSCOPIC); Nitrate,Urine Negative (Negative); Protein,Urine 1+ (Negative)
[2018-06-07 03:03] LABS: Bilirubin,Urine Negative (Negative)
--- NOTE | 2018-06-07 03:03 | PC.NURSE ---
Pt remains 1x1 - less agitated at this time, but still uncooperative with staff. Mitts remain in place
[2018-06-07 03:09] LABS: Amphetamine/Metha Screen,Urine Negative ng/mL (<1000); Barbiturates Screen,Urine Negative ng/mL (<200); Benzodiazepines Screen,Urine Negative ng/mL (<200); Cannabinoid Screen,Urine Negative ng/mL (<50); Cocaine Screen,Urine Negative ng/mL (<300); Methadone Screen,Urine Negative ng/mL (<300); Opiate Screen,Urine Negative ng/mL (<300); Phencyclidine Screen,Urine Negative ng/mL (<25)
--- NOTE | 2018-06-07 03:09 | PC.NURSE ---
Dr Stanford speaking with Dr Randall at this time from [facility]
--- NOTE | 2018-06-07 03:13 | PC.NURSE ---
[facility] declined admission.
--- NOTE | 2018-06-07 03:16 | PC.NURSE ---
[facility] contacted at this time for possible transfer.
[2018-06-07 03:17] LABS: Bacteria,Urine 1+ /lpf; Mucus,Urine 1+ /lpf
--- NOTE | 2018-06-07 03:45 | PC.NURSE ---
[facility] declined admission by two different physicians
--- NOTE | 2018-06-07 03:45 | PC.NURSE ---
Attempting to contact [facility] to place patient on a waitlist for a bed at this time per Dr Stanford request
--- NOTE | 2018-06-07 04:00 | PC.NURSE ---
at bedside to reassess need for restraint use. Pt is still restless and agitated, but MD stated to remove one lower limb restraint at this time to see how well patient tolerates. Pt is not as combative as he was earlier, but still poses a risk of harm to hisself.
--- NOTE | 2018-06-07 04:00 | PC.NURSE ---
Dr Stanford spoke to Dr Lugo with [facility] who agreed to accept patient to [facility], however there is a waitlist, which patient has been placed on. Pt at this time is still restless, but less combative with staff. Remains 1x1 with RN.
--- NOTE | 2018-06-07 05:00 | PC.NURSE ---
Pt remains 1x1, pt is no longer combative with staff but is still attempting to pull at catheter and iv tubing as well as still attempting to hit his head on the rail. PRN ativan to be given per SINDHU Peters. Will continue to monitor.
--- NOTE | 2018-06-07 06:00 | PC.NURSE ---
Pt remains 1x1 - pt is more calm at this time, stated if patient remains calm and cooperative, that restraints should be removed at 0800.
--- NOTE | 2018-06-07 06:57 | PC.NURSE ---
Pt appears to be resting well after most recent dose of PRN IV Ativan. Restraints removed at this time. aware.
--- NOTE | 2018-06-07 07:18 | PC.NURSE ---
Restraints reapplied by manager shift staff at shift change due to pt attempting climb out of bed again. Several attempts made at obtaining a blood pressure but pt will not relax long enough for cuff to be inflated on his arm to get v/s.
--- NOTE | 2018-06-07 07:20 | PC.NURSE ---
Received report from [facility]. pt is one-on-one at this time.
--- NOTE | 2018-06-07 07:25 | PC.NURSE ---
new order received for restraint re-initiation at 0800. restraints were previously removed at shift change, and it was attempted to leave off, however patient began to bang his head against the rail, attempt to get up and swing at staff. restraints were replaced and monitoring for restraints is continued.
--- NOTE | 2018-06-07 07:54 | PC.NURSE ---
at bedside, reassessment done at this time
--- NOTE | 2018-06-07 08:22 | PC.NURSE ---
Pt remains 1-1 at this time.
--- NOTE | 2018-06-07 09:00 | PC.NURSE ---
pt remains 1-on-1 with ob nurses assisting, sitting at bedside.
--- NOTE | 2018-06-07 10:18 | PC.NURSE ---
Spoke with case management for any other options for transfer and BJ suggested to call [facility] or [facility].
--- NOTE | 2018-06-07 10:19 | PC.NURSE ---
called and spoke with ayden at dr cast's office; informed we needed to speak with him regarding patient.
--- NOTE | 2018-06-07 10:40 | PC.NURSE ---
Increased agitation noted, ativan 2 mg IV given at this time per EMAR. Pt remains one on one with RN at bedside.
--- NOTE | 2018-06-07 12:30 | PC.NURSE ---
Unable to obtain BP during VS assessment related to increased agitation.
--- NOTE | 2018-06-07 12:52 | PC.NURSE ---
While MD at bedside, notified that BP has not been obtained for approx the past 30 min related to agitation, v/u.
--- NOTE | 2018-06-07 13:00 | PC.NURSE ---
3 attempts were made to read BP but due to patients agitation and constant movement of arms it was unable to be read. MD aware of issue.
--- NOTE | 2018-06-07 13:02 | PC.NURSE ---
Nurse Mansi John attempting to contact Dr. Worrell again at this time r/t possible admission of pt.
--- NOTE | 2018-06-07 13:30 | PC.NURSE ---
2nd RN at bedside to assist with getting BP. Due to patients agitation and movement was unable to get reading after 3 attempts.
--- NOTE | 2018-06-07 13:31 | PC.NURSE ---
speaking with Dr. Worrell
--- NOTE | 2018-06-07 14:04 | PC.NURSE ---
BP attempted, 2 RN at bedside. Unable to get reading due to patients agitation and movement of arm.
--- NOTE | 2018-06-07 14:34 | PC.NURSE ---
BP attempted 3 times with 2 RN at beside. Patient agitated and unable to stop from jerking arm. Unable to get BP reading at this time.
--- NOTE | 2018-06-07 14:42 | PC.NURSE ---
5mg of haldol given IM at this time due to patients increased agitation per EMAR.
--- NOTE | 2018-06-07 15:04 | PC.NURSE ---
Spoke with Case Management pt is to be admitted to Dr. Worrell to room 208 per change house attendant and be an observation admission
--- NOTE | 2018-06-07 15:11 | PC.NURSE ---
received call from [place] in registration. was told that someone would call and let us know when there was a bed ready for that patient. called [facility] and was advised that they do not have a bed physically ready and it would likely be a couple more hours before they could get one. they will advise when patient can come up.
--- NOTE | 2018-06-07 16:00 | PC.NURSE ---
took bilateral lower ankle restraints off, and attempted to leave off. patient immediately began thrashing legs around. zyprexa given per order.remains 1-on-1. replaced restraints. order renewed for restraints.
--- NOTE | 2018-06-07 16:34 | PC.NURSE ---
Pt remains one on one with RN at bedside. Pt sleeping soundly at this time, resps even and unlabored.
--- NOTE | 2018-06-07 16:55 | PC.NURSE ---
Called and spoke with Renae about bed assignment, she advised they were waiting on discharges and then would get the room clean and would let us know when the room would be ready.
--- NOTE | 2018-06-07 17:00 | PC.NURSE ---
Unable to obtain BP with VS assessment at this time related to increased agitation.
--- NOTE | 2018-06-07 17:01 | HMH.HP ---
*Admission Date: 06/07/18 *Chief complaint: change in mental status *History of present illness: this wm who is well known to me presented to ed -pt with no def hx of trauma or fever and no neuro sx H History I have reviewed the patient's past medical history: Yes Medical History: Reports:: Dementia, Internal Pacemaker Denies:: Cancer, Diabetes Mellitus Type 1, Diabetes Mellitus Type 2, MRSA *Have you ever received a pneumonia vaccine?: No *Have you received a flu vaccine this season?: No Other Medical History: Reports: Other (alcoholism, bipora disorder) Other Surgeries: Yes: Pacemaker Amputation: No Fractures: No - *Social History Smoking Status: Current every day smoker Tobacco Type: cigarettes # Packs/Day (cigarettes): 0 Alcohol Intake: never Alcohol Intake Frequency:: other Substance Use Type: denies use *Occupational Status:: disabled Housing: apartment Household Members: none *Travel in the last 8 weeks: None - Psychiatric History Expresses thoughts of harming self/others: None Suicide Plan Description: No Plan Family Hx:: Unable to obtain Review of Systems - Review of Systems Review of systems:: unable to obtain Meds Home Medications Medication Instructions Recorded Confirmed Type Bisoprolol Fumarate [Zebeta 5mg 5 mg PO DAILY 09/07/17 06/06/18 History tablet] Isosorbide Mononitrate [Imdur 30mg 30 mg PO DAILY 09/07/17 06/06/18 History ER tablet] Aspirin [Aspirin EC 325mg Tab] 325 mg PO DAILY 06/07/18 06/07/18 History Baclofen [Lioresal 10mg tablet] 10 mg PO BID 06/07/18 06/07/18 History Cyclobenzaprine HCl 5 mg PO Q8 06/07/18 06/07/18 History [Cyclobenzaprine 5mg Tab] Quetiapine Fumarate 100 mg PO DAILY 06/07/18 06/07/18 History Allergies Allergy/AdvReac Type Severity Reaction Status Date / Time codeine [CODEINE] Allergy Unknown Unknown Verified 06/06/18 19:50 allergy reaction meperidine [From DEMEROL] Allergy Unknown Unknown Verified 06/06/18 19:50 allergy reaction oxycodone [From PERCOCET] Allergy Unknown Unknown Verified 06/06/18 19:50 allergy reaction Penicillins [PENICILLINS] Allergy Unknown Unknown Verified 04/16/19 19:50 allergy reaction sertraline [From ZOLOFT] Allergy Unknown Unknown Verified 06/06/18 19:50 allergy reaction Exam Vital signs and Labs for Last 24 Hours: Temp Pulse Resp BP Pulse Ox 98 F 122 H 18 98/74 L 98 06/07/18 06:00 06/07/18 16:30 06/07/18 16:30 06/07/18 16:30 06/07/18 16:30 Laboratory Results - last 24 hr 06/06/18 20:00: WBC 9.0, RBC 4.80, Hgb 15.5, Hct 45.9, MCV 95.6 H, MCH 32.2 H, MCHC 33.7, RDW 14.4, Plt Count 243, MPV 8.6, Neut % (Auto) 72.4, Lymph % (Auto) 18.6, Kerr % (Auto) 6.5, Eos % (Auto) 1.8, Baso % (Auto) 0.7, Neut # (Auto) 6.5, Lymph # (Auto) 1.7, Kerr # (Auto) 0.6, Eos # (Auto) 0.2, Baso # (Auto) 0.1 06/06/18 20:00: Sodium 139, Potassium 4.1, Chloride 102, Carbon Dioxide 26, Anion Gap 15.1 H, BUN 12, Creatinine 1.18, Estimated Creat Clear 57, Estimated GFR 63, Est GFR ( Amer) 77, Glucose 101, Calcium 9.6, Total Bilirubin 0.4, AST 7 L, ALT 16, Alkaline Phosphatase 78, Total Protein 7.7, Albumin 4.0, Globulin 3.7 H, Albumin/Globulin Ratio 1.1, Plasma/Serum Alcohol 0 06/07/18 00:00: Magnesium 1.9 06/07/18 02:50: Urine Color Yellow, Urine Appearance Clear, Urine pH 6.0, Ur Specific Fishtail 1.020, Urine Protein 1+, Urine Glucose (UA) Negative, Urine Ketones Trace, Urine Blood Negative, Urine Nitrate Negative, Urine Bilirubin Negative, Urine Urobilinogen 1.0, Ur Leukocyte Esterase Negative, Urine RBC 3-5, Urine WBC 3-5, Urine Bacteria 1+, Urine Mucus 1+ 06/07/18 02:50: Urine Opiates Screen Negative, Urine Methadone Screen Negative, Ur Barbituates Screen Negative, Ur Phencyclidine Scrn Negative, Ur Amphetamines Screen Negative, U Benzodiazepines Scrn Negative, Urine Cocaine Screen Negative, U Marijuana (THC) Screen Negative I & O for Last 24 hours: Intake & Output
--- NOTE | 2018-06-07 17:30 | PC.NURSE ---
Unable to obtain BP during VS assessment after several tries related to increased agitation. RN remains at bedside with pt at this time, one on one.
--- NOTE | 2018-06-07 18:05 | PC.NURSE ---
Lab personnel at bedside.
[2018-06-07 18:12] LABS: Basophils # 0.1 K/mm3 (0-0.2); Basophils % 0.6 % (0.1-2.0); Eosinophils # 0.2 K/mm3 (0.0-0.4); Eosinophils % 1.4 % (0.1-12.0); Hematocrit 46.5 % (42.0-52.0); Hemoglobin 15.8 g/dL (14.1-18.0); Lymphocytes # 2.1 K/mm3 (0.7-4.5); Lymphocytes % 14.6 % (10-50); Mean Corpuscular HGB Conc 33.9 g/dL (31.8-35.4); Mean Corpuscular Hemoglobin 32.2 pg (27.0-31.2); Mean Corpuscular Volume 95.1 fl (80-94); Mean Platelet Volume 8.7 fl (7.4-10.4); Monocytes # 0.8 K/mm3 (0.1-1.0); Monocytes % 5.6 % (1.7-9.3); Neutrophils # 11.3 K/mm3 (1.8-7.8); Neutrophils % 77.7 % (37.0-80.0); Platelet Count 219 K/mm3 (142-424); Red Blood Count 4.89 M/mm3 (4.60-6.20); Red Cell Distribution Width 14.5 % (11.5-17.5); White Blood Count 14.6 K/mm3 (4.8-10.8)
[2018-06-07 18:19] LABS: Anion Gap 17.6 mEq/L (5-15); Blood Urea Nitrogen 11 mg/dL (7-18); Calcium 9.2 mg/dL (8.5-10.1); Carbon Dioxide 22 mmol/L (21.0-32.0); Chloride 106 mmol/L (98-107); Creatinine Clearance Estimated 59 mL/min (50-200); Creatinine,Serum 1.14 mg/dL (0.70-1.30); Estimated Glomerular Filt Rate 66 ml/min (>60); GFR (African American) 80 ML/MIN (>60); Glucose 86 mg/dL (74-106); Potassium 3.6 mmoL/L (3.5-5.1); Sodium 142 mmol/L (136-145)
--- NOTE | 2018-06-07 18:26 | PC.NURSE ---
Partial bed bath at this time by staff.
--- NOTE | 2018-06-07 19:01 | PC.NURSE ---
Report given to Chele Saul at this time.
--- NOTE | 2018-06-07 19:14 | PC.NURSE ---
Report received at this time from Rahul RN
--- NOTE | 2018-06-07 19:23 | PC.NURSE ---
report given to chase
--- NOTE | 2018-06-07 20:02 | PC.NURSE ---
ARRIVED TO FLOOR, PER TASHI, FROM ED @ 1951
--- NOTE | 2018-06-08 01:43 | PC.NURSE ---
RESTRAINT ASSESSMENT AT 2200. PT SOMEWHAT RESTLESS BUT CALM. DISCONTINUED 4 POINT RESTRAINT. PT CONTINUES TO BE A ONE ON ONE. STAFF MEMBER AT [facility]. WILL CONTINUE TO MONITOR PATIENTS BEHAVIOR.
--- NOTE | 2018-06-08 01:46 | PC.NURSE ---
PT CAME TO UNIT AROUND 1954 FROM ER. PT NONVERBAL, KEEPS EYES SHUT. PT IN 4 POINT RESTRAINTS PER ORDER. PT HAS MITTENS ON BILAT TO KEEP FROM PULLING AT LINES. MITTENS REMOVED. PARKER TO [facility] WITH MEDIUM YELLOW URINE NOTED. PT RESTLESS. PT A ONE ON ONE, STAFF MEMBER AT [facility]. WILL CONTINUE TO MONITOR.
[2018-06-08 04:30] VITALS: BP 101/71; PULSE 98; RESP 21; TEMP 36.8; O2SAT 96
[2018-06-08 05:00] VITALS: BMI 22.1
--- NOTE | 2018-06-08 06:21 | PC.NURSE ---
PT HAS SLEPT INTERMITTENTLY. GIVEN ATIVAN TIMES ONE FOR INCREASED RESTLESSNESS/AGITATION. LEFT MITTEN ON DUE TO PATIENT PULLING AT LINES. PT CONTINUES TO BE A ONE TO ONE. PT NPO. PT HAS SPOKEN A COUPLE WORDS THIS AM. CONTINUES TO KEEP EYES CLOSED. MOSTLY NONVERBAL, CONFUSED.
[2018-06-08 06:56] LABS: Basophils # 0.1 K/mm3 (0-0.2); Eosinophils # 0.3 K/mm3 (0.0-0.4); Eosinophils % 4.2 % (0.1-12.0); Hematocrit 45.3 % (42.0-52.0); Hemoglobin 15.3 g/dL (14.1-18.0); Lymphocytes # 1.9 K/mm3 (0.7-4.5); Lymphocytes % 24.4 % (10-50); Mean Corpuscular HGB Conc 33.8 g/dL (31.8-35.4); Mean Corpuscular Hemoglobin 32.2 pg (27.0-31.2); Mean Corpuscular Volume 95.3 fl (80-94); Mean Platelet Volume 9.1 fl (7.4-10.4); Monocytes # 0.7 K/mm3 (0.1-1.0); Monocytes % 8.6 % (1.7-9.3); Neutrophils # 4.9 K/mm3 (1.8-7.8); Neutrophils % 61.8 % (37.0-80.0); Platelet Count 198 K/mm3 (142-424); Red Blood Count 4.75 M/mm3 (4.60-6.20); Red Cell Distribution Width 14.5 % (11.5-17.5); White Blood Count 7.9 K/mm3 (4.8-10.8)
[2018-06-08 07:05] LABS: Anion Gap 13.5 mEq/L (5-15); Blood Urea Nitrogen 11 mg/dL (7-18); Carbon Dioxide 24 mmol/L (21.0-32.0); Chloride 108 mmol/L (98-107); Creatinine Clearance Estimated 65 mL/min (50-200); Creatinine,Serum 1.18 mg/dL (0.70-1.30); Estimated Glomerular Filt Rate 63 ml/min (>60); GFR (African American) 77 ML/MIN (>60); Glucose 92 mg/dL (74-106); Potassium 3.5 mmoL/L (3.5-5.1); Sodium 142 mmol/L (136-145)
--- NOTE | 2018-06-08 07:25 | PC.NURSE ---
REPORT GIVEN TO Josemanuel ALDANA
[2018-06-08 07:46] VITALS: BP 149/82; PULSE 111; RESP 20; TEMP 36.4; O2SAT 96
--- NOTE | 2018-06-08 09:27 | XR_ITS ---
XR chest portable HISTORY: Shortness of air ITS.REASON: soa ORDERING PHYSICIAN: Nahid Worrell MD PATIENT AGE: 58 years COMPARISON: 05/09/2018 FINDINGS: The cardiomediastinal silhouette and pulmonary vascularity are within normal limits. There are chronic interstitial changes. There is increased density in the right lower lobe consistent with underlying atelectasis or infiltrate.. There are old right-sided rib fractures No acute bony abnormalities. IMPRESSION: Chronic changes with right lower lobe atelectasis or infiltrate.
--- NOTE | 2018-06-08 09:31 | P.PN_ITS ---
Internal Medicine - PN: Subj *Date: 06/08/18 *Time: 09:29 Interval history: Today patient resting mitts in place able to answer questions. Exam Vital signs and Labs for Last 24 Hours: Temp Pulse Resp BP Pulse Ox 97.5 F L 111 H 20 149/82 H 96 06/08/18 07:46 06/08/18 07:46 06/08/18 07:46 06/08/18 07:46 06/08/18 07:46 Laboratory Results - last 24 hr 06/07/18 18:01: WBC 14.6 H D, RBC 4.89, Hgb 15.8, Hct 46.5, MCV 95.1 H, MCH 32.2 H, MCHC 33.9, RDW 14.5, Plt Count 219, MPV 8.7, Neut % (Auto) 77.7, Lymph % (Auto) 14.6, Hitchcock % (Auto) 5.6, Eos % (Auto) 1.4, Baso % (Auto) 0.6, Neut # (Auto) 11.3 H, Lymph # (Auto) 2.1, Hitchcock # (Auto) 0.8, Eos # (Auto) 0.2, Baso # (Auto) 0.1 06/07/18 18:01: Sodium 142, Potassium 3.6, Chloride 106, Carbon Dioxide 22, Anion Gap 17.6 H, BUN 11, Creatinine 1.14, Estimated Creat Clear 59, Estimated GFR 66, Est GFR ( Amer) 80, Glucose 86, Calcium 9.2 06/08/18 06:11: WBC 7.9 D, RBC 4.75, Hgb 15.3, Hct 45.3, MCV 95.3 H, MCH 32.2 H , MCHC 33.8, RDW 14.5, Plt Count 198, MPV 9.1, Neut % (Auto) 61.8, Lymph % (Auto) 24.4, Hitchcock % (Auto) 8.6, Eos % (Auto) 4.2, Baso % (Auto) 1.0, Neut # (Auto) 4.9, Lymph # (Auto) 1.9, Hitchcock # (Auto) 0.7, Eos # (Auto) 0.3, Baso # (Auto) 0.1 06/08/18 06:11: Sodium 142, Potassium 3.5, Chloride 108 H, Carbon Dioxide 24, Anion Gap 13.5, BUN 11, Creatinine 1.18, Estimated Creat Clear 65, Estimated GFR 63, Est GFR ( Amer) 77, Glucose 92, Calcium 9.0 I & O for Last 24 hours: Intake & Output 06/05/18 06/06/18 06/07/18 06/08/18 11:59 11:59 11:59 11:59 Intake Total 3974 / 3974 Output Total 1600 / 1600 Balance 2374 / 2374 Weight 130 lb 149 lb 6.4 oz - Constitutional no acute distress - *Routine HEENT Exam Head: Present: normocephalic Eye: Present: EOMI, PERRL ENT: Present: mucous membranes moist - *Routine Neck Exam Present: supple. Absent: lymphadenopathy - *Routine Respiratory Exam Present: CTA bilaterally - *Routine Cardiovascular Exam Present: RRR - *Routine Abdominal Exam Present: soft, normoactive bowel sounds. Absent: tenderness - *Routine Extremities Exam Absent: cyanosis, clubbing, edema Comments: mitts in place - *Routine Skin Exam Present: warm. Absent: rash - *Routine Neurological Exam Present: alert Assessment and Plan (1) Acute delirium Current visit: Yes Status: Acute Category: Medical Code(s): R41.0 - Disorientation, unspecified (2) Altered mental status Current visit: No Status: Acute Qualifiers: Altered mental status type: delirium Qualified Code(s): R41.0 - Disorientation, unspecified Category: Medical Code(s): R41.82 - Altered mental status, unspecified (3) Cervical spondylosis Current visit: Yes Status: Acute Category: Medical Code(s): M47.812 - Spondylosis without myelopathy or radiculopathy, cervical region - Assessment and plan all Dx Assessment and Plan for all problems:: Rounded with Dr. Worrell all orders per Anaid Consult Kenya Rodriguez for medication recommendations We will have caregiver meet here in the morning so we could discuss outpatient care.
--- NOTE | 2018-06-08 10:07 | HMH.PHAVTE ---
[facility] Pharmacy VTE Monitoring - Patient Demographics Admission date: 06/06/18 Report Date: 06/08/18 Time: 10:07 Allergies/Adverse Reactions: Patient Allergies codeine [CODEINE] Allergy (Unknown, Verified 06/06/18 19:50) Unknown allergy reaction meperidine [From DEMEROL] Allergy (Unknown, Verified 06/06/18 19:50) Unknown allergy reaction oxycodone [From PERCOCET] Allergy (Unknown, Verified 06/06/18 19:50) Unknown allergy reaction Penicillins [PENICILLINS] Allergy (Unknown, Verified 06/06/18 19:50) Unknown allergy reaction sertraline [From ZOLOFT] Allergy (Unknown, Verified 06/06/18 19:50) Unknown allergy reaction Height: 1.75 m Weight: 67.767 kg Patient Problems: Current Active Problems (Updated 06/08/18 @ 07:58 by Nahid Worrell MD) Acute delirium (Acute) Acute delirium (Acute) Cervical spondylosis (Acute) - VTE Risk Labs: VTE Related Lab Results Hgb 15.3 g/dL (14.1-18.0) 06/08/18 06:11 Hct 45.3 % (42.0-52.0) 06/08/18 06:11 Plt Count 198 K/mm3 (142-424) 06/08/18 06:11 BUN 11 mg/dL (7-18) 06/08/18 06:11 Creatinine 1.18 mg/dL (0.70-1.30) 06/08/18 06:11 Estimated Creat Clear 65 mL/min (50-200) 06/08/18 06:11 - Prophylaxis VTE Prophylaxis Ordered?: Yes Types of VTE Prophylaxis: TEDS Knee High Location of Applied Device: Bilateral Lower Extremeties - VTE Diagnosis Confirmed Treatment or plan recommended: Continue Current Treatment
--- NOTE | 2018-06-08 10:11 | HMH.PHAINT ---
MEDICATION RECONCILIATION COMPLETED ON PATIENT USING EXTERNAL FILL HISTORY FROM PHARMACY. -NICOLE VALLE, TOMASD
--- NOTE | 2018-06-08 10:33 | SW/DCPLANNER ---
Addendum entered by Annie Valentine 06/08/18 15:26: Lian from [facility] has stated that she currently has an open case on this patient and this will not have to be reported to Central Intake. Original Note: I have spoke with patients close friend (Deann Lu) this morning. Mr Lu has stated that he was contacted by [facility] yesterday to inform him that this patient is being admitted to [facility]. Mr Lu has stated that [facility]. I asked Mr Lu if he would be available to speak with this patient and MD in the AM and Mr Lu has stated he could not attend due to being at work tomorrow morning. I have spoke with Francesca this morning from [facility] and she has stated that this patient has been approved for everything and just needs a MD letter (she will contact Dr Worrells office). However Francesca has stated that this is still a two-three week process and it is NOT guaranteed at this time that this patient will even have a residential placement but is currently working to establish this plan for this patient. Francesca will follow up with me this afternoon regarding speaking with Dr Worrell regarding MD letter for this patient.
--- NOTE | 2018-06-08 13:31 | PC.NURSE ---
PT WAS ASKING FOR HIS GLASSES & WALLET. ROOM WAS CHECKED AND NOT SEEN. NURSE WAS NOTIFIED
--- NOTE | 2018-06-08 13:48 | PC.NURSE ---
PT UP IN CHAIR & AGITATED & ASKING TO GO HOME.PT PULLED IV TUBING APART. NURSE WAS NOTIFIED IMMEDIATLEY & IN ROOM AT THIS TIME.MITTS IN PLACE ON BOTH HANDS AT THIS TIME.
--- NOTE | 2018-06-08 14:27 | PC.NURSE ---
patient wanting to leave, stated he was leaving he wanted a sandwich, redirected patient that he is NPO diet. patient then asked for drugs.
--- NOTE | 2018-06-08 15:04 | PC.NURSE ---
both mitts on, patient told tech to suck him.
--- NOTE | 2018-06-08 15:11 | PC.NURSE ---
patient back in bed, asking for a kiss mitts on both hands
--- NOTE | 2018-06-08 15:33 | PC.NURSE ---
1345- Pt more agitated and wanting to get up out to bed to chair. Ativan 2mg IVP given for agitation. hand mitts in place to protect IV site. 1430- Pt continues to be agitated at times, wanting to get out of bed, go to the bathroom. Able to void without problems, small amount of dried blood on end of penis. 1500- Pt continues to be agitated at times, alternates between agitation and is drowsy and will sleep for short periods. 1522-Ativan 2mg IVP given for continued agitation, pt keeps saying he wants to eat. 1530- Spoke with Britta new order for CL diet and may advance if tolerated. 1535- Pt drank 180cc Leigh Mist, no difficulty swallowing.
--- NOTE | 2018-06-08 16:24 | PC.NURSE ---
Annel Zambrano with behavioral health here to see pt, states she will speak with RAFFAELE Vickers. Pt continues to be restless/agitated, up and down to chair and bathroom.
--- NOTE | 2018-06-08 17:00 | HMH.BHCONS ---
*Admission Date: 06/06/18 *Chief complaint: altered mental status *History of present illness: I was consulted to see Mr. Longo regarding altered mental status with a history in his chart of alcohol abuse as well as schizophrenia. I went to see him 2 different times today in his room. -the first time he refused to talk to me -he was sleeping when I went into his room and he did not say anything -I did ask him if he would talk to me and he repeated over and over 'no' I went back later in the day when his nurse called me. He was getting more and more agitated and she had to give him IV ativan. When I went up there the 2nd time; he was very agitated. he could not sit still; constantly up and down; from the bed to the chair; to laying down; to standing up; bending over in the floor. He was not talking coherently. I was able to understand what he was saying but it was not making sense to the conversation. -I asked him about any drinking -if he did drugs -he told the nurse earlier in his agitated state that he was looking for drugs -he never responded to me regarding this -he appears to be going through withdrawal of some sort -this could also be an acute delirium I called his attending; Britta Apple. At this time, my recommendations are to give him scheduled zyprexa 10mg oral; or IM if he refuses oral. To order blood work in the morning; including an ammonia level. -I will see him again tomorrow to try and do an assessment on him. -I was unable to get any useful information on him today. [facility] History Medical History: Reports:: Dementia, Hypertension, Internal Pacemaker Denies:: Cancer, Diabetes Mellitus Type 1, Diabetes Mellitus Type 2, MRSA *Have you ever received a pneumonia vaccine?: No (UNABLE TO OBTAIN ACCURATE INFO SECONDARY TO AMS) *Have you received a flu vaccine this season?: No (UNABLE TO OBTAIN ACCURATE INFO) Other Medical History: Reports: Other (alcoholism, bipora disorder) Other Surgeries: Yes: Pacemaker Amputation: No Fractures: No - *Social History Smoking Status: Unknown if ever smoked Tobacco Type: cigarettes # Packs/Day (cigarettes): 0 Alcohol Intake: current Alcohol Intake Frequency:: other Substance Use Type: unknown *Occupational Status:: disabled Housing: apartment Household Members: none *Travel in the last 8 weeks: None - Psychiatric History Expresses thoughts of harming self/others: None Suicide Plan Description: No Plan Family Hx:: Unable to obtain Meds Home Medications Medication Instructions Recorded Confirmed Type Bisoprolol Fumarate [Zebeta 5mg 5 mg PO DAILY 09/07/17 06/06/18 History tablet] Isosorbide Mononitrate [Imdur 30mg 30 mg PO DAILY 09/07/17 06/06/18 History ER tablet] Aspirin [Aspirin EC 325mg Tab] 325 mg PO DAILY 06/07/18 06/07/18 History Baclofen [Lioresal 10mg tablet] 10 mg PO TIDP PRN 06/07/18 06/08/18 History Cyclobenzaprine HCl 5 mg PO TIDP PRN 06/07/18 06/08/18 History [Cyclobenzaprine 5mg Tab] Quetiapine Fumarate 100 mg PO DAILY 06/07/18 06/07/18 History Allergies Allergy/AdvReac Type Severity Reaction Status Date / Time codeine [CODEINE] Allergy Unknown Unknown Verified 06/06/18 19:50 allergy reaction meperidine [From DEMEROL] Allergy Unknown Unknown Verified 06/06/18 19:50 allergy reaction oxycodone [From PERCOCET] Allergy Unknown Unknown Verified 06/06/18 19:50 allergy reaction Penicillins [PENICILLINS] Allergy Unknown Unknown Verified 06/06/18 19:50 allergy reaction sertraline [From ZOLOFT] Allergy Unknown Unknown Verified 06/06/18 19:50 allergy reaction Exam Vital signs and Labs for Last 24 Hours: Temp Pulse Resp BP Pulse Ox 97.5 F L 111 H 20 149/82 H 96 06/08/18 07:46 06/08/18 07:46 06/08/18 07:46 06/08/18 07:46 06/08/18 07:46 Laboratory Results - last 24 hr 06/07/18 18:01: WBC 14.6 H D, RBC 4.89, Hgb 15.8, Hct 46.5, MCV 95.1 H, MCH 32.2 H, MCHC 33.9, RDW 14.5, Plt
--- NOTE | 2018-06-08 17:01 | PC.NURSE ---
1700 Pt resting quietly in bed at this time.
--- NOTE | 2018-06-08 17:02 | SW/DCPLANNER ---
Patient information has been faxed to [facility]. [facility] phone: [phone] [facility] fax: [phone]
--- NOTE | 2018-06-08 17:05 | P.CONS_ITS ---
*Admission Date: 06/06/18 *Chief complaint: altered mental status *History of present illness: I was consulted to see Mr. Longo regarding altered mental status with a history in his chart of alcohol abuse as well as schizophrenia. I went to see him 2 different times today in his room. -the first time he refused to talk to me -he was sleeping when I went into his room and he did not say anything -I did ask him if he would talk to me and he repeated over and over 'no' I went back later in the day when his nurse called me. He was getting more and more agitated and she had to give him IV ativan. When I went up there the 2nd time; he was very agitated. he could not sit still; constantly up and down; f rom the bed to the chair; to laying down; to standing up; bending over in the floor. He was not talking coherently. I was able to understand what he was saying but it was not making sense to the conversation. -I asked him about any drinking -if he did drugs -he told the nurse earlier in his agitated state that he was looking for drugs -he never responded to me regarding this -he appears to be going through withdrawal of some sort -this could also be an acute delirium I called his attending; Britta Apple. At this time, my recommendations are to give him scheduled zyprexa 10mg oral; or IM if he refuses oral. To order blood work in the morning; including an ammonia level. -I will see him again tomorrow to try and do an assessment on him. -I was unable to get any useful information on him today. [facility] History Medical History: Reports:: Dementia, Hypertension, Internal Pacemaker Denies:: Cancer, Diabetes Mellitus Type 1, Diabetes Mellitus Type 2, MRSA *Have you ever received a pneumonia vaccine?: No (UNABLE TO OBTAIN ACCURATE INFO SECONDARY TO AMS) *Have you received a flu vaccine this season?: No (UNABLE TO OBTAIN ACCURATE INFO) Other Medical History: Reports: Other (alcoholism, bipora disorder) Other Surgeries: Yes: Pacemaker Amputation: No Fractures: No - *Social History Smoking Status: Unknown if ever smoked Tobacco Type: cigarettes # Packs/Day (cigarettes): 0 Alcohol Intake: current Alcohol Intake Frequency:: other Substance Use Type: unknown *Occupational Status:: disabled Housing: apartment Household Members: none *Travel in the last 8 weeks: None - Psychiatric History Expresses thoughts of harming self/others: None Suicide Plan Description: No Plan Family Hx:: Unable to obtain Meds Home Medications Medication Instructions Recorded Confirmed Type Bisoprolol Fumarate [Zebeta 5mg 5 mg PO DAILY 09/07/17 06/06/18 History tablet] Isosorbide Mononitrate [Imdur 30mg 30 mg PO DAILY 09/07/17 06/06/18 History ER tablet] Aspirin [Aspirin EC 325mg Tab] 325 mg PO DAILY 06/07/18 06/07/18 History Baclofen [Lioresal 10mg tablet] 10 mg PO TIDP PRN 06/07/18 06/08/18 History Cyclobenzaprine HCl 5 mg PO TIDP PRN 06/07/18 06/08/18 History [Cyclobenzaprine 5mg Tab] Quetiapine Fumarate 100 mg PO DAILY 06/07/18 06/07/18 History Allergies Allergy/AdvReac Type Severity Reaction Status Date / Time codeine [CODEINE] Allergy Unknown Unknown Verified 06/06/18 19:50 allergy reaction meperidine [From DEMEROL] Allergy Unknown Unknown Verified 06/06/18 19:50 allergy reaction oxycodone [From PERCOCET] Allergy Unknown Unknown Verified 06/06/18 19:50 allergy reaction
--- NOTE | 2018-06-08 18:03 | PC.NURSE ---
patient trying to climb out of bed, when redirected patient to lay back down, patient told tech to F You.
--- NOTE | 2018-06-08 18:29 | PC.NURSE ---
patient trying to get on all fours in the bed, turning back and forth, trying to climb out of bed.
--- NOTE | 2018-06-08 18:50 | PC.NURSE ---
1847- Ativan 2mg IVP given for agitation.
--- NOTE | 2018-06-08 19:15 | PC.NURSE ---
Pt all over the bed, taking blankets off, and moving constantly
--- NOTE | 2018-06-08 19:30 | PC.NURSE ---
Pt swinging legs out of the bed and swinging
--- NOTE | 2018-06-08 19:45 | PC.NURSE ---
pt still trying to get out of bed and swinging legs out of the bed, now is laying back down, rubbing mitts together
[2018-06-08 20:00] VITALS: BP 103/67; PULSE 85; RESP 18; TEMP 36.4; O2SAT 100
--- NOTE | 2018-06-08 20:02 | PC.NURSE ---
pt laying supine, rubbing his legs, trying to get mitts off
--- NOTE | 2018-06-08 20:20 | HMH.DCSUM ---
General - General Admission date:: 06/07/18 Discharge date: 06/08/18 HPI HPI: this wm who is well known to me presented to ed -pt with no def hx of trauma or fever and no neuro sx but has recurrent episodes of delerium and combative behavior - no def etoh hx and he is noncompliant with op treatment or meds Hospital Course Hospital Course: doing slightly better this am but still oriented to 1 and no restraints now but still restless - [facility] I was consulted to see Mr. Longo regarding altered mental status with a history in his chart of alcohol abuse as well as schizophrenia. I went to see him 2 different times today in his room. -the first time he refused to talk to me -he was sleeping when I went into his room and he did not say anything -I did ask him if he would talk to me and he repeated over and over 'no' I went back later in the day when his nurse called me. He was getting more and more agitated and she had to give him IV ativan. When I went up there the 2nd time; he was very agitated. he could not sit still; constantly up and down; from the bed to the chair; to laying down; to standing up; bending over in the floor. He was not talking coherently. I was able to understand what he was saying but it was not making sense to the conversation. -I asked him about any drinking -if he did drugs -he told the nurse earlier in his agitated state that he was looking for drugs -he never responded to me regarding this -he appears to be going through withdrawal of some sort -this could also be an acute delirium I called his attending; Britta Apple. At this time, my recommendations are to give him scheduled zyprexa 10mg oral; or IM if he refuses oral. To order blood work in the morning; including an ammonia level. -I will see him again tomorrow to try and do an assessment on him. -I was unable to get any useful information on him today. pt will need to be seen by [facility] and neuro and will be transfered Objective Vital signs: Temp Pulse Resp BP Pulse Ox 97.6 F 85 18 103/67 L 100 06/08/18 20:00 06/08/18 20:00 06/08/18 20:00 06/08/18 20:00 06/08/18 20:00 no acute distress - *Routine HEENT Exam Eye: Present: EOMI, PERRL. Absent: conjunctival icterus ENT: Present: mucous membranes dry - *Routine Neck Exam Absent: JVD - *Routine Respiratory Exam Absent: respiratory distress - *Routine Cardiovascular Exam Present: RRR - *Routine Extremities Exam Present: full ROM - *Routine Skin Exam Present: intact - *Routine Neurological Exam Present: altered mental status - Routine Psychiatric Exam Present: unable to assess Results Labs on day of discharge: Labs from last 24 hours 06/08/18 06/08/18 06:11 06:11 WBC 7.9 D RBC 4.75 Hgb 15.3 Hct 45.3 MCV 95.3 H MCH 32.2 H MCHC 33.8 RDW 14.5 Plt Count 198 MPV 9.1 Neut % (Auto) 61.8 Lymph % (Auto) 24.4 Jackson % (Auto) 8.6 Eos % (Auto) 4.2 Baso % (Auto) 1.0 Neut # (Auto) 4.9 Lymph # (Auto) 1.9 Jackson # (Auto) 0.7 Eos # (Auto) 0.3 Baso # (Auto) 0.1 Sodium 142 Potassium 3.5 Chloride 108 H Carbon Dioxide 24 Anion Gap 13.5 BUN 11 Creatinine 1.18 Estimated Creat Clear 65 Estimated GFR 63 Est GFR ( Amer) 77 Glucose 92 Calcium 9.0 DS: Diagnosis - Discharge Diagnosis (1) Acute delirium Status: Acute (2) Altered mental status Status: Acute (3) Cervical spondylosis Status: Acute Discharge Plan - Patient Discharge Instructions ACTIVITY: Continue current activity DIET: continue same diet Patient Instructions: Delirium - Follow up Plan Disposition: Xfer Short-Term Hosp Home Medications: Home Medications Medication Instructions Recorded Confirmed Type Bisoprolol Fumarate [Zebeta 5mg 5 mg PO DAILY 09/07/17 06/06/18 History tablet] Isosorbide Mononitrate [Imdur 30mg 30 mg PO DAILY 09/07/17 06/06/18 His
--- NOTE | 2018-06-08 20:23 | P.DS_ITS ---
General - General Admission date:: 06/07/18 Discharge date: 06/08/18 HPI HPI: this wm who is well known to me presented to ed -pt with no def hx of trauma or fever and no neuro sx but has recurrent episodes of delerium and combative behavior - no def etoh hx and he is noncompliant with op treatment or meds Hospital Course Hospital Course: doing slightly better this am but still oriented to 1 and no restraints now but still restless - [facility] I was consulted to see Mr. Longo regarding altered mental status with a history in his chart of alcohol abuse as well as schizophrenia. I went to see him 2 different times today in his room. -the first time he refused to talk to me -he was sleeping when I went into his room and he did not say anything -I did ask him if he would talk to me and he repeated over and over 'no' I went back later in the day when his nurse called me. He was getting more and more agitated and she had to give him IV ativan. When I went up there the 2nd time; he was very agitated. he could not sit still; constantly up and down; from the bed to the chair; to laying down; to standing up; bending over in the floor. He was not talking coherently. I was able to understand what he was saying but it was not making sense to the conversation. -I asked him about any drinking -if he did drugs -he told the nurse earlier in his agitated state that he was looking for drugs -he never responded to me regarding this -he appears to be going through withdrawal of some sort -this could also be an acute delirium I called his attending; Britta Apple. At this time, my recommendations are to give him scheduled zyprexa 10mg oral; or IM if he refuses oral. To order blood work in the morning; including an ammonia level. -I will see him again tomorrow to try and do an assessment on him. -I was unable to get any useful information on him today. pt will need to be seen by [facility] and neuro and will be transfered Objective Vital signs: Temp Pulse Resp BP Pulse Ox 97.6 F 85 18 103/67 L 100 06/08/18 20:00 06/08/18 20:00 06/08/18 20:00 06/08/18 20:00 06/08/18 20:00 no acute distress - *Routine HEENT Exam Eye: Present: EOMI, PERRL. Absent: conjunctival icterus ENT: Present: mucous membranes dry - *Routine Neck Exam Absent: JVD - *Routine Respiratory Exam Absent: respiratory distress - *Routine Cardiovascular Exam Present: RRR - *Routine Extremities Exam Present: full ROM - *Routine Skin Exam Present: intact - *Routine Neurological Exam Present: altered mental status - Routine Psychiatric Exam Present: unable to assess Results Labs on day of discharge: Labs from last 24 hours 06/08/18 06/08/18 06:11 06:11 WBC 7.9 D RBC 4.75 Hgb 15.3 Hct 45.3 MCV 95.3 H MCH 32.2 H MCHC 33.8 RDW 14.5 Plt Count 198 MPV 9.1 Neut % (Auto) 61.8 Lymph % (Auto) 24.4 Hancock % (Auto) 8.6 Eos % (Auto) 4.2 Baso % (Auto) 1.0 Neut # (Auto) 4.9 Lymph # (Auto) 1.9 [place] # (Auto) 0.7 Eos # (Auto) 0.3 Baso # (Auto) 0.1 Sodium 142 Potassium 3.5 Chloride 108 H Carbon Dioxide 24 Anion Gap 13.5
--- NOTE | 2018-06-08 20:30 | PC.NURSE ---
pt is supine, not moving as much, requested another pillow for under his head, second pillow placed under his head
--- NOTE | 2018-06-08 22:09 | PC.NURSE ---
1954- Cris from bed assignments with /[facility] called to state bed available for pt. RM 720 to [facility], Dr. Garcia is the accepting physician and Dr. Becerra is collection systems technician [facility] for admitting. Call report to [phone] when ready. 1999- Dr. Jasiel ramirez, who is covering for Dr. Reilly who is oncall for Dr. Worrell. 2001- S/W Dr. Weathers, who would like this RN to verify w/ pt's apron operator that pt still requires transfer. [facility]- S/W Dr. Worrell, who continues to wish pt transfer to accepting facility. Dr. Worrell stated he would place discharge in computer for pt. This RN notified Dr. Weathers to follow through with care & that Dr. Worrell would complete d/c for pt. 2025- S/W [facility] for transferring of pt to [facility], they will arrive in ~ 30min. Dr. Worrell called this RN to notify that d/c summary is complete. 2029- Called [facility] to give report, waited on hold for 8min & was told they would call back. 2044- Blas Killian @ [facility] returned call for report. Report given. 2108- ' on floor, transfer documents completed and chart given as well as report on pt to EMS staff. Pt is non-combative at this time but continues to be confused, uncooperative & moving around. Pt trying to get mitts off unsuccessfully, & brief successfully off. Pt's agitations increase with stimulation & blankets covering him. Mittens in place to bilat hands. GCS 9. Pt's clothes & shoes are with pt. Pt given Ativan 2mg IVP given per APR. 2125- Konrad & pt left floor & call placed to Blas @ [facility] to notify them that pt is on his way.
== END 2018-06-08 21:26 | disposition short-term general hospital (02) ==
LOC: ER 06-07 08:19 → 2ND 06-07 19:49
PROVIDERS: Emergency Medicine; Admitting Provider Emergency Medicine; Emergency Provider Emergency Medicine; Visit Provider Emergency Medicine
DX: R41.0 Disorientation, unspecified (principal); M47.812 Spondylosis without myelopathy or radiculopathy, cervical region; F20.9 Schizophrenia, unspecified; F10.20 Alcohol dependence, uncomplicated; Z79.82 Long term (current) use of aspirin; Z79.899 Other long term (current) drug therapy; Z88.6 Allergy status to analgesic agent; Z88.0 Allergy status to penicillin; Z88.8 Allergy status to other drugs, medicaments and biological substances; Z72.0 Tobacco use; Z95.0 Presence of cardiac pacemaker; F31.9 Bipolar disorder, unspecified; Z78.1 Physical restraint status; R45.6 Violent behavior
CPT/HCPCS: 36415; 70450; 71045; 72125; 80048; 80053; 80305; 81001; 83735; 85025; 87086; 93005; 96365; 96367; 96372; 96375; 96376; 99291; G0378

== ENCOUNTER 2018-06-28 04:08 | Observation (INO) ==
--- NOTE | 2018-06-28 08:13 | Emergency Department Note ---
ED Disposition Clinical Impression: Encephalopathy Schizophrenia Qualifiers: Schizophrenia type: unspecified Qualified Code(s): F20.9 - Schizophrenia, unspecified Disposition: Admitted As Inpatient Condition on Discharge: Serious Referrals: Provider,Referral, [Primary Care Provider] - - Critical Care Critical Care Time: Yes Attestation: On 06/28/18, the high probability of a clinically significant, sudden or life threatening deterioration of the following system(s) required my full and direct attention, intervention and personal management. The time I documented below is in addition to time spent performing reported procedures but includes the following listed in this critical care notation. Total Critical Care Time: 90 Vital system(s) involved:: Central Nervous System My critical care processes included: Assessment & monitoring of V/S, Initial and Re-exams, Data Review/Interpretation, Coordinating Care, Medication Orders and management, Documentation Medical Decision Making - Karel Inquiry Pt receiving controlled substance: Yes Karel was queried for this patient: No Reason not queried -: Emergent pt cond-no time Risks and benefits of using a controlled substance: were not discussed with pt by me Vital Signs: 06/28/18 04:09 06/28/18 04:38 06/28/18 07:08 Temperature 98.9 F Temperature Source Oral Pulse Rate [Right Brachial] 84 83 78 Respiratory Rate 15 18 Blood Pressure [Right Arm] 135/74 105/81 L 136/78 Blood Pressure Mean [Right Arm] 94 89 97 Blood Pressure Source [Right Arm] Automatic Cuff Blood Pressure Position [Right Arm] Sitting 02 Sat by Pulse Oximetry 98 98 96 Oxygen Delivery Method Room Air Oxygen Flow Rate (LPM) 06/28/18 07:52 06/28/18 08:51 06/28/18 09:00 Temperature Temperature Source Pulse Rate [Right Brachial] 79 71 84 Respiratory Rate 22 16 Blood Pressure [Right Arm] 140/75 144/81 H 132/71 Blood Pressure Mean [Right Arm] 96 102 91 Blood Pressure Source [Right Arm] Automatic Cuff Automatic Cuff Automatic Cuff Blood Pressure Position [Right Arm] Sitting Sitting Sitting 02 Sat by Pulse Oximetry 98 98 98 Oxygen Delivery Method Room Air Room Air Room Air Oxygen Flow Rate (LPM) 06/28/18 09:56 06/28/18 11:12 06/28/18 11:36 Temperature Temperature Source Pulse Rate [Right Brachial] 84 124 H 130 H Respiratory Rate Blood Pressure [Right Arm] 131/71 132/81 120/68 Blood Pressure Mean [Right Arm] 91 98 85 Blood Pressure Source [Right Arm] Automatic Cuff Automatic Cuff Blood Pressure Position [Right Arm] Supine Supine 02 Sat by Pulse Oximetry 98 97 97 Oxygen Delivery Method Room Air Room Air Oxygen Flow Rate (LPM) 06/28/18 11:40 06/28/18 12:12 06/28/18 12:20 Temperature 99.4 F Temperature Source Rectal Pulse Rate [Right Brachial] 146 H 143 H 139 H Respiratory Rate Blood Pressure [Right Arm] 115/75 130/77 Blood Pressure Mean [Right Arm] 88 94 Blood Pressure Source [Right Arm] Automatic Cuff Blood Pressure Position [Right Arm] Supine 02 Sat by Pulse Oximetry 97 97 95 Oxygen Delivery Method Room Air Room Air Oxygen Flow Rate (LPM) 06/28/18 12:44 06/28/18 13:10 06/28/18 13:20 Temperature Temperature Source Pulse Rate [Right Brachial] 135 H 120 H 105 H Respiratory Rate 16 16 Blood Pressure [Right Arm] 104/83 L 111/81 124/70 Blood Pressure Mean [Right Arm] 90 91 88 Blood Pressure Source [Right Arm] Automatic Cuff Automatic Cuff Blood Pressure Position [Right Arm] Sitting Sitting 02 Sat by Pulse Oximetry 96 97 95 Oxygen Delivery Method Nasal Cannula Nasal Cannula Oxygen Flow Rate (LPM) 2 2 06/28/18 13:55 06/28/18 14:13 06/28/18 14:45 Temperature Temperature Source Pulse Rate [Right Brachial] 149 H 140 H 145 H Respiratory Rate 17 Blood Pressure [Right Arm] 123/71 118/62 Blood Pressure Mean [Right Arm] 88 80 Blood Pressure Source [Right Arm] Automatic Cuff Automatic Cuff Blood Pressure Position [Right Arm] Sitting Sitting 02 Sat by Pulse Oximetry 98 98 93 L Oxygen Delivery Method Nasal Cannula Oxygen Flow Rate (LPM) 2 06/28/18 15:06 06/28/18 15:07 06/28/18 15:44 Temperature Temperature Source Pulse Rate [Right Brachial] 146 H 136 H 142 H Respiratory Rate Blood Pressure [Right Arm] 90/56 L 181/88 H 168/131 H Blood Pressure Mean [Right Arm] 67 119 143 Blood Pressure Source [Right Arm] Automatic Cuff Automatic Cuff Blood Pressure Position [Right Arm] Supine Supine 02 Sat by Pulse Oximetry 96 95 96 Oxygen Delivery Method Room Air Oxygen Flow Rate (LPM) 06/28/18 16:10 06/28/18 16:37 Temperature Temperature Source Pulse Rate [Right Brachial] 139 H 147 H Respiratory Rate Blood Pressure [Right Arm] 115/66 162/82 H Blood Pressure Mean [Right Arm] 82 108 Blood Pressure Source [Right Arm] Blood Pressure Position [Right Arm] 02 Sat by Pulse Oximetry 97 95 Oxygen Delivery Method Oxygen Flow Rate (LPM) - Lab Data Lab Results 06/28/18 09:08: Troponin I < 0.02, Plasma/Serum Alcohol 0 06/28/18 09:08: WBC 13.8 H, RBC 5.02, Hgb 15.8, Hct 48.1, MCV 95.8 H, MCH 31.5 H , MCHC 32.8, RDW 13.8, Plt Count 372, MPV 8.2, Neut % (Auto) 80.2 H, Lymph % (Auto) 13.3, [place] % (Auto) 4.8, Eos % (Auto) 1.1, Baso % (Auto) 0.6, Neut # (Auto) 11.1 H, Lymph # (Auto) 1.8, [place] # (Auto) 0.7, Eos # (Auto) 0.2, Baso # (Auto) 0.1 06/28/18 09:08: Sodium 139, Potassium 3.5, Chloride 100, Carbon Dioxide 28, [place] 14.5, BUN 10, Creatinine 1.17, Estimated Creat Clear 57, Estimated GFR 64, Est GFR ( Amer) 77, Glucose 96, Calcium 9.4, Total Bilirubin 0.5, AST 10 L, ALT 18, Alkaline Phosphatase 97, Total Protein 8.3 H, Albumin 4.4, Globu axel 3.9 H, Albumin/Globulin Ratio 1.1, Amylase 57, Lipase 110 06/28/18 09:49: Urine Color Yellow, Urine Appearance Clear, Urine pH 7.0, Ur Specific [place] 1.010, Urine Protein Trace, Urine Glucose (UA) Negative, Urine Ketones Negative, Urine Blood Trace-l, Urine Nitrate Negative, Urine Bilirubin Negative, Urine Urobilinogen 0.2, Ur Leukocyte Esterase Negative, Urine RBC 3-5, Urine WBC 5-10, Urine Bacteria Trace, Urine Mucus Trace 06/28/18 09:49: Urine Opiates Screen Negative, Urine Methadone Screen Negative, Ur Barbituates Screen Negative, Ur Phencyclidine Scrn Negative, Ur Amphetamines Screen Negative, U Benzodiazepines Scrn Negative, Urine Cocaine Screen Negative, U Marijuana (THC) Screen Negative 06/28/18 11:00: Lactate 5.0 H 06/28/18 15:30: Lactate 2.5 H Result diagrams: 06/28/18 09:08 06/28/18 09:08 Orders (Tests/Meds): ED MEDICATIONS Generic Name Dose Route Start Last Admin Trade Name Margy PRN Reason Stop Dose Admin Cefepime HCl 2 gm/ Sodium 100 mls @ 100 mls/hr 06/28/18 11:15 06/28/18 11:31 Chloride IV 07/12/18 11:14 100 mls/hr Q12 KASH Administration Protocol Levofloxacin/Dextrose 750 mg in 150 mls @ 100 mls/hr 06/28/18 11:00 06/28/18 12:25 Levofloxacin 750mg/150ml Premix IV 07/12/18 10:59 100 mls/hr Q24H KASH Administration Protocol Vancomycin HCl 1,000 mg/ 250 mls @ 125 mls/hr 06/28/18 13:00 06/28/18 14:07 Sodium Chloride IV 07/12/18 12:59 125 mls/hr Q18H KASH Administration Discontinued Medications Generic Name Dose Route Start Last Admin Trade Name Margy PRN Reason Stop Dose Admin Acetaminophen 650 mg 06/28/18 04:55 06/28/18 05:00 Acetaminophen 325mg Tab PO 06/28/18 04:56 Not Given ONCE ONE Haloperidol Lactate 5 mg 06/28/18 08:06 06/28/18 08:21 Haldol 5mg/Ml Vial IM 06/28/18 08:07 Not Given ONCE ONE Haloperidol Lactate 5 mg 06/28/18 09:18 06/28/18 09:29 Haldol 5mg/Ml Vial IM 06/28/18 09:19 5 mg ONCE ONE Administration Sodium Chloride 1,000 mls @ 150 mls/hr 06/28/18 11:15 06/28/18 11:34 Sod Chlor 0.9% 1000ml Bag IV 07/28/18 11:14 150 mls/hr .Q6H40M KASH Administration Sodium Chloride 1,000 mls @ 999 mls/hr 06/28/18 11:45 06/28/18 13:30 Sod Chlor 0.9% 1000ml Bag IV 06/28/18 13:45 999 mls/hr .Q1H1M KASH Administration Sodium Chloride 1,000 mls @ 999 mls/hr 06/28/18 11:45 06/28/18 14:07 Sod Chlor 0.9% 1000ml Bag IV 06/28/18 12:31 Not Given .Q1H1M KASH Sodium Chloride 1,000 mls @ 999 mls/hr 06/28/18 14:15 Sod Chlor 0.9% 1000ml Bag IV 06/28/18 15:15 .Q1H1M KASH Sodium Chloride 1,000 mls @ 999 mls/hr 06/28/18 12:15 06/28/18 13:10 Sod Chlor 0.9% 1000ml Bag IV 06/28/18 13:15 770 mls/hr .Q1H1M KASH Administration Sodium Chloride 1,000 mls @ 999 mls/hr 06/28/18 14:15 06/28/18 14:16 Sod Chlor 0.9% 1000ml Bag IV 06/28/18 15:15 Not Given .Q1H1M KASH Ioversol 75 ml 06/28/18 13:36 06/28/18 13:38 Rad-Optiray 350 100ml Vial IV 06/28/18 13:37 75 ml ONCE ONE Administration Protocol Ioversol 75 ml 06/28/18 13:37 Rad-Optiray 350 100ml Vial IV 06/28/18 13:38 ONCE ONE Protocol Ketamine HCl 30 mg 06/28/18 12:50 06/28/18 13:09 Ketamine 500mg/10ml Vial IV 06/28/18 12:51 30 mg ONCE ONE Administration Lorazepam 2 mg 06/28/18 08:06 06/28/18 08:33 Ativan 2mg/Ml Vial IM 06/28/18 08:07 2 mg ONCE ONE Administration Lorazepam 1 mg 06/28/18 10:38 06/28/18 10:39 Ativan 2mg/Ml Vial IV 06/28/18 10:39 1 mg ONCE ONE Administration Lorazepam 1 mg 06/28/18 11:15 06/28/18 11:34 Ativan 2mg/Ml Vial IV 06/28/18 11:16 1 mg ONCE ONE Administration Lorazepam 1 mg 06/28/18 12:14 06/28/18 12:14 Ativan 2mg/Ml Vial IV 06/28/18 12:15 1 mg ONCE ONE Administration Lorazepam 1 mg 06/28/18 14:15 06/28/18 14:16 Ativan 2mg/Ml Vial IV 06/28/18 14:16 1 mg ONCE ONE Administration Miscellaneous 1 each 06/28/18 11:15 06/28/18 12:17 Vancomycin Consult Request NOTAPPLIC 07/28/18 11:14 1 each CONSULT PHARMACY KASH Administration Olanzapine 10 mg 06/28/18 08:18 06/28/18 15:08 Zyprexa 10mg Vial IM 10 mg Q2HP PRN Administration Agitation Olanzapine 10 mg 06/28/18 10:40 Zyprexa 10mg Vial IM Q2HP PRN Agitation Olanzapine 10 mg 06/28/18 14:55 Zyprexa 10mg Vial IM Q2HP PRN Agitation Sodium Chloride 10 ml 06/28/18 13:36 06/28/18 13:38 Rad-Saline Flush 10ml Syringe IV 06/28/18 13:37 10 ml ONCE ONE Administration Sodium Chloride 10 ml 06/28/18 13:37 Rad-Saline Flush 10ml Syringe IV 06/28/18 13:38 ONCE ONE ORDERS Category Date Time Status Blood Culture Stat Micro 06/28/18 10:47 Received - Radiology Data #1 Image(s): Chest Image Reviewed: Yes I reviewed the patient's radiology image, Yes I have reviewed radiologist's interpretation IMPRESSION: Chronic changes with superimposed atelectasis or infiltrate in the right lung base Dictated By: Austen Irvin MD Signed By: <Electronically signed by Austen Irvin MD in OV> 06/28/18 0901 - CT Data CT Scan: Head, Abdomen, Pelvis Time Received: 10:[address] Reviewed: Yes: I have viewed the radiologist's interpretation Findings Narrative: Head: IMPRESSION: No acute finding Dictated By: Austen Irvin MD Signed By: <Electronically signed by Austen Irvin MD in OV> 06/28/18 1042 2:10 PM: Abdomen/Pelvis: FINDINGS: The lung bases are clear. The most inner aspect of the left lower lobe and superior aspect of the spleen and hemidiaphragm and gastric fundus are not included in the exam. Visualized portion of the spleen has an unremarkable appearance. The liver, gallbladder, adrenal glands, pancreas, and kidneys have an unremarkable appearance. No renal or ureteral calculi. There is a small focal hernia which contains fat. There is generalized motion artifact which does somewhat obscure fine detail. Dunham catheter is present with a small amount of gas in the urinary bladder. Unremarkable appendix. No intestinal obstruction or free air. There is a mild amount of retained colonic feces. There is diverticulosis of the sigmoid colon but no evidence of diverticulitis. No acute bony anomalies are evident. IMPRESSION: No acute finding. LIMITATIONS as described above. Dictated By: Austen Irvin MD Signed By: <Electronically signed by Austen Irvin MD in OV> 06/28/18 2500 - ECG Data Tracing #1 EKG interpreted by Shaka Stanford MD: Rhythm: sinus Rate: 91 [place]: normal Ectopy: none Conduction: normal ST Segment Changes: Nonspecific T Wave Changes: Nonspecific Q Waves: none Poor R wave progression Prior electrocardiagrams reviewed. No change from prior tracings. - Physician Consults Physician Consulted: Jose Alfredo [facility]TM[facility] ER Time: 14:42 Reason -: Transfer to another facilty Comment/Response: Cannot accept transfer, emergency department is on divert. Additional Consult: Israel BOYLE Attending Hospitalist Time: 14:52 Reason -: Transfer to another facilty Comment/Response: Discussed the case with him in hopes that we could put Mr. stone on a waiting list for transfer, he says he cannot even accept him on a waiting list because half of the emergency department is full of patients that are being boarded. Hospital is completely full. Additional Consult: Ibrahima Time: 15:20 Reason -: Admission Comment/Response: Prefers that we exhaust all possibilities for transfer. If unsuccessful call him back. Other Consultation(s): 1555: Raul neurology [facility]: Discussed case. She is willing to accept the patient, however, there are no beds available at [facility] and he will be put on a wait list. There are no imminent discharges. She requests that any useful records from [facility] portably sent with him. She prefers any neurology consultations, MRI scans, lumbar puncture results, EEG results. On [facility] portal I was able to find EEG results x2, and neurology consultations. I did not find any MRI scans, apparently these have been avoided due to the fact that he has a defibrillator. I did not find any lumbar puncture results. Copies will be added to the patient's record here. 4:40 PM: Ibrahima: Agrees to admit the patient to the hospital. We discussed the patient's clinical information, including history, exam, laboratory and radiology results and ED course. Per hospital procedure, I will write temporary bridge inpatient orders on the patient. Specific orders requested by the admitting physician: Intravenous Haldol and Ativan as needed Medical Decision Narrative: Review of records shows that he was admitted here on 06/07/2018 after presenting with delirium. [facility] was initially on diversion, so he was admitted here pending availability of bed. Eventually was transferred to [facility] and it appears his final diagnosis was encephalopathy. 8:30 AM: Nurses report patient is repeatedly c/o abdominal pain. 2:25 PM: Discussed abdominal CT/chest x-ray with Dr. Irvin. Chest x-ray was read by him as showing possible infiltrate or atelectasis in the right lower lobe. CT scan interpretation by him was that the lung bases were clear. He has reviewed and says that the CT scan covers the area in question on the chest x- ray and looks clear, therefore he will put in an addendum that there is no pneumonia. General Adult HPI - General Chief complaint: Altered Mental Status Stated complaint: confusion Time Seen by Provider: 06/28/18 08:00 Mode of Arrival: EMS Limitations: No Limitations Description of Symptoms (Recalled from ER Triage Doc. by RN): brought back in by ems after jose allen was notified of patient roaming the street. pt was seen in ed earlier this shift, and appeared to be at his baseline, and left without being seen. pt is verbal and answering questions at this time. - History of Present Illness HPI narrative: The patient is known to me from previous emergency department visits. He repeatedly presents with acute encephalopathy/delirium of uncertain etiology. He is repeatedly transferred to [facility] and apparently returns to being coherent after a few days. However, in his state of delirium he is very difficult to control and generally requires restraints and sedation and is beyond the capability of this hospital's care. He was reportedly brought into this emergency department last night around midnight and "left AMA". He was then found earlier this morning by police wandering the streets and was brought back in. He was acutely confused. He has a known history of schizophrenia. Drug and/or alcohol use has not been documented during any of his episodes. Apparently has physicians in [facility]. He is reportedly noncompliant with his outpatient treatment. 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 - Related Data Home Medications Medication Instructions Recorded Confirmed Bisoprolol Fumarate [Zebeta 5mg 5 mg PO DAILY 09/07/17 06/28/18 tablet] Isosorbide Mononitrate [Imdur 30mg 30 mg PO DAILY 09/07/17 06/28/18 ER tablet] Aspirin [Aspirin EC 325mg Tab] 325 mg PO DAILY 06/07/18 06/28/18 Baclofen [Lioresal 10mg tablet] 10 mg PO TIDP PRN 06/07/18 06/28/18 Cyclobenzaprine HCl 5 mg PO TIDP PRN 06/07/18 06/28/18 [Cyclobenzaprine 5mg Tab] Quetiapine Fumarate 100 mg PO DAILY 06/07/18 06/28/18 Allergies Allergy/AdvReac Type Severity Reaction Status Date / Time codeine [CODEINE] Allergy Unknown Unknown Verified 06/06/18 19:50 allergy reaction meperidine [From DEMEROL] Allergy Unknown Unknown Verified 06/06/18 19:50 allergy reaction oxycodone [From PERCOCET] Allergy Unknown Unknown Verified 06/06/18 19:50 allergy reaction Penicillins [PENICILLINS] Allergy Unknown Unknown Verified 06/06/18 19:50 allergy reaction sertraline [From ZOLOFT] Allergy Unknown Unknown Verified 06/06/18 19:50 allergy reaction [facility] History - Hepatitis A Screen Drug use history?: No High risk sexual behaviors?: No History of sexually transmitted infection?: No Currently employed?: No Childcare worker?: No Do you have indoor plumbing?: No Do you have electricity?: No Attestation statement:: This patient has been screened for Hepatitis A risk factors. I have reviewed the patient's past medical history: Yes Medical History: Reports:: Dementia, Hypertension, Internal Pacemaker Denies:: Cancer, Diabetes Mellitus Type 1, Diabetes Mellitus Type 2, MRSA Other Medical History: Reports: Other (alcoholism, bipora disorder) Comment: Heart disease Other Surgeries: Yes: Pacemaker Amputation: No Fractures: No - Social History Smoking Status: Unknown if ever smoked Tobacco Type: cigarettes # Packs/Day (cigarettes): 0 Alcohol Intake: never Alcohol Intake Frequency:: other Substance Use Type: unknown Occupational Status: disabled Housing: apartment Household Members: none - Psychiatric History Expresses thoughts of harming self/others: None Suicide Plan Description: No Plan Family Hx:: Unable to obtain ROS Obtained: Yes unobtainable due to mental status, Yes unobtainable due to mental condition Physical Exam - General General appearance: other Comment: Restless and anxious appearing. Pacing. Confused and disoriented. He knows his name. He does not know where he is. He is disoriented to time. When asked if he has any pain, he repeats his name. When asked if he feels sick, he says "bathroom". Repeatedly sitting in a chair standing back up and pacing around the emergency department. Rubbing his hands through his hair and then holding his chest. - Head Head exam: atraumatic, normocephalic - Eye Eye exam: Present: PERRL, EOMI - ENT ENT exam: Present: mucous membranes moist - Neck Neck exam: Present: normal inspection, full ROM. Absent: meningismus - Chest Chest inspection: Present: normal inspection, symmetric chest wall rise - Respiratory Respiratory exam: Present: normal lung sounds bilaterally. Absent: respiratory distress - Cardiovascular Cardiovascular exam: Present: regular rate, normal rhythm, normal heart sounds - Abdominal Exam Abdominal exam: Present: soft. Absent: distention, guarding - Extremities Exam Extremities exam: Present: normal inspection, full ROM - Neurological Exam Neurological exam: Present: alert, CN II-XII intact, other (Moves all 4 extremities and ambulates independently). Absent: oriented X3 - Psychiatric Psychiatric exam: Present: agitated, anxious - Skin Skin exam: Present: warm, dry
[2018-06-28 09:21] LABS: Basophils # 0.1 K/mm3 (0-0.2); Basophils % 0.6 % (0.1-2.0); Eosinophils # 0.2 K/mm3 (0.0-0.4); Eosinophils % 1.1 % (0.1-12.0); Hematocrit 48.1 % (42.0-52.0); Hemoglobin 15.8 g/dL (14.1-18.0); Lymphocytes # 1.8 K/mm3 (0.7-4.5); Lymphocytes % 13.3 % (10-50); Mean Corpuscular HGB Conc 32.8 g/dL (31.8-35.4); Mean Corpuscular Hemoglobin 31.5 pg (27.0-31.2); Mean Corpuscular Volume 95.8 fl (80-94); Mean Platelet Volume 8.2 fl (7.4-10.4); Monocytes # 0.7 K/mm3 (0.1-1.0); Monocytes % 4.8 % (1.7-9.3); Neutrophils # 11.1 K/mm3 (1.8-7.8); Neutrophils % 80.2 % (37.0-80.0); Platelet Count 372 K/mm3 (142-424); Red Blood Count 5.02 M/mm3 (4.60-6.20); Red Cell Distribution Width 13.8 % (11.5-17.5); White Blood Count 13.8 K/mm3 (4.8-10.8)
[2018-06-28 09:37] LABS: Albumin Level 4.4 gm/dL (3.4-5.0); Albumin/Globulin Ratio 1.1 (1.1-1.8); Anion Gap 14.5 mEq/L (5-15); Bilirubin,Total 0.5 mg/dL (0.2-1.0); Calcium 9.4 mg/dL (8.5-10.1); Globulin 3.9 gm/dl (1.3-3.2); Potassium 3.5 mmoL/L (3.5-5.1); Total Protein,Serum 8.3 gm/dL (6.4-8.2)
[2018-06-28 09:41] LABS: Ethyl Alcohol 0 mg/dL (0-99)
[2018-06-28 10:13] LABS: Microscopic, Urine URINE MICROSCOPIC (MICROSCOPIC)
[2018-06-28 10:15] LABS: Appearance,Urine CLEAR (Clear); Bilirubin,Urine Negative (Negative); Blood, Urine TRACE-L (Negative); Color,Urine YELLOW (Yellow); Glucose,Urine (UA) Negative (Negative); Ketones,Urine Negative (Negative); Leukocyte Esterase,Urine Negative (Negative); Protein,Urine TRACE (Negative); Urobilinogen,Urine 0.2 EU/dl (0.2)
[2018-06-28 10:28] LABS: Amphetamine/Metha Screen,Urine Negative ng/mL (<1000); Barbiturates Screen,Urine Negative ng/mL (<200); Benzodiazepines Screen,Urine Negative ng/mL (<200); Cannabinoid Screen,Urine Negative ng/mL (<50); Cocaine Screen,Urine Negative ng/mL (<300); Methadone Screen,Urine Negative ng/mL (<300); Opiate Screen,Urine Negative ng/mL (<300); Phencyclidine Screen,Urine Negative ng/mL (<25)
[2018-06-28 10:38] LABS: Bacteria,Urine Trace /lpf; Mucus,Urine Trace /lpf
--- NOTE | 2018-06-28 17:25 | History & Physical Report ---
*Admission Date: 06/28/18 *Chief complaint: AMS *History of present illness: Mr. 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 He was last seen in our practice by Dr. 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 He repeatedly pre sents with acute encephalopathy/delirium of uncertain etiology. He is repeatedly transferred to the [facility] and returns to being coherent after a few days. He is very difficult to control and generally requires restraints and sedation. According to the nurse in the ER, he was brought into this emergency department last night around midnight and "left AMA". He was then found earlier this morning by police at the gas station in an altered mental state and was brought back in to the ER very confused and agitated. His nurse did state he initially c/o abdominal pain and when a gibson was placed, he had 900cc of urine output. According to the ER note, he apparently has physicians in [facility], [place], operated by [facility]. He is noncompliant with his medications and outpatient treatment. He had a head CT in the emergency room which showed nothing acute. He had a chest x-ray with a questionable pneumonia, however an abdominal CT did not show pneumonia. The abdominal CT showed nothing acute. He has been given a total of 6 mg of Ativan, 30 mg of Zyprexa, and 5 mg of Haldol. He is still writhing in the bed and his heart rate is elevated. The nurse states he has calmed down since initial presentation. He had to be given ketamine to sedate him for the CT scan. The [facility] was contacted and they have no beds available. The [facility] was contacted and accepted the patient, but they currently have no beds available and he is on a wait list. He will therefore be admitted to [facility] for stabilization and will be transferred to the [facility] once a bed becomes available. [facility] History I have reviewed the patient's past medical history: Yes Medical History: Reports:: Dementia, Hypertension, Internal Pacemaker Denies:: Cancer, Diabetes Mellitus Type 1, Diabetes Mellitus Type 2, MRSA *Have you ever received a pneumonia vaccine?: No (UNABLE TO OBTAIN ACCURATE INFO SECONDARY TO AMS) *Have you received a flu vaccine this season?: No (UNABLE TO OBTAIN ACCURATE INFO) Other Medical History: Reports: Other (alcoholism, bipolar disorder, schizophrenia, subdural hematomas) Other Surgeries: Yes: Pacemaker Amputation: No Fractures: No - *Social History Smoking Status: Unknown if ever smoked Tobacco Type: cigarettes # Packs/Day (cigarettes): 0 Alcohol Intake: never Alcohol Intake Frequency:: other Substance Use Type: unknown *Occupational Status:: disabled Housing: apartment Household Members: none *Travel in the last 8 weeks: None - Psychiatric History Expresses thoughts of harming self/others: None Suicide Plan Description: No Plan Family Hx:: Unable to obtain Review of Systems - Review of Systems Review of systems:: unable to obtain Meds Home Medications Medication Instructions Recorded Confirmed Type Bisoprolol Fumarate [Zebeta 5mg 5 mg PO DAILY 09/07/17 06/28/18 History tablet] Isosorbide Mononitrate [Imdur 30mg 30 mg PO DAILY 09/07/17 06/28/18 History ER tablet] Aspirin [Aspirin EC 325mg Tab] 325 mg PO DAILY 06/07/18 06/28/18 History Baclofen [Lioresal 10mg tablet] 10 mg PO TIDP PRN 06/07/18 06/28/18 History Cyclobenzaprine HCl 5 mg PO TIDP PRN 06/07/18 06/28/18 History [Cyclobenzaprine 5mg Tab] Quetiapine Fumarate 100 mg PO DAILY 06/07/18 06/28/18 History Allergies Allergy/AdvReac Type Severity Reaction Status Date / Time codeine [CODEINE] Allergy Unknown Unknown Verified 06/06/18 19:50 allergy reaction meperidine [From DEMEROL] Allergy Unknown Unknown Verified 06/06/18 19:50 allergy reaction oxycodone [From PERCOCET] Allergy Unknown Unknown Verified 06/06/18 19:50 allergy reaction Penicillins [PENICILLINS] Allergy Unknown Unknown Verified 06/06/18 19:50 allergy reaction sertraline [From ZOLOFT] Allergy Unknown Unknown Verified 06/06/18 19:50 allergy reaction Exam Vital signs and Labs for Last 24 Hours: Temp Pulse Resp BP Pulse Ox 99.4 F 147 H 17 162/82 H 95 06/28/18 12:12 06/28/18 16:37 06/28/18 13:55 06/28/18 16:37 06/28/18 16:37 Laboratory Results - last 24 hr 06/28/18 09:08: Troponin I < 0.02, Plasma/Serum Alcohol 0 06/28/18 09:08: WBC 13.8 H, RBC 5.02, Hgb 15.8, Hct 48.1, MCV 95.8 H, MCH 31.5 H , MCHC 32.8, RDW 13.8, Plt Count 372, MPV 8.2, Neut % (Auto) 80.2 H, Lymph % (Auto) 13.3, [place] % (Auto) 4.8, Eos % (Auto) 1.1, Baso % (Auto) 0.6, Neut # (Auto) 11.1 H, Lymph # (Auto) 1.8, [place] # (Auto) 0.7, Eos # (Auto) 0.2, Baso # (Auto) 0.1 06/28/18 09:08: Sodium 139, Potassium 3.5, Chloride 100, Carbon Dioxide 28, Anion Gap 14.5, BUN 10, Creatinine 1.17, Estimated Creat Clear 57, Estimated GFR 64, Est GFR ( Amer) 77, Glucose 96, Calcium 9.4, Total Bilirubin 0.5, AST 10 L, ALT 18, Alkaline Phosphatase 97, Total Protein 8.3 H, Albumin 4.4, Globulin 3.9 H, Albumin/Globulin Ratio 1.1, Amylase 57, Lipase 110 06/28/18 09:49: Urine Color Yellow, Urine Appearance Clear, Urine pH 7.0, Ur S pecific [place] 1.010, Urine Protein Trace, Urine Glucose (UA) Negative, Urine Ketones Negative, Urine Blood Trace-l, Urine Nitrate Negative, Urine Bilirubin Negative, Urine Urobilinogen 0.2, Ur Leukocyte Esterase Negative, Urine RBC 3-5, Urine WBC 5-10, Urine Bacteria Trace, Urine Mucus Trace 06/28/18 09:49: Urine Opiates Screen Negative, Urine Methadone Screen Negative, Ur Barbituates Screen Negative, Ur Phencyclidine Scrn Negative, Ur Amphetamines Screen Negative, U Benzodiazepines Scrn Negative, Urine Cocaine Screen Negative, U Marijuana (THC) Screen Negative 06/28/18 11:00: Lactate 5.0 H 06/28/18 15:30: Lactate 2.5 H I & O for Last 24 hours: Intake & Output 06/26/18 06/27/18 06/28/18 06/29/18 11:59 11:59 11:59 11:59 Weight 130 lb - Constitutional agitated (in restraints, unable to answer questions) - *Routine HEENT Exam Head: Present: normocephalic Eye: Present: EOMI, PERRL ENT: Present: mucous membranes dry - *Routine Neck Exam Present: supple, full ROM. Absent: lymphadenopathy - *Routine Respiratory Exam Present: CTA bilaterally - *Routine Cardiovascular Exam Present: tachycardia - *Routine Abdominal Exam Present: soft, normoactive bowel sounds. Absent: tenderness - *Routine Extremities Exam Absent: cyanosis, clubbing, edema - *Routine Skin Exam Present: warm (diaphoretic). Absent: rash - *Routine Neurological Exam Present: altered mental status - Routine Psychiatric Exam Present: agitated H&P: Result - Impressions CXR 1. Chronic changes with superimposed atelectasis or infiltrate in the right lung base 2. There was increased density in the right lung base on the radiograph which was suspicious for atelectasis or infiltrate. The abdomen CT however did not show any airspace disease in the right lower lung base indicating that this was likely due to vascular crowding and overlying summation artifact. CT head - nothing acute Abdominal CT - nothing acute Assessment and Plan (1) Encephalopathy Current visit: Yes Status: Acute Category: Medical Code(s): G93.40 - Encephalopathy, unspecified (2) Schizophrenia Current visit: Yes Status: Chronic Qualifiers: Schizophrenia type: unspecified Qualified Code(s): F20.9 - Schizophrenia, unspecified Category: Medical Code(s): F20.9 - Schizophrenia, unspecified (3) Acute delirium Current visit: No Status: Acute Category: Medical Code(s): R41.0 - Disorientation, unspecified (4) Acute urinary retention Current visit: No Status: Acute Category: Medical Code(s): R33.8 - Other retention of urine (5) History of alcoholism Current visit: No Status: Chronic Category: Medical Code(s): F10.21 - Alcohol dependence, in remission (6) Sinus tachycardia Current visit: No Status: Acute Category: Medical Code(s): R00.0 - Tac hycardia, unspecified (7) Non compliance w medication regimen Current visit: No Status: Chronic Category: Medical Code(s): Z91.14 - Patient's other noncompliance with medication regimen (8) Agitation Current visit: No Status: Acute Category: Medical Code(s): R45.1 - Restlessness and agitation (9) Leukocytosis Current visit: Yes Status: Acute Category: Medical Code(s): D72.829 - Elevated white blood cell count, unspecified (10) Elevated lactic acid level Current visit: Yes Status: Acute Category: Medical Code(s): R79.89 - Other specified abnormal findings of blood chemistry - Assessment and plan all Dx Assessment and Plan for all problems:: The patient is still in the ER. He has been started on abx. Will discuss further care with Dr. Alexandra. He will require one on one care and restraints throughout the night.
--- NOTE | 2018-06-29 05:25 | Progress Note ---
Internal Medicine - PN: Subj *Date: 06/29/18 *Time: 03:35 Interval history: restraint eval as per hospital policy for use of restraints for behavioral issues - pt known to me from ed - he has psychosis-he is combative Exam Vital signs and Labs for Last 24 Hours: Temp Pulse Resp BP Pulse Ox 98.9 F 116 H 24 151/80 H 95 06/29/18 04:00 06/29/18 04:00 06/29/18 04:00 06/29/18 04:00 06/29/18 04:00 Laboratory Results - last 24 hr 06/28/18 09:08: Troponin I < 0.02, Plasma/Serum Alcohol 0 06/28/18 09:08: WBC 13.8 H, RBC 5.02, Hgb 15.8, Hct 48.1, MCV 95.8 H, MCH 31.5 H , MCHC 32.8, RDW 13.8, Plt Count 372, MPV 8.2, Neut % (Auto) 80.2 H, Lymph % (Auto) 13.3, [place] % (Auto) 4.8, Eos % (Auto) 1.1, Baso % (Auto) 0.6, Neut # (Auto) 11.1 H, Lymph # (Auto) 1.8, [place] # (Auto) 0.7, Eos # (Auto) 0.2, Baso # (Auto) 0.1 06/28/18 09:08: Sodium 139, Potassium 3.5, Chloride 100, Carbon Dioxide 28, Anion Gap 14.5, BUN 10, Creatinine 1.17, Estimated Creat Clear 57, Estimated GFR 64, Est GFR ( Amer) 77, Glucose 96, Calcium 9.4, Total Bilirubin 0.5, AST 10 L, ALT 18, Alkaline Phosphatase 97, Total Protein 8.3 H, Albumin 4.4, Globulin 3.9 H, Albumin/Globulin Ratio 1.1, Amylase 57, Lipase 110 06/28/18 09:49: Urine Color Yellow, Urine Appearance Clear, Urine pH 7.0, Ur Specific [place] 1.010, Urine Protein Trace, Urine Glucose (UA) Negative, Urine Ketones Negative, Urine Blood Trace-l, Urine Nitrate Negative, Urine Bilirubin Negative, Urine Urobilinogen 0.2, Ur Leukocyte Esterase Negative, Urine RBC 3-5, Urine WBC 5-10, Urine Bacteria Trace, Urine Mucus Trace 06/28/18 09:49: Urine Opiates Screen Negative, Urine Methadone Screen Negative, Ur Barbituates Screen Negative, Ur Phencyclidine Scrn Negative, Ur Amphetamines Screen Negative, U Benzodiazepines Scrn Negative, Urine Cocaine Screen Negative, U Marijuana (THC) Screen Negative 06/28/18 11:00: Lactate 5.0 H 06/28/18 15:30: Lactate 2.5 H 06/28/18 17:22: Lactate 2.1 H I & O for Last 24 hours: Intake & Output 06/26/18 06/27/18 06/28/18 06/29/18 11:59 11:59 11:59 11:59 Intake Total 1178 / 1178 Output Total 2024 / 2024 Balance -847 / -847 Weight 130 lb 149 lb - Constitutional combative - *Routine HEENT Exam Head: Present: normocephalic Eye: Present: EOMI, PERRL ENT: Present: mucous membranes dry - *Routine Neck Exam Absent: JVD - *Routine Respiratory Exam Absent: respiratory distress - *Routine Cardiovascular Exam Present: RRR - *Routine Extremities Exam Absent: edema - *Routine Skin Exam Present: intact - *Routine Neurological Exam Present: CN II-XII intact, altered mental status - Routine Psychiatric Exam Present: agitated, paranoid. Absent: good insight Assessment and Plan (1) Encephalopathy Current visit: Yes Status: Acute Category: Medical Code(s): G93.40 - Encephalopathy, unspecified (2) Schizophrenia Current visit: Yes Status: Chronic Qualifiers: Schizophrenia type: unspecified Qualified Code(s): F20.9 - Schizophrenia, unspecified Category: Medical Code(s): F20.9 - Schizophrenia, unspecified (3) Acute delirium Current visit: No Status: Acute Category: Medical Code(s): R41.0 - Disorientation, unspecified (4) Acute urinary retention Current visit: No Status: Acute Category: Medical Code(s): R33.8 - Other retention of urine (5) History of alcoholism Current visit: No Status: Chronic Category: Medical Code(s): F10.21 - Alcohol dependence, in remission (6) Sinus tachycardia Current visit: No Status: Acute Category: Medical Code(s): R00.0 - Tachycardia, unspecified (7) Non compliance w medication regimen Current visit: No Status: Chronic Category: Medical Code(s): Z91.14 - Patient's other noncompliance with medication regimen (8) Agitation Current visit: No Status: Acute Category: Medical Code(s): R45.1 - Restlessness and agitation (9) Leukocytosis Current visit: Yes Status: Acute Category: Medical Code(s): D72.829 - Elevated white blood cell count, unspecified (10) Elevated lactic acid level Current visit: Yes Status: Acute Category: Medical Code(s): R79.89 - Other specified abnormal findings of blood chemistry (11) Requires restraints for behavioral reasons Current visit: Yes Status: Acute Category: Medical Code(s): Z78.1 - Physical restraint status
--- NOTE | 2018-06-29 07:37 | Pharmacy Consult Notes ---
[facility] Pharmacy VTE Monitoring - Patient Demographics Admission date: 06/28/18 Report Date: 06/29/18 Time: 07:37 Allergies/Adverse Reactions: Patient Allergies codeine [CODEINE] Allergy (Unknown, Verified 06/06/18 19:50) Unknown allergy reaction meperidine [From DEMEROL] Allergy (Unknown, Verified 06/06/18 19:50) Unknown allergy reaction oxycodone [From PERCOCET] Allergy (Unknown, Verified 06/06/18 19:50) Unknown allergy reaction Penicillins [PENICILLINS] Allergy (Unknown, Verified 06/06/18 19:50) Unknown allergy reaction sertraline [From ZOLOFT] Allergy (Unknown, Verified 06/06/18 19:50) Unknown allergy reaction Height: 1.73 m Weight: 65.913 kg Patient Problems: Current Active Problems (Updated 06/29/18 @ 05:26 by Nahid Worrell MD) Schizophrenia (Chronic) Encephalopathy (Acute) Leukocytosis (Acute) Elevated lactic acid level (Acute) Requires restraints for behavioral reasons (Acute) - VTE Risk Labs: VTE Related Lab Results Hgb 15.8 g/dL (14.1-18.0) 06/28/18 09:08 Hct 48.1 % (42.0-52.0) 06/28/18 09:08 Plt Count 372 K/mm3 (142-424) 06/28/18 09:08 BUN 10 mg/dL (7-18) 06/28/18 09:08 Creatinine 1.17 mg/dL (0.70-1.30) 06/28/18 09:08 Estimated Creat Clear 57 mL/min (50-200) 06/28/18 09:08 Was VTE Risk Assessment Performed: No VTE Score: 2 VTE Risk Level: Very Low Risk Clinical Trial Participant: No - Prophylaxis VTE Prophylaxis Ordered?: Yes Types of VTE Prophylaxis: TEDS Knee High Location of Applied Device: Bilateral Lower Extremeties
--- NOTE | 2018-06-29 08:48 | Progress Note ---
Internal Medicine - PN: Alena *Date: 06/29/18 *Time: 08:45 Interval history: Patient's mental status has improved slightly this morning. He is no longer in restraints and has been out of them since approximately 5 AM. His nurse states he has been sleeping most of the morning as he did not rest at all last night. He can answer some questions but falls asleep with any questioning. Exam Vital signs and Labs for Last 24 Hours: Temp Pulse Resp BP Pulse Ox 97.8 F 86 22 149/98 H 95 06/29/18 07:47 06/29/18 07:47 06/29/18 07:47 06/29/18 07:47 06/29/18 07:47 Laboratory Results - last 24 hr 06/28/18 09:08: Troponin I < 0.02, Plasma/Serum Alcohol 0 06/28/18 09:08: WBC 13.8 H, RBC 5.02, Hgb 15.8, Hct 48.1, MCV 95.8 H, MCH 31.5 H , MCHC 32.8, RDW 13.8, Plt Count 372, MPV 8.2, Neut % (Auto) 80.2 H, Lymph % (Auto) 13.3, [place] % (Auto) 4.8, Eos % (Auto) 1.1, Baso % (Auto) 0.6, Neut # (Auto) 11.1 H, Lymph # (Auto) 1.8, [place] # (Auto) 0.7, Eos # (Auto) 0.2, Baso # (Auto) 0.1 06/28/18 09:08: Sodium 139, Potassium 3.5, Chloride 100, Carbon Dioxide 28, Anion Gap 14.5, BUN 10, Creatinine 1.17, Estimated Creat Clear 57, Estimated GFR 64, Est GFR ( Amer) 77, Glucose 96, Calcium 9.4, Total Bilirubin 0.5, AST 10 L, ALT 18, Alkaline Phosphatase 97, Total Protein 8.3 H, Albumin 4.4, Globulin 3.9 H, Albumin/Globulin Ratio 1.1, Amylase 57, Lipase 110 06/28/18 09:49: Urine Color Yellow, Urine Appearance Clear, Urine pH 7.0, Ur Specific [place] 1.010, Urine Protein Trace, Urine Glucose (UA) Negative, Urine Ketones Negative, Urine Blood Trace-l, Urine Nitrate Negative, Urine Bilirubin Negative, Urine Urobilinogen 0.2, Ur Leukocyte Esterase Negative, Urine RBC 3-5, Urine WBC 5-10, Urine Bacteria Trace, Urine Mucus Trace 06/28/18 09:49: Urine Opiates Screen Negative, Urine Methadone Screen Negative, Ur Barbituates Screen Negative, Ur Phencyclidine Scrn Negative, Ur Amphetamines Screen Negative, U Benzodiazepines Scrn Negative, Urine Cocaine Screen Negative, U Marijuana (THC) Screen Negative 06/28/18 11:00: Lactate 5.0 H 06/28/18 15:30: Lactate 2.5 H 06/28/18 17:22: Lactate 2.1 H I & O for Last 24 hours: Intake & Output 06/26/18 06/27/18 06/28/18 06/29/18 11:59 11:59 11:59 11:59 Intake Total 2104 / 2104 Output Total 2750 / 2750 Balance -646 / -646 Weight 130 lb 145 lb 5 oz - Constitutional no acute distress - *Routine Respiratory Exam Present: CTA bilaterally - *Routine Cardiovascular Exam Present: RRR - *Routine Abdominal Exam Present: soft, normoactive bowel sounds. Absent: tenderness - *Routine Extremities Exam Absent: cyanosis, clubbing, edema Assessment and Plan (1) Encephalopathy Current visit: Yes Status: Acute Category: Medical Code(s): G93.40 - Encephalopathy, unspecified (2) Schizophrenia Current visit: Yes Status: Chronic Qualifiers: Schizophrenia type: unspecified Qualified Code(s): F20.9 - Schizophrenia, unspecified Category: Medical Code(s): F20.9 - Schizophrenia, unspecified (3) Acute delirium Current visit: No Status: Acute Category: Medical Code(s): R41.0 - Disorientation, unspecified (4) Acute urinary retention Current visit: No Status: Acute Category: Medical Code(s): R33.8 - Other retention of urine (5) History of alcoholism Current visit: No Status: Chronic Category: Medical Code(s): F10.21 - Alcohol dependence, in remission (6) Sinus tachycardia Current visit: No Status: Acute Category: Medical Code(s): R00.0 - Tachycardia, unspecified (7) Non compliance w medication regimen Current visit: No Status: Chronic Category: Medical Code(s): Z91.14 - Patient's other noncompliance with medication regimen (8) Agitation Current visit: No Status: Acute Category: Medical Code(s): R45.1 - Restlessness and agitation (9) Leukocytosis Current visit: Yes Status: Acute Category: Medical Code(s): D72.829 - Elevated white blood cell count, unspecified (10) Elevated lactic acid level Current visit: Yes Status: Acute Category: Medical Code(s): R79.89 - Other specified abnormal findings of blood chemistry (11) Requires restraints for behavioral reasons Current visit: Yes Status: Acute Category: Medical Code(s): Z78.1 - Physical restraint status - Assessment and plan all Dx Assessment and Plan for all problems:: Awaiting culture results. Patient will remain on "one on one" until medically stable. We will check with to see if a bed is available today for transfer.
[2018-06-29 09:53] LABS: Basophils # 0.1 K/mm3 (0-0.2); Basophils % 1.4 % (0.1-2.0); Eosinophils # 0.2 K/mm3 (0.0-0.4); Eosinophils % 2.4 % (0.1-12.0); Hematocrit 42.4 % (42.0-52.0); Hemoglobin 14.1 g/dL (14.1-18.0); Lymphocytes # 2.3 K/mm3 (0.7-4.5); Lymphocytes % 25.5 % (10-50); Mean Corpuscular HGB Conc 33.2 g/dL (31.8-35.4); Mean Corpuscular Hemoglobin 31.7 pg (27.0-31.2); Mean Corpuscular Volume 95.7 fl (80-94); Mean Platelet Volume 8.2 fl (7.4-10.4); Monocytes # 0.6 K/mm3 (0.1-1.0); Monocytes % 6.7 % (1.7-9.3); Neutrophils # 5.8 K/mm3 (1.8-7.8); Neutrophils % 64.1 % (37.0-80.0); Platelet Count 258 K/mm3 (142-424); Red Blood Count 4.43 M/mm3 (4.60-6.20); Red Cell Distribution Width 13.8 % (11.5-17.5); White Blood Count 9.1 K/mm3 (4.8-10.8)
[2018-06-29 10:06] LABS: Calcium 8.3 mg/dL (8.5-10.1)
--- NOTE | 2018-06-30 08:59 | Progress Note ---
Internal Medicine - PN: Subj *Date: 06/30/18 *Time: 08:56 Interval history: Pt is sitting up in bed watching the news. He denies any complaint this morning. He has had breakfast and is feeling well. He is oriented and answering questions appropriately. He would like to be discharged home this morning. Exam Vital signs and Labs for Last 24 Hours: Temp Pulse Resp BP Pulse Ox 98.4 F 78 18 141/92 H 100 06/30/18 08:00 06/30/18 08:00 06/30/18 08:00 06/30/18 08:00 06/30/18 08:00 Laboratory Results - last 24 hr 06/29/18 09:24: WBC 9.1 D, RBC 4.43 L, Hgb 14.1, Hct 42.4, MCV 95.7 H, MCH 31.7 H, MCHC 33.2, RDW 13.8, Plt Count 258 D, MPV 8.2, Neut % (Auto) 64.1, Lymph % (Auto) 25.5, [place] % (Auto) 6.7, Eos % (Auto) 2.4, Baso % (Auto) 1.4, Neut # (Auto) 5.8, Lymph # (Auto) 2.3, [place] # (Auto) 0.6, Eos # (Auto) 0.2, Baso # (Auto) 0.1 06/29/18 09:24: Sodium 143, Potassium 3.0 L, Chloride 108 H, Carbon Dioxide 25, Anion Gap 13.0, BUN 8, Creatinine 1.04, Estimated Creat Clear 72, Estimated GFR 73, Est GFR ( Amer) 89, Glucose 97, Calcium 8.3 L D I & O for Last 24 hours: Intake & Output 06/27/18 06/28/18 06/29/18 06/30/18 11:59 11:59 11:59 11:59 Intake Total 2344 / 2344 2952 / 2952 Output Total 3600 / 3600 2900 / 2900 Balance -1256 / -1256 52 / 52 Weight 130 lb 145 lb 5 oz 145 lb 2 oz - Constitutional no acute distress - *Routine HEENT Exam Head: Present: normocephalic ENT: Present: mucous membranes moist - *Routine Respiratory Exam Present: CTA bilaterally - *Routine Cardiovascular Exam Present: RRR - *Routine Abdominal Exam Present: soft, normoactive bowel sounds. Absent: tenderness, distended, rebound, guarding, firm, rigid, organomegaly - *Routine Extremities Exam Present: full ROM, pulses intact. Absent: edema, calf tenderness - *Routine Neurological Exam Present: alert, oriented X3, moving all extremities, normal speech. Absent: facial asymmetry Assessment and Plan (1) Encephalopathy Current visit: Yes Status: Acute Category: Medical Code(s): G93.40 - Encephalopathy, unspecified (2) Schizophrenia Current visit: Yes Status: Chronic Qualifiers: Schizophrenia type: unspecified Qualified Code(s): F20.9 - Schizophrenia, unspecified Category: Medical Code(s): F20.9 - Schizophrenia, unspecified (3) Acute delirium Current visit: No Status: Acute Category: Medical Code(s): R41.0 - Disorientation, unspecified (4) Acute urinary retention Current visit: No Status: Acute Category: Medical Code(s): R33.8 - Other retention of urine (5) History of alcoholism Current visit: No Status: Chronic Category: Medical Code(s): F10.21 - Alcohol dependence, in remission (6) Sinus tachycardia Current visit: No Status: Acute Category: Medical Code(s): R00.0 - Tachycardia, unspecified (7) Non compliance w medication regimen Current visit: No Status: Chronic Category: Medical Code(s): Z91.14 - Patient's other noncompliance with medication regimen (8) Agitation Current visit: No Status: Acute Category: Medical Code(s): R45.1 - Restlessness and agitation (9) Leukocytosis Current visit: Yes Status: Acute Category: Medical Code(s): D72.829 - Elevated white blood cell count, unspecified (10) Elevated lactic acid level Current visit: Yes Status: Acute Category: Medical Code(s): R79.89 - Other specified abnormal findings of blood chemistry (11) Requires restraints for behavioral reasons Current visit: Yes Status: Acute Category: Medical Code(s): Z78.1 - Physical restraint status - Assessment and plan all Dx Assessment and Plan for all problems:: Further per Dr. Alexandra.
--- NOTE | 2018-06-30 21:37 | Discharge Summary ---
General - General Admission date:: 06/28/18 Discharge date: 06/30/18 HPI HPI: Mr. 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 He was last seen in our practice by Dr. 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 He repeatedly presents with acute encephalopathy/delirium of uncertain etiology. He is repeatedly transferred to the [facility] and returns to being coherent after a few days. He is very difficult to control and generally requires restraints and sedation. According to the nurse in the ER, he was brought into this emergency department last night around midnight and "left AMA". He was then found earlier this morning by police at the gas station in an altered mental state and was brought back in to the ER very confused and agitated. His nurse did state he initially c/o abdominal pain and when a gibson was placed, he had 900cc of urine output. According to the ER note, he apparently has physicians in [facility]. He is noncompliant with his medications and outpatient treatment. He had a head CT in the emergency room which showed nothing acute. He had a chest x-ray with a questionable pneumonia, however an abdominal CT did not show pneumonia. The abdominal CT showed nothing acute. He has been given a total of 6 mg of Ativan, 30 mg of Zyprexa, and 5 mg of Haldol. He is still writhing in the bed and his heart rate is elevated. The nurse states he has calmed down since initial presentation. He had to be given ketamine to sedate him for the CT scan. The [facility] was contacted and they have no beds available. The [facility] was contacted and accepted the patient, but they currently have no beds available and he is on a wait list. He will therefore be admitted to Psychiatric for stabilization and will be transferred to the [facility] once a bed becomes available. Hospital Course Hospital Course: The patient's chest x-ray showed chronic changes with superimposed atelectasis versus infiltrate in the right lung base, however his abdominal CT did not reveal a pneumonia. It showed nothing acute. His head CT also showed nothing acute. He was admitted and started on IV antibiotics. He did require one-on-one care initially as well as restraints. He was started on Zyprexa 10 mg IM every 8 hours. By the next day, he was out of restraints and was less combative. He was still not very conversant. He was able to be removed from one-on-one care. By 06/30/2018, the patient was sitting up in the bed watching the news and denied any complaints. He was oriented and answering questions appropriately and wanted to be discharged home. He was discharged home on olanzapine 20 mg daily. Objective Vital signs: Temp Pulse Resp BP Pulse Ox 98.4 F 78 18 141/92 H 100 06/30/18 08:00 06/30/18 08:00 06/30/18 08:00 06/30/18 08:00 06/30/18 08:00 Narrative: - Constitutional agitated (in restraints, unable to answer questions) - *Routine HEENT Exam Head: Present: normocephalic Eye: Present: EOMI, PERRL ENT: Present: mucous membranes dry - *Routine Neck Exam Present: supple, full ROM. Absent: lymphadenopathy - *Routine Respiratory Exam Present: CTA bilaterally - *Routine Cardiovascular Exam Present: tachycardia - *Routine Abdominal Exam Present: soft, normoactive bowel sounds. Absent: tenderness - *Routine Extremities Exam Absent: cyanosis, clubbing, edema - *Routine Skin Exam Present: warm (diaphoretic). Absent: rash - *Routine Neurological Exam Present: altered mental status - Routine Psychiatric Exam Present: agitated Results Labs on day of discharge: Preliminary micro results at discharge 06/28/18 10:47 Blood Culture - Preliminary Blood NO GROWTH AFTER 48 HOURS 06/28/18 11:00 Blood Culture - Preliminary Blood NO GROWTH AFTER 48 HOURS DS: Diagnosis - Discharge Diagnosis (1) Encephalopathy Status: Acute (2) Schizophrenia Status: Chronic (3) Acute delirium Status: Acute (4) Acute urinary retention Status: Acute (5) History of alcoholism Status: Chronic (6) Sinus tachycardia Status: Acute (7) Non compliance w medication regimen Status: Chronic (8) Agitation Status: Acute (9) Leukocytosis Status: Acute (10) Elevated lactic acid level Status: Acute (11) Requires restraints for behavioral reasons Status: Acute Discharge Plan - Patient Discharge Instructions ACTIVITY: Continue current activity DIET: continue same diet Additional Instructions: Avoid alcohol Patient Instructions: DI for Schizophrenia, DI for Encephalopathy, DI for Leukocytosis - Follow up Plan Unknown provider or service follow up:: 06/30/18 09:11 Your primary care physician in [facility]. Disposition: Home, Self-Prison Medications: Home Medications Medication Instructions Recorded Confirmed Type Bisoprolol Fumarate [Zebeta 5mg 5 mg PO DAILY 09/07/17 06/28/18 History tablet] Isosorbide Mononitrate [Imdur 30mg 30 mg PO DAILY 09/07/17 06/28/18 History ER tablet] Aspirin [Aspirin EC 325mg Tab] 325 mg PO DAILY 06/07/18 06/28/18 History Baclofen [Lioresal 10mg tablet] 10 mg PO TIDP PRN 06/07/18 06/28/18 History Quetiapine Fumarate 100 mg PO HS 06/07/18 06/29/18 History Atorvastatin Calcium [Atorvastatin 40 mg PO HS 06/29/18 06/29/18 History 40mg Tab] Furosemide [Furosemide 20mg Tab] 20 mg PO DAILY 06/29/18 06/29/18 History Lisinopril [Lisinopril 5mg Tablet] 5 mg PO DAILY 06/29/18 06/29/18 History OLANZapine [Olanzapine] 20 mg PO DAILY #30 tab 06/30/18 Rx Prescriptions/Medication Reconciliation: New OLANZapine [Olanzapine] 20 mg PO DAILY #30 tab Continued Isosorbide Mononitrate [Imdur 30mg ER tablet] 30 mg PO DAILY Bisoprolol Fumarate [Zebeta 5mg tablet] 5 mg PO DAILY Quetiapine Fumarate 100 mg PO HS Lisinopril [Lisinopril 5mg Tablet] 5 mg PO DAILY Baclofen [Lioresal 10mg tablet] 10 mg PO TIDP PRN PRN Reason: Muscle Spasm Aspirin [Aspirin EC 325mg Tab] 325 mg PO DAILY Atorvastatin Calcium [Atorvastatin 40mg Tab] 40 mg PO HS Furosemide [Furosemide 20mg Tab] 20 mg PO DAILY Discontinued Cyclobenzaprine HCl [Cyclobenzaprine 5mg Tab] 5 mg PO Q8HP PRN PRN Reason: Muscle Spasm
== END 2018-06-30 09:47 | disposition home or self-care (01) ==
LOC: ER 04:08 → 2ND 04:08
PROVIDERS: ADMIT Family Medicine; ATTEND Family Medicine
DX: R33.8 Other retention of urine; Z91.14 Patient's other noncompliance with medication regimen; G93.40 Encephalopathy, unspecified; Z88.8 Allergy status to other drugs, medicaments and biological substances; Z95.0 Presence of cardiac pacemaker; R41.0 Disorientation, unspecified; R79.89 Other specified abnormal findings of blood chemistry; F10.21 Alcohol dependence, in remission; R45.1 Restlessness and agitation; Z88.0 Allergy status to penicillin; F20.9 Schizophrenia, unspecified; R00.0 Tachycardia, unspecified; Z88.6 Allergy status to analgesic agent; I10 Essential (primary) hypertension; D72.829 Elevated white blood cell count, unspecified; T14.8XXA Other injury of unspecified body region, initial encounter; Z78.1 Physical restraint status
CPT/HCPCS: 36415; 70450; 71010; 71045; 74177; 80048; 80053; 80305; 81001; 82150; 83605; 83690; 84484; 85025; 87040; 93005; 96365; 96366; 96367; 96372; 96375; 96376; 99152; 99153; 99211; 99281; 99285; G0378; J1956; J3370; Q9967

== ENCOUNTER 2018-07-29 03:36 | Observation (INO) ==
[2018-07-29 04:01] LABS: Basophils # 0.1 K/mm3 (0-0.2); Basophils % 0.6 % (0.1-2.0); Eosinophils # 0.2 K/mm3 (0.0-0.4); Hematocrit 47.5 % (42.0-52.0); Hemoglobin 15.1 g/dL (14.1-18.0); Lymphocytes # 2.1 K/mm3 (0.7-4.5); Lymphocytes % 17.6 % (10-50); Mean Corpuscular HGB Conc 31.8 g/dL (31.8-35.4); Mean Corpuscular Hemoglobin 29.7 pg (27.0-31.2); Mean Corpuscular Volume 93.3 fl (80-94); Mean Platelet Volume 8.2 fl (7.4-10.4); Monocytes # 0.7 K/mm3 (0.1-1.0); Monocytes % 6.1 % (1.7-9.3); Neutrophils # 8.9 K/mm3 (1.8-7.8); Neutrophils % 73.7 % (37.0-80.0); Platelet Count 324 K/mm3 (142-424); Red Blood Count 5.09 M/mm3 (4.60-6.20); Red Cell Distribution Width 13.3 % (11.5-17.5); White Blood Count 12.1 K/mm3 (4.8-10.8)
[2018-07-29 04:20] LABS: Albumin/Globulin Ratio 1.2 (1.1-1.8); Anion Gap 16.4 mEq/L (5-15); Bilirubin,Total 0.4 mg/dL (0.2-1.0); Globulin 3.4 gm/dl (1.3-3.2); Potassium 4.4 mmoL/L (3.5-5.1); Salicylate 8.4 mg/dL (2.8-20.0); Total Protein,Serum 7.4 gm/dL (6.4-8.2)
[2018-07-29 04:25] LABS: Calcium 9.1 mg/dL (8.5-10.1)
--- NOTE | 2018-07-29 06:18 | Emergency Department Note ---
ED Disposition Clinical Impression: Acute psychosis, Pacemaker Disposition: Admitted as Observation Condition on Discharge: Fair Instructions: DI for Altered Mental Status Referrals: Provider,Referral, [Referring] - - Critical Care Critical Care Time: No Attestation: On 07/29/18, the high probability of a clinically significant, sudden or life threatening deterioration of the following system(s) required my full and direct attention, intervention and personal management. The time I documented below is in addition to time spent performing reported procedures but includes the following listed in this critical care notation. Medical Decision Making - Medical Records Medical records reviewed: Yes: I reviewed the patient's medical records. - Karel Inquiry Pt receiving controlled substance: No Vital Signs: 07/29/18 03:28 Temperature 97.9 F Temperature Source Oral Pulse Rate [Right Radial] 89 Respiratory Rate 20 Blood Pressure [Right Arm] 160/98 H Blood Pressure Mean [Right Arm] 118 02 Sat by Pulse Oximetry 98 - Lab Data Lab results reviewed: Yes: I reviewed the patient's lab results. Lab Results 07/29/18 03:55: WBC 12.1 H, RBC 5.09, Hgb 15.1, Hct 47.5, MCV 93.3, MCH 29.7, MCHC 31.8, RDW 13.3, Plt Count 324, MPV 8.2, Neut % (Auto) 73.7, Lymph % (Auto) 17.6, [place] % (Auto) 6.1, Eos % (Auto) 2.0, Baso % (Auto) 0.6, Neut # (Auto) 8.9 H, Lymph # (Auto) 2.1, [place] # (Auto) 0.7, Eos # (Auto) 0.2, Baso # (Auto) 0.1 07/29/18 03:55: Sodium 140, Potassium 4.4, Chloride 103, Carbon Dioxide 25, Anion Gap 16.4 H, BUN 8, Creatinine 1.12, Estimated Creat Clear 79, Estimated GFR 67, Est GFR ( Amer) 81, Glucose 116 H, Calcium 9.1, Total Bilirubin 0.4, AST 16, ALT 18, Alkaline Phosphatase 95, Troponin I 0.02, Total Protein 7.4, Albumin 4.0, Globulin 3.4 H, Albumin/Globulin Ratio 1.2, Salicylates 8.4, Acetaminophen 0 L, Plasma/Serum Alcohol 0 07/29/18 06:32: Urine Color Yellow, Urine Appearance Clear, Urine pH 6.5, Ur Specific [place] 1.015, Urine Protein Negative, Urine Glucose (UA) Negative, Urine Ketones Negative, Urine Blood Negative, Urine Nitrate Negative, Urine Bilirubin Negative, Urine Urobilinogen 0.2, Ur Leukocyte Esterase Negative, Urine WBC 3-5, Ur Squamous Epith Cells Occasional, Amorphous Sediment Trace, Urine Bacteria Trace 07/29/18 06:32: Urine Opiates Screen Negative, Urine Methadone Screen Negative, Ur Barbituates Screen Negative, Ur Phencyclidine Scrn Negative, Ur Amphetamines Screen Negative, U Benzodiazepines Scrn Negative, Urine Cocaine Screen Negative, U Marijuana (THC) Screen Negative Result diagrams: 07/29/18 03:55 07/29/18 03:55 Orders (Tests/Meds): ED MEDICATIONS Generic Name Dose Route Start Last Admin Trade Name Freq PRN Reason Stop Dose Admin Sodium Chloride 1,000 mls @ 999 mls/hr 07/29/18 03:45 07/29/18 03:54 Sod Chlor 0.9% 1000ml Bag IV 07/29/18 04:45 999 mls/hr .Q1H1M KASH Administration Discontinued Medications Generic Name Dose Route Start Last Admin Trade Name Freq PRN Reason Stop Dose Admin Ceftriaxone Sodium 1 gm/ 50 mls @ 100 mls/hr 07/29/18 05:45 07/29/18 05:52 Sodium Chloride IV 08/12/18 05:44 Not Given Q24H KASH Protocol Azithromycin 500 mg/ Sodium 250 mls @ 250 mls/hr 07/29/18 05:45 07/29/18 05:52 Chloride IV 08/12/18 05:44 Not Given Q24H KASH Protocol ORDERS Category Date Time Status CT head/brain wo con Stat Cat Scan 07/29/18 03:35 Taken XR chest portable Stat Exams 07/29/18 03:33 Taken - Radiology Data #1 Image(s): Chest Image Reviewed: Yes I reviewed the patient's radiology image Preliminary Findings: Abnormal (prob ok ) - Physician Consults Physician Consulted: mathieu Reason -: Admission Altered Mental Status HPI - General Chief Complaint: Altered Mental Status Stated Complaint: Altered Mental Status Time Seen by Provider: 07/29/18 03:45 Mode of Arrival: EMS Source of Information: Patient, EMS, Medical Record Limitations: Altered Mental Status Description of Symptoms (Recalled from ER Triage Doc. by RN): pd reports that neighbors heard patient screaming and when they arrived to check on patient he was lieing in the floor and is altered and confused, "jittery," and not making any sense. - History of Present Illness HPI narrative: pt brought by ems as he has altered mental status - he was screaming and neighbor called police and he was not answering questions - pt has hx of these episodes - he has prob schizophrenia and responds to meds - no known trauma or fever and prob noncompliant with meds MD complaint: altered mental status Onset (ago): unknown Timing confirmed by: other (police ) Severity: similar to previous episodes Consistency of symptoms: waxing and waning Context: history of similar presentation Associated symptoms: denies other symptoms - Related Data Home Medications Medication Instructions Recorded Confirmed Bisoprolol Fumarate [Zebeta 5mg 5 mg PO DAILY 09/07/17 06/28/18 tablet] Isosorbide Mononitrate [Imdur 30mg 30 mg PO DAILY 09/07/17 06/28/18 ER tablet] Aspirin [Aspirin EC 325mg Tab] 325 mg PO DAILY 06/07/18 06/28/18 Baclofen [Lioresal 10mg tablet] 10 mg PO TIDP PRN 06/07/18 06/28/18 Quetiapine Fumarate 100 mg PO HS 06/07/18 06/29/18 Atorvastatin Calcium [Atorvastatin 40 mg PO HS 06/29/18 06/29/18 40mg Tab] Furosemide [Furosemide 20mg Tab] 20 mg PO DAILY 06/29/18 06/29/18 Lisinopril [Lisinopril 5mg Tablet] 5 mg PO DAILY 06/29/18 06/29/18 Previous Rx's Medication Instructions Recorded OLANZapine [Olanzapine] 20 mg PO DAILY #30 tab 06/30/18 Allergies Allergy/AdvReac Type Severity Reaction Status Date / Time codeine [CODEINE] Allergy Unknown Unknown Verified 07/29/18 03:33 allergy reaction meperidine [From DEMEROL] Allergy Unknown Unknown Verified 07/29/18 03:33 allergy reaction oxycodone [From PERCOCET] Allergy Unknown Unknown Verified 07/29/18 03:33 allergy reaction Penicillins [PENICILLINS] Allergy Unknown Unknown Verified 07/29/18 03:33 allergy reaction sertraline [From ZOLOFT] Allergy Unknown Unknown Verified 07/29/18 03:33 allergy reaction [facility] History - Hepatitis A Screen Drug use history?: Yes High risk sexual behaviors?: No History of sexually transmitted infection?: No Currently employed?: No Childcare worker?: No Do you have indoor plumbing?: Yes Do you have electricity?: Yes Attestation statement:: This patient has been screened for Hepatitis A risk factors. I have reviewed the patient's past medical history: Yes Medical History: Reports:: Dementia, Hypertension, Internal Pacemaker Denies:: Cancer, Diabetes Mellitus Type 1, Diabetes Mellitus Type 2, MRSA Other Medical History: Reports: Other (alcoholism, bipolar disorder, schizophrenia, subdural hematomas) Comment: Heart disease Other Surgeries: Yes: Pacemaker Amputation: No Fractures: No - Social History Smoking Status: Current every day smoker Tobacco Type: cigarettes # Packs/Day (cigarettes): 1 Alcohol Intake: former Alcohol Intake Frequency:: other Substance Use Type: unknown Occupational Status: disabled Housing: apartment Household Members: none - Psychiatric History Expresses thoughts of harming self/others: None Suicide Plan Description: No Plan Family Hx:: Unable to obtain ROS Obtained: Yes unobtainable due to mental condition - Constitutional Constitutional: Reports fever(s) - Eyes Eyes: Reports change in vision - ENT Ears, Nose, Mouth, and Throat: Reports sore throat Physical Exam - General General appearance: alert, in no apparent distress - Head Head exam: atraumatic - Eye Eye exam: Present: PERRL, EOMI. Absent: scleral icterus - ENT ENT exam: Present: mucous membranes dry - Neck Neck exam: Present: trachea midline - Respiratory Respiratory exam: Present: normal lung sounds bilaterally. Absent: respiratory distress - Cardiovascular Cardiovascular exam: Present: regular rate, Pacemaker/defibrillator. Absent: systolic murmur - Abdominal Exam Abdominal exam: Present: soft - Extremities Exam Extremities exam: Present: normal inspection - Back Exam Back exam: Present: normal inspection - Neurological Exam Neurological exam: Present: CN II-XII intact, other (no focal changes ) - Psychiatric Psychiatric exam: Present: agitated, other (difficult to do full mental status ) - Skin Skin exam: Absent: rash
[2018-07-29 06:35] LABS: Microscopic, Urine URINE MICROSCOPIC (MICROSCOPIC)
[2018-07-29 06:38] LABS: Appearance,Urine CLEAR (Clear); Bilirubin,Urine Negative (Negative); Blood, Urine Negative (Negative); Color,Urine YELLOW (Yellow); Glucose,Urine (UA) Negative (Negative); Ketones,Urine Negative (Negative); Leukocyte Esterase,Urine Negative (Negative); PH,Urine 6.5 (5.0-8.5); Protein,Urine Negative (Negative); Specific Gravity, Urine 1.015 (1.005-1.030); Urobilinogen,Urine 0.2 EU/dl (0.2)
[2018-07-29 06:47] LABS: Amphetamine/Metha Screen,Urine Negative ng/mL (<1000); Barbiturates Screen,Urine Negative ng/mL (<200); Benzodiazepines Screen,Urine Negative ng/mL (<200); Cannabinoid Screen,Urine Negative ng/mL (<50); Cocaine Screen,Urine Negative ng/mL (<300); Methadone Screen,Urine Negative ng/mL (<300); Opiate Screen,Urine Negative ng/mL (<300); Phencyclidine Screen,Urine Negative ng/mL (<25)
[2018-07-29 06:50] LABS: Amorphous Sediment,Urine Trace /lpf; Bacteria,Urine Trace /lpf; Squamous Epithelial Cell,Urine Occasional #/hpf (0-5)
--- NOTE | 2018-07-29 08:52 | History & Physical Report ---
*Admission Date: 07/29/18 *Chief complaint: Mental status change *History of present illness: 58-year-old male with suspected schizophrenia as well as possible alcoholism was brought to the ER via law enforcement due to disruptive behavior at home disturbing his neighbors. This history was received from the ER. Patient is in no shape to provide any history and actually does not answer any questions asked of him. He is currently quite agitated. In the emergency department he received intramuscular Zyprexa x1 as well as IV lorazepam. Nursing staff reports patient was calm until transfer up to the second floor and since that time he has been agitated. He is wearing protective mitts. [facility] History I have reviewed the patient's past medical history: Yes Medical History: Reports:: Dementia, Hypertension, Internal Pacemaker Denies:: Cancer, Diabetes Mellitus Type 1, Diabetes Mellitus Type 2, MRSA *Have you ever received a pneumonia vaccine?: No *Have you received a flu vaccine this season?: No Other Medical History: Reports: Other (alcoholism, bipolar disorder, schizophrenia, subdural hematomas) Other Surgeries: Yes: Pacemaker Amputation: No Fractures: No - *Social History Smoking Status: Current every day smoker Tobacco Type: cigarettes # Packs/Day (cigarettes): 1 Alcohol Intake: former Alcohol Intake Frequency:: other Substance Use Type: unknown *Occupational Status:: disabled Housing: apartment Household Members: none *Travel in the last 8 weeks: None - Psychiatric History Expresses thoughts of harming self/others: None Suicide Plan Description: No Plan Family Hx:: Unable to obtain Review of Systems - Review of Systems Review of systems:: unable to obtain Meds Home Medications Medication Instructions Recorded Confirmed Type Bisoprolol Fumarate [Zebeta 5mg 5 mg PO DAILY 09/07/17 06/28/18 History tablet] Isosorbide Mononitrate [Imdur 30mg 30 mg PO DAILY 09/07/17 06/28/18 History ER tablet] Aspirin [Aspirin EC 325mg Tab] 325 mg PO DAILY 06/07/18 06/28/18 History Baclofen [Lioresal 10mg tablet] 10 mg PO TIDP PRN 06/07/18 06/28/18 History Quetiapine Fumarate 100 mg PO HS 06/07/18 06/29/18 History Atorvastatin Calcium [Atorvastatin 40 mg PO HS 05/09/19 05/09/19 History 40mg Tab] Furosemide [Furosemide 20mg Tab] 20 mg PO DAILY 06/29/18 06/29/18 History Lisinopril [Lisinopril 5mg Tablet] 5 mg PO DAILY 06/29/18 06/29/18 History OLANZapine [Olanzapine] 20 mg PO DAILY #30 tab 06/30/18 Rx Allergies Allergy/AdvReac Type Severity Reaction Status Date / Time codeine [CODEINE] Allergy Unknown Unknown Verified 07/29/18 03:33 allergy reaction meperidine [From DEMEROL] Allergy Unknown Unknown Verified 07/29/18 03:33 allergy reaction oxycodone [From PERCOCET] Allergy Unknown Unknown Verified 07/29/18 03:33 allergy reaction Penicillins [PENICILLINS] Allergy Unknown Unknown Verified 07/29/18 03:33 allergy reaction sertraline [From ZOLOFT] Allergy Unknown Unknown Verified 07/29/18 03:33 allergy reaction Exam Vital signs and Labs for Last 24 Hours: Temp Pulse Resp BP Pulse Ox 97.5 F L 120 H 20 166/97 H 98 07/29/18 07:28 07/29/18 07:28 07/29/18 07:28 07/29/18 07:28 07/29/18 07:28 Laboratory Results - last 24 hr 07/29/18 03:55: WBC 12.1 H, RBC 5.09, Hgb 15.1, Hct 47.5, MCV 93.3, MCH 29.7, MCHC 31.8, RDW 13.3, Plt Count 324, MPV 8.2, Neut % (Auto) 73.7, Lymph % (Auto) 17.6, [place] % (Auto) 6.1, Eos % (Auto) 2.0, Baso % (Auto) 0.6, Neut # (Auto) 8.9 H, Lymph # (Auto) 2.1, [place] # (Auto) 0.7, Eos # (Auto) 0.2, Baso # (Auto) 0.1 07/29/18 03:55: Sodium 140, Potassium 4.4, Chloride 103, Carbon Dioxide 25, Anion Gap 16.4 H, BUN 8, Creatinine 1.12, Estimated Creat Clear 79, Estimated GFR 67, Est GFR ( Amer) 81, Glucose 116 H, Calcium 9.1, Total Bilirubin 0.4, AST 16, ALT 18, Alkaline Phosphatase 95, Troponin I 0.02, Total Protein 7.4, Albumin 4.0, Globulin 3.4 H, Albumin/Globulin Ratio 1.2, Salicylates 8.4, Acetaminophen 0 L, Plasma/Serum Alcohol 0 07/29/18 06:32: Urine Color Yellow, Urine Appearance Clear, Urine pH 6.5, Ur Specific [place] 1.015, Urine Protein Negative, Urine Glucose (UA) Negative, Urine Ketones Negative, Urine Blood Negative, Urine Nitrate Negative, Urine Bilirubin Negative, Urine Urobilinogen 0.2, Ur Leukocyte Esterase Negative, Urine WBC 3-5, Ur Squamous Epith Cells Occasional, Amorphous Sediment Trace, Urine Bacteria Trace 07/29/18 06:32: Urine Opiates Screen Negative, Urine Methadone Screen Negative, Ur Barbituates Screen Negative, Ur Phencyclidine Scrn Negative, Ur Amphetamines Screen Negative, U Benzodiazepines Scrn Negative, Urine Cocaine Screen Negative, U Marijuana (THC) Screen Negative I & O for Last 24 hours: Intake & Output 07/26/18 07/27/18 07/28/18 07/29/18 11:59 11:59 11:59 11:59 Intake Total 1000 / 1000 Balance 1000 / 1000 Weight 144 lb 8 oz Narrative: Patient is agitated. He is continually trying to remove the protective mittens. He does not answer questions. His eyes are shut. He does move all extremities. His lungs are clear. His heart has a regular rate and rhythm. Abdomen is soft Assessment and Plan (1) Acute psychosis Current visit: Yes Status: Acute Category: Medical Code(s): F23 - Brief psychotic disorder (2) Altered mental status Current visit: No Status: Acute Category: Medical Code(s): R41.82 - Altered mental status, unspecified - Assessment and plan all Dx Assessment and Plan for all problems:: 1. Continue IM Zyprexa as ordered 2. Discontinue lorazepam as review of records seems to indicate this medication actually increases his agitation 3. Case management consult
--- NOTE | 2018-07-29 12:48 | Pharmacy Consult Notes ---
[facility] Pharmacy VTE Monitoring - Patient Demographics Admission date: 07/29/18 Report Date: 07/29/18 Time: 12:47 Allergies/Adverse Reactions: Patient Allergies codeine [CODEINE] Allergy (Unknown, Verified 07/29/18 03:33) Unknown allergy reaction meperidine [From DEMEROL] Allergy (Unknown, Verified 07/29/18 03:33) Unknown allergy reaction oxycodone [From PERCOCET] Allergy (Unknown, Verified 07/29/18 03:33) Unknown allergy reaction Penicillins [PENICILLINS] Allergy (Unknown, Verified 07/29/18 03:33) Unknown allergy reaction sertraline [From ZOLOFT] Allergy (Unknown, Verified 07/29/18 03:33) Unknown allergy reaction Height: 1.85 m Weight: 65.544 kg Patient Problems: Current Active Problems (Updated 07/29/18 @ 08:52 by Rhett Reilly MD) Acute psychosis (Acute) Pacemaker (Acute) - VTE Risk Labs: VTE Related Lab Results Hgb 15.1 g/dL (14.1-18.0) 07/29/18 03:55 Hct 47.5 % (42.0-52.0) 07/29/18 03:55 Plt Count 324 K/mm3 (142-424) 07/29/18 03:55 BUN 8 mg/dL (7-18) 07/29/18 03:55 Creatinine 1.12 mg/dL (0.70-1.30) 07/29/18 03:55 Estimated Creat Clear 79 mL/min (50-200) 07/29/18 03:55 - Prophylaxis VTE Prophylaxis Ordered?: Yes Types of VTE Prophylaxis: TEDS Knee High Location of Applied Device: Bilateral Lower Extremeties - VTE Diagnosis Confirmed Treatment or plan recommended: Continue Current Treatment
[2018-07-30 05:51] LABS: Basophils # 0.1 K/mm3 (0-0.2); Basophils % 1.2 % (0.1-2.0); Eosinophils # 0.2 K/mm3 (0.0-0.4); Hematocrit 46.9 % (42.0-52.0); Hemoglobin 15.7 g/dL (14.1-18.0); Lymphocytes # 2.7 K/mm3 (0.7-4.5); Mean Corpuscular HGB Conc 33.6 g/dL (31.8-35.4); Mean Corpuscular Hemoglobin 30.9 pg (27.0-31.2); Mean Corpuscular Volume 92.2 fl (80-94); Mean Platelet Volume 8.1 fl (7.4-10.4); Monocytes # 0.8 K/mm3 (0.1-1.0); Monocytes % 7.4 % (1.7-9.3); Neutrophils # 6.7 K/mm3 (1.8-7.8); Neutrophils % 63.4 % (37.0-80.0); Platelet Count 289 K/mm3 (142-424); Red Blood Count 5.09 M/mm3 (4.60-6.20); Red Cell Distribution Width 13.3 % (11.5-17.5); White Blood Count 10.6 K/mm3 (4.8-10.8)
[2018-07-30 07:08] LABS: Anion Gap 15.5 mEq/L (5-15); Potassium 3.5 mmoL/L (3.5-5.1)
--- NOTE | 2018-07-30 07:33 | Progress Note ---
Internal Medicine - PN: Subj *Date: 07/30/18 *Time: 07:30 Interval history: Yesterday afternoon patient became even more agitated and due to perceived danger to himself and staff was placed in two-point restraints. Later in the evening patient seemingly snapped out of his confused agitated state and began conversing with staff. This morning he tells me he does not remember what occurred prior to presenting to the hospital. He is focused on getting his isosorbide mononitrate as he believes this is his most important medication. Exam Vital signs and Labs for Last 24 Hours: Temp Pulse Resp BP Pulse Ox 97.4 F L 98 H 20 103/76 L 100 07/30/18 04:36 07/30/18 04:36 07/30/18 04:36 07/30/18 04:36 07/30/18 04:36 Laboratory Results - last 24 hr 07/30/18 05:35: WBC 10.6, RBC 5.09, Hgb 15.7, Hct 46.9, MCV 92.2, MCH 30.9, MCHC 33.6, RDW 13.3, Plt Count 289, MPV 8.1, Neut % (Auto) 63.4, Lymph % (Auto) 26.0, [place] % (Auto) 7.4, Eos % (Auto) 2.0, Baso % (Auto) 1.2, Neut # (Auto) 6.7, Lymph # (Auto) 2.7, [place] # (Auto) 0.8, Eos # (Auto) 0.2, Baso # (Auto) 0.1 07/30/18 05:35: Sodium 145, Potassium 3.5 D, Chloride 110 H, Carbon Dioxide 23, Anion Gap 15.5 H, BUN 9, Creatinine 1.03, Estimated Creat Clear 66, Estimated GFR 74, Est GFR ( Amer) 90, Glucose 93, Calcium 9.0, Troponin I 0.08 H I & O for Last 24 hours: Intake & Output 07/27/18 07/28/18 07/29/18 07/30/18 11:59 11:59 11:59 11:59 Intake Total 1000 / 1000 Balance 999 / 999 Weight 144 lb 8 oz 132 lb 7.996 oz Narrative: Patient seems to be sleeping when I enter the room but awakens easily when I am conversing with his nurse. He answers questions appropriately. He is able to tell me some of his home medications. Lungs are clear. Heart has a regular rate and rhythm. Abdomen is soft and thin. Assessment and Plan (1) Acute psychosis Current visit: Yes Status: Acute Category: Medical Code(s): F23 - Brief psychotic disorder (2) Altered mental status Current visit: No Status: Acute Category: Medical Code(s): R41.82 - Altered mental status, unspecified - Assessment and plan all Dx Assessment and Plan for all problems:: 1. Restraints will be discontinued as long as the patient is able to manage his behavior. He understands this. 2. I will speak with his close friend who he considers a relative, Dao Lockwood, who has helped arrange for Mr. stone to live in a facility [facility]. Apparently he is due to enter this facility on Tuesday of this week
--- NOTE | 2018-07-31 07:31 | Progress Note ---
Internal Medicine - PN: Subj *Date: 07/31/18 *Time: 07:29 Interval history: Patient has had no problems overnight. Nursing staff reports patient is cooperative and has remained calm. I spoke with a gentleman named Dao Lockwood who is a close family friend of Mr. stone since his high school days who confirmed that patient is scheduled to enter [facility] on Tuesday of this week. Mr. Castano is the one responsible for helping the patient get to this facility. This will be in [place]. Exam Vital signs and Labs for Last 24 Hours: Temp Pulse Resp BP Pulse Ox 97.5 F L 66 18 92/74 L 96 07/31/18 04:00 07/31/18 04:00 07/31/18 04:00 07/31/18 04:39 07/31/18 04:00 Laboratory Results - last 24 hr 07/30/18 05:35: Troponin I 0.08 H I & O for Last 24 hours: Intake & Output 07/28/18 07/29/18 07/30/18 07/31/18 11:59 11:59 11:59 11:59 Intake Total 1000 / 1000 1320 / 1320 Balance 1000 / 1000 1320 / 1320 Weight 144 lb 8 oz 132 lb 7.996 oz 140 lb 6 oz - Constitutional no acute distress - *Routine Respiratory Exam Present: CTA bilaterally - *Routine Cardiovascular Exam Present: RRR Assessment and Plan (1) Acute psychosis Current visit: Yes Status: Acute Category: Medical Code(s): F23 - Brief psychotic disorder (2) Altered mental status Current visit: No Status: Acute Category: Medical Code(s): R41.82 - Altered mental status, unspecified (3) Anoxic brain injury Current visit: Yes Status: Chronic Category: Medical Code(s): G93.1 - Anoxic brain damage, not elsewhere classified - Assessment and plan all Dx Assessment and Plan for all problems:: Patient will be kept in house until tomorrow morning at which point he will be discharged and Mr. Castano will take him to [place]
--- NOTE | 2018-08-01 07:00 | Progress Note ---
Internal Medicine - PN: Subj *Date: 08/01/18 *Time: 06:57 Interval history: Patient has been stable over the last 24 hours without any abnormal behaviors. He has not required PRN sedatives or antipsychotics. Patient has not showed any signs of agitation or altered mental status. Exam Vital signs and Labs for Last 24 Hours: Temp Pulse Resp BP Pulse Ox 98.1 F 60 16 114/69 96 08/01/18 04:00 08/01/18 04:00 08/01/18 04:00 08/01/18 04:00 08/01/18 04:00 I & O for Last 24 hours: Intake & Output 07/29/18 07/30/18 07/31/18 08/01/18 11:59 11:59 11:59 11:59 Intake Total 1000 / 1000 1320 / 1320 2580 / 2580 Balance 1000 / 1000 1320 / 1320 2580 / 2580 Weight 144 lb 8 oz 132 lb 7.996 oz 140 lb 6 oz 143 lb 2 oz Narrative: Patient sleeping comfortably in bed. He awakens easily. He denies complaint. Lungs are clear. Heart has a regular rate and rhythm. Pacemaker is noticeable in the upper chest Assessment and Plan (1) Acute psychosis Current visit: Yes Status: Acute Category: Medical Code(s): F23 - Brief psychotic disorder (2) Altered mental status Current visit: No Status: Acute Category: Medical Code(s): R41.82 - Altered mental status, unspecified (3) Anoxic brain injury Current visit: Yes Status: Chronic Category: Medical Code(s): G93.1 - Anoxic brain damage, not elsewhere classified - Assessment and plan all Dx Assessment and Plan for all problems:: We are awaiting word from [facility] about precertification for patient's stay there. Ideally patient can get trained therefore life skills and life management so that he can continue to care for himself independently. His Seroquel will be restarted this morning
--- NOTE | 2018-08-01 10:06 | Discharge Summary ---
General - General Admission date:: 07/29/18 Discharge date: 08/01/18 HPI HPI: 58-year-old male with suspected schizophrenia as well as possible alcoholism was brought to the ER via law enforcement due to disruptive behavior at home disturbing his neighbors. This history was received from the ER. Patient is in no shape to provide any history and actually does not answer any questions asked of him. He is currently quite agitated. In the emergency department he received intramuscular Zyprexa x1 as well as IV lorazepam. Nursing staff reports patient was calm until transfer up to the second floor and since that time he has been agitated. He is wearing protective mitts. Hospital Course Hospital Course: Patient was admitted to the floor and approximately 12 hours later was lucid and cooperative. He was given zyprexa IM for agitation twice within the first 12 hours of admission and once ulises following morning. He required soft restraints to protect staff as well as himself. It had already been arranged for patient to enter [facility] an outpatient. As he was in an inpatietn this required reevaluation. Patient was accepted. He was discharged on 08/01 adn will be transported by family friend Aurelio Lockwood to [facility] in [facility] Objective Vital signs: Temp Pulse Resp BP Pulse Ox 97.9 F 75 18 112/86 96 08/01/18 08:00 08/01/18 08:00 08/01/18 08:00 08/01/18 08:00 08/01/18 08:00 DS: Diagnosis - Discharge Diagnosis (1) Acute psychosis Status: Acute (2) Altered mental status Status: Acute (3) Anoxic brain injury Status: Chronic Discharge Plan - Patient Discharge Instructions ACTIVITY: Continue current activity DIET: continue same diet Patient Instructions: DI for Psychosis - Follow up Plan Disposition: Xfer Other Home Medications: Home Medications Medication Instructions Recorded Confirmed Type Baclofen [Lioresal 10mg tablet] 10 mg PO TIDP PRN 06/07/18 07/29/18 History Quetiapine Fumarate 100 mg PO HS 06/07/18 07/29/18 History OLANZapine [Olanzapine] 20 mg PO DAILY #30 tab 06/30/18 07/29/18 Rx Cyclobenzaprine HCl 5 mg PO Q8HP PRN 07/29/18 07/29/18 History [Cyclobenzaprine 5mg Tab] Aspirin [Aspirin EC 325mg Tab] 325 mg PO DAILY #30 tab 08/01/18 Rx Atorvastatin Calcium [Atorvastatin 40 mg PO HS #30 tab 08/01/18 Rx 40mg Tab] Bisoprolol Fumarate [Zebeta 5mg 5 mg PO DAILY #30 tab 08/01/18 Rx tablet] Furosemide [Furosemide 20mg Tab] 20 mg PO DAILY #30 tab 08/01/18 Rx Isosorbide Mononitrate [Imdur 30mg 30 mg PO DAILY #30 tab 08/01/18 Rx ER tablet] Lisinopril [Lisinopril 5mg Tablet] 5 mg PO DAILY #30 tab 08/01/18 Rx Quetiapine Fumarate [Seroquel 25mg 25 mg PO HS #30 tab 08/01/18 Rx tablet] Prescriptions/Medication Reconciliation: New Quetiapine Fumarate [Seroquel 25mg tablet] 25 mg PO HS #30 tab Continued Atorvastatin Calcium [Atorvastatin 40mg Tab] 40 mg PO HS #30 tab Furosemide [Furosemide 20mg Tab] 20 mg PO DAILY #30 tab Isosorbide Mononitrate [Imdur 30mg ER tablet] 30 mg PO DAILY #30 tab Lisinopril [Lisinopril 5mg Tablet] 5 mg PO DAILY #30 tab Bisoprolol Fumarate [Zebeta 5mg tablet] 5 mg PO DAILY #30 tab Aspirin [Aspirin EC 325mg Tab] 325 mg PO DAILY #30 tab Discontinued Quetiapine Fumarate 100 mg PO HS Baclofen [Lioresal 10mg tablet] 10 mg PO TIDP PRN PRN Reason: Muscle Spasm OLANZapine [Olanzapine] 20 mg PO DAILY #30 tab Cyclobenzaprine HCl [Cyclobenzaprine 5mg Tab] 5 mg PO Q8HP PRN PRN Reason: Muscle Spasm
== END 2018-08-01 10:58 | disposition home or self-care (01) ==
LOC: ER 03:36 → 2ND 03:36
PROVIDERS: ADMIT Family Medicine; ATTEND Family Medicine
CPT/HCPCS: 36415; 70450; 71010; 71045; 80048; 80053; 80305; 80329; 81001; 84484; 85025; 93005; 96365; 96372; 99284; G0378